=== PATIENT | male | born 1960 | race Caucasian/White ===

== ENCOUNTER 2017-10-16 23:48 | Inpatient (IN) | payer BC, MEDICARE, OTHER ==
[~2017-10-16] VITALS: Ht 177.8 cm; Wt 108.0 kg
[~2017-10-16 23:48] MED LIST: ALD25T PO; ASPI-612 PO; CARV-50 PO; FURO80TA87 PO; LISI-645 PO
[2017-10-17 01:32] LABS: INR 1.4 INR; PARTIAL THROMBOPLASTIN TIME 31 SECONDS (22-32); PROTHROMBIN TIME 14.2 SECONDS (9.0-12.0)
[2017-10-17 01:59] LABS: ALANINE AMINOTRANSFERASE 30 U/L (12-78); ALBUMIN 3.2 G/DL (3.4-5.0); ALBUMIN/GLOBULIN RATIO 0.8 (1.1-1.5); ALKALINE PHOSPHATASE 135 IU/L (46-116); ANION GAP 6 (8-16); ASPARTATE AMINO TRANSFERASE 23 U/L (10-37); BILIRUBIN,TOTAL 0.6 MG/DL (0.1-1.0); BLOOD UREA NITROGEN 39 MG/DL (7-18); BUN/CREATININE RATIO 19.5 (5.4-32.0); CALCIUM 8.7 MG/DL (8.5-10.1); CHLORIDE 102 MMOL/L (99-107); GLUCOSE 157 MG/DL (70-104); POTASSIUM 3.8 MMOL/L (3.5-5.1); SODIUM 141 MMOL/L (135-145); TOTAL CARBON DIOXIDE 33.1 MMOL/L (24-32); eGFR 35 ML/MIN
[2017-10-17] MEDS ORDERED: aspirin 81mg tab.chew PO ONE (02:40)
[2017-10-17] MEDS ORDERED: furosemide 10 MG/1 ML 10ml inj IV ONE ×2 (02:40→09:25)
[2017-10-17] MEDS: metoprolol tartrate 1mg/ml inj IV SCH ×3 (03:07→04:02)
[2017-10-17] MEDS ORDERED: mag hydrox/Alum hydrox/simeth 30ml oral suspension PO PRN (03:40)
[2017-10-17] MEDS ORDERED: potassium Cl 20 mEq SR tablet PO PRN (03:40)
[2017-10-17] MEDS ORDERED: magnesium hydroxide 30ml (MOM) UD suspension PO PRN (03:40)
[2017-10-17] MEDS ORDERED: ondansetron/PF 4mg/2ml inj IV PRN (03:40)
[2017-10-17] MEDS ORDERED: Neutra Phos packet PO PRN (03:40)
[2017-10-17] MEDS ORDERED: sodium phosphate inj. 30 MMOL in dextrose 5%-water 250 ML IV PRN (03:40)
[2017-10-17] MEDS ORDERED: magnesium 4gm in 100ml NS 100 ML IV PRN (03:40)
[2017-10-17] MEDS ORDERED: magnesium 2GM in 50ml NS 50 ML IV PRN (03:40)
[2017-10-17] MEDS ORDERED: sodium phosphate inj. 15 MMOL in dextrose 5%-water 150 ML IV PRN (03:40)
[2017-10-17] MEDS ORDERED: magnesium Cl slow-release 64mg tablet PO PRN (03:40)
[2017-10-17] MEDS ORDERED: acetaminophen 325mg tablet PO PRN (03:40)
[2017-10-17] MEDS ORDERED: heparin 10,000 units/1 ML INJ IV ONE (03:45)
[2017-10-17] MEDS ORDERED: nitroGLYCERIN-Tridil 50MG/D5W 250 ML IV SCH (03:45)
[2017-10-17] MEDS ORDERED: heparin 10,000 units/1 ML INJ IV PRN (03:45)
[2017-10-17 05:52] LABS: ALBUMIN 3.2 G/DL (3.4-5.0); ANION GAP 4 (8-16); BLOOD UREA NITROGEN 38 MG/DL (7-18); CALCIUM 8.6 MG/DL (8.5-10.1); CHLORIDE 103 MMOL/L (99-107); GLUCOSE 118 MG/DL (70-104); MAGNESIUM 2.2 MG/DL (1.5-2.4); PHOSPHORUS 4.9 MG/DL (2.3-4.5); POTASSIUM 3.8 MMOL/L (3.5-5.1); SODIUM 143 MMOL/L (135-145); TOTAL CARBON DIOXIDE 36.1 MMOL/L (24-32); eGFR 35 ML/MIN
[2017-10-17 06:57] LABS: BASOPHILS # (AUTO) 0.1 X10'3 (0-0.2); BASOPHILS % (AUTO) 0.7 % (0-1); EOSINOPHILS # (AUTO) 0.3 X10'3 (0-0.9); EOSINOPHILS % (AUTO) 2.9 % (0-6); HEMATOCRIT 46.8 % (42.0-52.0); HEMOGLOBIN 15.5 g/dl (14.0-17.9); LYMPHOCYTES % (AUTO) 17.5 % (21-51); MEAN CORPUSCULAR HEMOGLOBIN 27.7 PG (27.0-31.0); MEAN CORPUSCULAR HGB CONC 33.2 % (33.0-36.5); MEAN CORPUSCULAR VOLUME 83.5 FL (78-98); MEAN PLATELET VOLUME 8.9 FL (7.4-10.4); MONOCYTES # (AUTO) 0.8 X10'3 (0-0.9); MONOCYTES % (AUTO) 6.7 % (2-12); NEUTROPHILS # (AUTO) 8.2 X10'3 (1.8-7.7); NEUTROPHILS % (AUTO) 72.2 % (42-75); PLATELET COUNT 213 X10'3 (140-440); RED CELL DISTRIBUTION WIDTH 15.9 % (11.5-14.5); WHITE BLOOD COUNT 11.3 X10'3 (4.5-11.0)
[2017-10-17] MEDS: nicotine 21mg patch - 24 hr TD SCH (08:50)
[2017-10-17] MEDS ORDERED: FURO-150 PO (08:50)
[2017-10-17] MEDS: carVEDilol 12.5mg tablet PO SCH ×2 (08:51→20:51)
[2017-10-17] MEDS: aspirin 81mg tablet.DR PO SCH (08:51)
[2017-10-17] MEDS: pantoprazole 40mg Tablet.DR PO SCH (08:51)
[2017-10-17] MEDS: lisinopril 20mg tablet PO SCH (08:51)
[2017-10-17] MEDS ORDERED: labetalol 20mg/4ml (5mg/ml) syringe IV PRN (09:25)
[2017-10-17] MEDS ORDERED: AMLO2.5T2 PO (09:34)
[2017-10-17] MEDS ORDERED: RIVA20TA PO (09:36)
[2017-10-17] MEDS ORDERED: amLODIPine 5mg tablet PO ONE (09:40)
[2017-10-17] MEDS ORDERED: rivaroxaban 20mg tablet PO SCH (09:40)
[2017-10-17] MEDS ORDERED: hydrALAZINE 20mg/ml inj. IV PRN (09:55)
[2017-10-17] MEDS: spironolactone 25 MG tablet PO SCH ×2 (10:21→20:00)
[2017-10-17] MEDS ORDERED: rivaroxaban 20mg tablet PO ONE (10:40)
[2017-10-17 10:53] LABS: ALBUMIN 3.1 G/DL (3.4-5.0); ANION GAP 6 (8-16); BLOOD UREA NITROGEN 41 MG/DL (7-18); BUN/CREATININE RATIO 21.6 (5.4-32.0); CALCIUM 8.6 MG/DL (8.5-10.1); CHLORIDE 102 MMOL/L (99-107); GLUCOSE 160 MG/DL (70-104); MAGNESIUM 2.2 MG/DL (1.5-2.4); PHOSPHORUS 4.9 MG/DL (2.3-4.5); POTASSIUM 3.7 MMOL/L (3.5-5.1); SODIUM 144 MMOL/L (135-145); TOTAL CARBON DIOXIDE 35.6 MMOL/L (24-32); eGFR 37 ML/MIN
[2017-10-17 16:15] VITALS: BP 144/89
[2017-10-17 18:07] LABS: ANION GAP 5 (8-16); BLOOD UREA NITROGEN 39 MG/DL (7-18); BUN/CREATININE RATIO 20.5 (5.4-32.0); CALCIUM 8.8 MG/DL (8.5-10.1); CHLORIDE 101 MMOL/L (99-107); GLUCOSE 75 MG/DL (70-104); MAGNESIUM 2.2 MG/DL (1.5-2.4); PHOSPHORUS 3.6 MG/DL (2.3-4.5); POTASSIUM 3.4 MMOL/L (3.5-5.1); SODIUM 146 MMOL/L (135-145); TOTAL CARBON DIOXIDE 39.6 MMOL/L (24-32); eGFR 37 ML/MIN
[2017-10-17 18:08] LABS: ALBUMIN 3.3 G/DL (3.4-5.0)
[2017-10-17 19:00] VITALS: BP 159/96
[2017-10-17] MEDS: furosemide 40mg/4ml inj IV SCH (20:50)
[2017-10-17 22:21] LABS: ALBUMIN 3.7 G/DL (3.4-5.0); ANION GAP 7 (8-16); BLOOD UREA NITROGEN 33 MG/DL (7-18); BUN/CREATININE RATIO 18.3 (5.4-32.0); CALCIUM 9.2 MG/DL (8.5-10.1); CHLORIDE 98 MMOL/L (99-107); GLUCOSE 167 MG/DL (70-104); MAGNESIUM 2.1 MG/DL (1.5-2.4); PHOSPHORUS 3.2 MG/DL (2.3-4.5); POTASSIUM 3.2 MMOL/L (3.5-5.1); SODIUM 144 MMOL/L (135-145); TOTAL CARBON DIOXIDE 39.3 MMOL/L (24-32); eGFR 39 ML/MIN
[2017-10-18] VITALS (7 sets, daily range): BP systolic 113–166; BP diastolic 62–100
[2017-10-18] MEDS: potassium Cl 20 mEq SR tablet PO PRN ×5 (00:58→20:09)
[2017-10-18 05:35] LABS: BASOPHILS # (AUTO) 0.1 X10'3 (0-0.2); BASOPHILS % (AUTO) 0.4 % (0-1); EOSINOPHILS # (AUTO) 0.2 X10'3 (0-0.9); EOSINOPHILS % (AUTO) 2.1 % (0-6); HEMATOCRIT 49.2 % (42.0-52.0); HEMOGLOBIN 16.2 g/dl (14.0-17.9); LYMPHOCYTES # (AUTO) 1.2 X10'3 (1.1-4.8); LYMPHOCYTES % (AUTO) 10.2 % (21-51); MEAN CORPUSCULAR HEMOGLOBIN 27.8 PG (27.0-31.0); MEAN CORPUSCULAR HGB CONC 32.9 % (33.0-36.5); MEAN CORPUSCULAR VOLUME 84.7 FL (78-98); MONOCYTES # (AUTO) 0.8 X10'3 (0-0.9); MONOCYTES % (AUTO) 6.6 % (2-12); NEUTROPHILS # (AUTO) 9.4 X10'3 (1.8-7.7); NEUTROPHILS % (AUTO) 80.7 % (42-75); PLATELET COUNT 229 X10'3 (140-440); RED BLOOD COUNT 5.81 X10'6 (4.70-6.10); WHITE BLOOD COUNT 11.6 X10'3 (4.5-11.0)
[2017-10-18 06:29] LABS: ALANINE AMINOTRANSFERASE 31 U/L (12-78); ALBUMIN 3.5 G/DL (3.4-5.0); ALBUMIN/GLOBULIN RATIO 0.8 (1.1-1.5); ALKALINE PHOSPHATASE 147 IU/L (46-116); ANION GAP 6 (8-16); ASPARTATE AMINO TRANSFERASE 26 U/L (10-37); BILIRUBIN,TOTAL 1.2 MG/DL (0.1-1.0); BLOOD UREA NITROGEN 33 MG/DL (7-18); BUN/CREATININE RATIO 19.4 (5.4-32.0); CALCIUM 9.1 MG/DL (8.5-10.1); CHLORIDE 99 MMOL/L (99-107); GLUCOSE 156 MG/DL (70-104); MAGNESIUM 2.3 MG/DL (1.5-2.4); PHOSPHORUS 3.4 MG/DL (2.3-4.5); POTASSIUM 3.4 MMOL/L (3.5-5.1); SODIUM 142 MMOL/L (135-145); TOTAL PROTEIN 7.7 G/DL (6.4-8.2); eGFR 42 ML/MIN
[2017-10-18] MEDS: pantoprazole 40mg Tablet.DR PO SCH (07:13)
[2017-10-18] MEDS: furosemide 40mg/4ml inj IV SCH ×2 (07:13→20:08)
[2017-10-18] MEDS: aspirin 81mg tablet.DR PO SCH (07:14)
[2017-10-18] MEDS: spironolactone 25 MG tablet PO SCH ×2 (07:14→20:09)
[2017-10-18] MEDS: carVEDilol 12.5mg tablet PO SCH (07:14)
[2017-10-18] MEDS: lisinopril 20mg tablet PO SCH (07:15)
[2017-10-18] MEDS: rivaroxaban 20mg tablet PO SCH (07:15)
[2017-10-18] MEDS: nicotine 21mg patch - 24 hr TD SCH (07:20)
[2017-10-18] MEDS ORDERED: amLODIPine 5mg tablet PO SCH (08:00)
[2017-10-18] MEDS ORDERED: enoxaparin 40mg/0.4ml syringe SUBCUT SCH (19:50)
[2017-10-18] MEDS: pantoprazole 40 MG vial IV SCH (19:55)
[2017-10-18] MEDS ORDERED: carvedilol 6.25mg tablet PO SCH (20:00)
[2017-10-19 02:00] VITALS: BP 130/74
[2017-10-19 05:57] LABS: BASOPHILS % (AUTO) 0.2 % (0-1); EOSINOPHILS # (AUTO) 0.3 X10'3 (0-0.9); EOSINOPHILS % (AUTO) 2.5 % (0-6); HEMATOCRIT 51.1 % (42.0-52.0); HEMOGLOBIN 16.4 g/dl (14.0-17.9); LYMPHOCYTES # (AUTO) 1.4 X10'3 (1.1-4.8); MEAN CORPUSCULAR HEMOGLOBIN 27.5 PG (27.0-31.0); MEAN CORPUSCULAR VOLUME 85.9 FL (78-98); MEAN PLATELET VOLUME 9.3 FL (7.4-10.4); MONOCYTES # (AUTO) 0.9 X10'3 (0-0.9); MONOCYTES % (AUTO) 7.4 % (2-12); NEUTROPHILS % (AUTO) 77.9 % (42-75); PLATELET COUNT 229 X10'3 (140-440); RED BLOOD COUNT 5.95 X10'6 (4.70-6.10); RED CELL DISTRIBUTION WIDTH 16.1 % (11.5-14.5); WHITE BLOOD COUNT 11.6 X10'3 (4.5-11.0)
[2017-10-19 06:07] LABS: ALANINE AMINOTRANSFERASE 22 U/L (12-78); ALBUMIN 3.3 G/DL (3.4-5.0); ALBUMIN/GLOBULIN RATIO 0.8 (1.1-1.5); ALKALINE PHOSPHATASE 140 IU/L (46-116); ANION GAP 5 (8-16); ASPARTATE AMINO TRANSFERASE 21 U/L (10-37); BILIRUBIN,TOTAL 0.9 MG/DL (0.1-1.0); BLOOD UREA NITROGEN 30 MG/DL (7-18); BUN/CREATININE RATIO 17.6 (5.4-32.0); CALCIUM 9.1 MG/DL (8.5-10.1); CHLORIDE 99 MMOL/L (99-107); GLUCOSE 174 MG/DL (70-104); MAGNESIUM 2.2 MG/DL (1.5-2.4); PHOSPHORUS 3.2 MG/DL (2.3-4.5); POTASSIUM 3.9 MMOL/L (3.5-5.1); SODIUM 141 MMOL/L (135-145); TOTAL CARBON DIOXIDE 37.1 MMOL/L (24-32); TOTAL PROTEIN 7.3 G/DL (6.4-8.2); eGFR 42 ML/MIN
[2017-10-19 07:00] VITALS: BP 134/61
[2017-10-19] MEDS: spironolactone 25 MG tablet PO SCH ×2 (09:21→19:53)
[2017-10-19] MEDS: aspirin 81mg tablet.DR PO SCH (09:21)
[2017-10-19] MEDS: rivaroxaban 20mg tablet PO SCH (09:21)
[2017-10-19] MEDS: lisinopril 20mg tablet PO SCH (09:21)
[2017-10-19] MEDS: carVEDilol 12.5mg tablet PO SCH ×2 (09:22→19:53)
[2017-10-19] MEDS: pantoprazole 40 MG vial IV SCH (09:22)
[2017-10-19] MEDS: furosemide 40mg/4ml inj IV SCH ×2 (09:22→19:55)
[2017-10-19] MEDS ORDERED: pneumococcal 23-VAL P-sac vacc 25 mcg/0.5ml vial IMVAC ONE (10:00)
[2017-10-19 11:00] VITALS: BP 121/67
[2017-10-19 15:00] VITALS: BP 138/89
[2017-10-19 18:30] VITALS: BP 144/66
[2017-10-19 22:00] VITALS: BP 104/76
[2017-10-20 03:00] VITALS: BP 145/89
[2017-10-20 05:21] LABS: BASOPHILS # (AUTO) 0.1 X10'3 (0-0.2); BASOPHILS % (AUTO) 0.4 % (0-1); EOSINOPHILS # (AUTO) 0.2 X10'3 (0-0.9); EOSINOPHILS % (AUTO) 1.7 % (0-6); HEMATOCRIT 50.9 % (42.0-52.0); HEMOGLOBIN 16.4 g/dl (14.0-17.9); LYMPHOCYTES # (AUTO) 1.2 X10'3 (1.1-4.8); LYMPHOCYTES % (AUTO) 8.3 % (21-51); MEAN CORPUSCULAR HEMOGLOBIN 27.5 PG (27.0-31.0); MEAN CORPUSCULAR HGB CONC 32.2 % (33.0-36.5); MEAN CORPUSCULAR VOLUME 85.6 FL (78-98); MONOCYTES # (AUTO) 0.9 X10'3 (0-0.9); MONOCYTES % (AUTO) 6.4 % (2-12); NEUTROPHILS # (AUTO) 11.7 X10'3 (1.8-7.7); NEUTROPHILS % (AUTO) 83.2 % (42-75); PLATELET COUNT 218 X10'3 (140-440); RED BLOOD COUNT 5.94 X10'6 (4.70-6.10)
[2017-10-20 06:00] LABS: ALANINE AMINOTRANSFERASE 26 U/L (12-78); ALBUMIN 3.4 G/DL (3.4-5.0); ALBUMIN/GLOBULIN RATIO 0.8 (1.1-1.5); ALKALINE PHOSPHATASE 142 IU/L (46-116); ANION GAP 5 (8-16); ASPARTATE AMINO TRANSFERASE 24 U/L (10-37); BLOOD UREA NITROGEN 32 MG/DL (7-18); CALCIUM 9.4 MG/DL (8.5-10.1); CHLORIDE 98 MMOL/L (99-107); GLUCOSE 130 MG/DL (70-104); MAGNESIUM 2.1 MG/DL (1.5-2.4); POTASSIUM 3.9 MMOL/L (3.5-5.1); SODIUM 142 MMOL/L (135-145); TOTAL CARBON DIOXIDE 39.5 MMOL/L (24-32); TOTAL PROTEIN 7.7 G/DL (6.4-8.2); eGFR 45 ML/MIN
[2017-10-20] MEDS: pantoprazole 40mg Tablet.DR PO SCH (07:58)
[2017-10-20] MEDS: rivaroxaban 20mg tablet PO SCH (07:58)
[2017-10-20] MEDS: spironolactone 25 MG tablet PO SCH ×2 (07:58→20:12)
[2017-10-20] MEDS: lisinopril 20mg tablet PO SCH (07:58)
[2017-10-20] MEDS: aspirin 81mg tablet.DR PO SCH (07:58)
[2017-10-20] MEDS: furosemide 40mg/4ml inj IV SCH ×2 (07:58→20:12)
[2017-10-20] MEDS: carVEDilol 12.5mg tablet PO SCH ×2 (07:58→20:12)
[2017-10-20] MEDS: nicotine 21mg patch - 24 hr TD SCH ×2 (07:59→08:00)
[2017-10-20] MEDS: normal saline 1000ml 1,000 ML IV SCH (10:25)
[2017-10-20] MEDS: CefTRIAXone/D5W-Rocephin 1gm 50 ML IV SCH (10:53)
[2017-10-20 11:00] VITALS: BP 133/80
[2017-10-20 11:12] LABS: CLARITY,URINE CLEAR (Clear); COLOR,URINE STRAW (Yellow); GLUCOSE, URINE NEGATIVE (Neg); KETONES,URINE NEGATIVE (Neg); LEUKOCYTE ESTERASE ,URINE NEGATIVE (Neg); NITRITES, URINE NEGATIVE (Neg); OCCULT BLOOD,URINE TRACE-INTACT (Neg); PROTEIN,URINE TRACE mg/dl (Neg)
[2017-10-20 11:13] LABS: UA COLLECTION TYPE NON-SPECIFIED
[2017-10-20 11:25] LABS: BACTERIA,URINE FEW /HPF (Neg); RBC,URINE 0-2 /HPF (0-2); SQUAMOUS EPITHELIAL CELL,UR FEW /LPF (FEW); WBC,URINE 0-4 /HPF (0-4)
[2017-10-20 11:30] LABS: URINE AMPHETAMINE SCREEN NEGATIVE (Neg); URINE BARBITUATE SCREEN NEGATIVE (Neg); URINE BENZODIAZEPINES SCREEN NEGATIVE (Neg); URINE CANNABINOID SCREEN NEGATIVE (Neg); URINE COCAINE SCREEN NEGATIVE (Neg); URINE METHADONE SCREEN NEGATIVE (Neg); URINE OPIATE SCREEN NEGATIVE (Neg); URINE PHENCYCLIDINE SCREEN NEGATIVE (Neg)
[2017-10-20 12:05] VITALS: BP 182/91
[2017-10-20 15:00] VITALS: BP 139/87
[2017-10-20] MEDS: ibuprofen 200mg tablet PO PRN (15:38)
[2017-10-20 19:00] VITALS: BP 126/82
[2017-10-20 23:00] VITALS: BP 135/84
[2017-10-21 03:00] VITALS: BP 125/84
[2017-10-21] MEDS: normal saline 1000ml 1,000 ML IV SCH (03:29)
[2017-10-21 05:41] LABS: BASOPHILS % (AUTO) 0.2 % (0-1); EOSINOPHILS % (AUTO) 0.2 % (0-6); HEMATOCRIT 49.9 % (42.0-52.0); LYMPHOCYTES # (AUTO) 0.5 X10'3 (1.1-4.8); LYMPHOCYTES % (AUTO) 4.8 % (21-51); MEAN CORPUSCULAR HEMOGLOBIN 27.3 PG (27.0-31.0); MEAN CORPUSCULAR HGB CONC 32.1 % (33.0-36.5); MEAN CORPUSCULAR VOLUME 85.1 FL (78-98); MEAN PLATELET VOLUME 9.4 FL (7.4-10.4); MONOCYTES # (AUTO) 0.5 X10'3 (0-0.9); NEUTROPHILS % (AUTO) 89.8 % (42-75); PLATELET COUNT 160 X10'3 (140-440); RED BLOOD COUNT 5.86 X10'6 (4.70-6.10); RED CELL DISTRIBUTION WIDTH 15.7 % (11.5-14.5)
[2017-10-21 06:06] LABS: ALANINE AMINOTRANSFERASE 31 U/L (12-78); ALBUMIN 2.8 G/DL (3.4-5.0); ALBUMIN/GLOBULIN RATIO 0.7 (1.1-1.5); ALKALINE PHOSPHATASE 124 IU/L (46-116); ANION GAP 4 (8-16); ASPARTATE AMINO TRANSFERASE 29 U/L (10-37); BLOOD UREA NITROGEN 31 MG/DL (7-18); BUN/CREATININE RATIO 20.7 (5.4-32.0); CALCIUM 8.5 MG/DL (8.5-10.1); CHLORIDE 97 MMOL/L (99-107); GLUCOSE 147 MG/DL (70-104); SODIUM 135 MMOL/L (135-145); TOTAL CARBON DIOXIDE 33.8 MMOL/L (24-32); TOTAL PROTEIN 6.7 G/DL (6.4-8.2); eGFR 48 ML/MIN
[2017-10-21] MEDS: ibuprofen 200mg tablet PO PRN (06:28)
[2017-10-21 07:00] VITALS: BP 154/88
[2017-10-21] MEDS: nicotine 21mg patch - 24 hr TD SCH (07:06)
[2017-10-21] MEDS: rivaroxaban 20mg tablet PO SCH (07:06)
[2017-10-21] MEDS: furosemide 40mg/4ml inj IV SCH (07:06)
[2017-10-21] MEDS: lisinopril 20mg tablet PO SCH (07:07)
[2017-10-21] MEDS: pantoprazole 40mg Tablet.DR PO SCH (07:07)
[2017-10-21] MEDS: aspirin 81mg tablet.DR PO SCH (07:07)
[2017-10-21] MEDS: spironolactone 25 MG tablet PO SCH (07:07)
[2017-10-21] MEDS: carVEDilol 12.5mg tablet PO SCH (07:07)
[2017-10-21] MEDS: CefTRIAXone/D5W-Rocephin 1gm 50 ML IV SCH (10:57)
[2017-10-21 11:00] VITALS: BP 109/61
[2017-10-21] MEDS ORDERED: DOXY100V2 PO (11:17)
== END 2017-10-21 15:44 | disposition home or self-care (01) | DRG 280 ==
LOC: ER 23:49 → ED HOLD 10-17 03:38 → SUR 3N 10-17 16:20 → PCU 3S 10-18 15:11
PROVIDERS: ADMIT Family Medicine; ATTEND Internal Medicine
PROC: 4B02XSZ Measurement of Cardiac Pacemaker, External Approach (ICD-10-PCS; principal; 2017-10-18)
DX: I13.0 Hypertensive heart and chronic kidney disease with heart failure and stage 1 through stage 4 chronic kidney disease, or unspecified chronic kidney disease (principal); I21.4 Non-ST elevation (NSTEMI) myocardial infarction; I50.43 Acute on chronic combined systolic (congestive) and diastolic (congestive) heart failure; I47.2 Ventricular tachycardia; I44.2 Atrioventricular block, complete; N17.9 Acute kidney failure, unspecified; I27.20 Pulmonary hypertension, unspecified; L03.116 Cellulitis of left lower limb; I82.501 Chronic embolism and thrombosis of unspecified deep veins of right lower extremity; I16.1 Hypertensive emergency; I42.9 Cardiomyopathy, unspecified; J44.9 Chronic obstructive pulmonary disease, unspecified; E87.6 Hypokalemia; N18.9 Chronic kidney disease, unspecified; E78.5 Hyperlipidemia, unspecified; R73.9 Hyperglycemia, unspecified; G47.33 Obstructive sleep apnea (adult) (pediatric); I25.10 Atherosclerotic heart disease of native coronary artery without angina pectoris; F12.90 Cannabis use, unspecified, uncomplicated; F17.210 Nicotine dependence, cigarettes, uncomplicated; Z95.810 Presence of automatic (implantable) cardiac defibrillator; Z79.899 Other long term (current) drug therapy; Z79.01 Long term (current) use of anticoagulants; Z82.49 Family history of ischemic heart disease and other diseases of the circulatory system
CPT/HCPCS: 36415; 71046; 80053; 80069; 80305; 81001; 83735; 83880; 84100; 84145; 84443; 84484; 85025; 85610; 85651; 85730; 87070; 87075; 87077; 87186; 87502; 87503; 90732; 93005; 93306; 96374; 99285; A6212; A6213; A6446; A6449; C9113; J0360; J0696; J1644; J1940; J3490; J7030

== ENCOUNTER 2018-01-12 12:23 | Emergency (ER) | payer MEDICARE, OTHER ==
[~2018-01-12] VITALS: Ht 177.8 cm; Wt 114.0 kg
[~2018-01-12 12:23] MED LIST changes: -ASPI-612 PO; +DOXY100V2 PO; +FURO-150 PO; -FURO80TA87 PO; +RIVA20TA PO
[2018-01-12] MEDS ORDERED: carVEDilol 12.5mg tablet PO ONE (12:50)
[2018-01-12] MEDS ORDERED: lisinopril 10 MG tablet PO ONE (12:50)
[2018-01-12] MEDS ORDERED: furosemide 20MG tablet PO ONE (12:50)
[2018-01-12] MEDS ORDERED: oxymetazoline 15 ML nasal spray NS ONE (12:50)
[2018-01-12 14:11] VITALS: BP 179/113
[2018-01-12] MEDS ORDERED: ondansetron 4mg rapidly disintigrating tab PO ONE (14:40)
== END 2018-01-12 15:08 | disposition home or self-care (01) ==
LOC: ER 12:23
DX: R04.0 Epistaxis (principal); I11.0 Hypertensive heart disease with heart failure; I50.9 Heart failure, unspecified; J44.9 Chronic obstructive pulmonary disease, unspecified; F12.10 Cannabis abuse, uncomplicated; Z95.0 Presence of cardiac pacemaker; Z79.899 Other long term (current) drug therapy
CPT/HCPCS: 99284

== ENCOUNTER 2018-01-19 04:59 | Emergency (ER) | payer MEDICARE, OTHER ==
[~2018-01-19] VITALS: Ht 177.8 cm; Wt 114.2 kg
[2018-01-19] MEDS ORDERED: tranexamic acid 100mg/ml inj. ONE (05:19)
[2018-01-19] MEDS ORDERED: metoprolol tartrate 50mg tablet PO ONE (05:40)
[2018-01-19 06:21] VITALS: BP 145/99
[2018-01-19] MEDS ORDERED: phenylephrine 1% (X-tra strg) 15ml nasal spray NS ONE (06:55)
[2018-01-19] MEDS ORDERED: LIDOcaine 4% (40 mg/ml) topical solution 50ml TP ONE (06:55)
[2018-01-19] MEDS ORDERED: amoxicillin 250mg capsule PO ONE (07:35)
[2018-01-19] MEDS ORDERED: HYDROcodone/acetaminophen 10/325mg tab PO ONE (07:35)
[2018-01-19] MEDS ORDERED: AMOX500C2 PO (08:11)
== END 2018-01-19 08:36 | disposition home or self-care (01) ==
LOC: ER 04:59
DX: R04.0 Epistaxis (principal); I11.0 Hypertensive heart disease with heart failure; I50.9 Heart failure, unspecified; J44.9 Chronic obstructive pulmonary disease, unspecified; F17.210 Nicotine dependence, cigarettes, uncomplicated; F12.10 Cannabis abuse, uncomplicated; Z95.0 Presence of cardiac pacemaker
CPT/HCPCS: 30901; 99284

== ENCOUNTER 2018-01-21 14:16 | Emergency (ER) | payer MEDICARE, OTHER ==
[~2018-01-21] VITALS: Ht 177.8 cm; Wt 113.6 kg
[~2018-01-21 14:16] MED LIST changes: +AMOX500C2 PO
[2018-01-21 14:19] VITALS: BP 156/95
== END 2018-01-21 14:55 | disposition home or self-care (01) ==
LOC: ER 14:16
DX: Z48.00 Encounter for change or removal of nonsurgical wound dressing (principal); J44.9 Chronic obstructive pulmonary disease, unspecified; I11.0 Hypertensive heart disease with heart failure; I50.9 Heart failure, unspecified; F12.10 Cannabis abuse, uncomplicated; F17.210 Nicotine dependence, cigarettes, uncomplicated; Z95.0 Presence of cardiac pacemaker; Z79.899 Other long term (current) drug therapy
CPT/HCPCS: 99281

== ENCOUNTER 2018-06-22 01:42 | Emergency (ER) | payer MEDICARE, OTHER ==
[~2018-06-22] VITALS: Ht 177.8 cm; Wt 120.5 kg
[~2018-06-22 01:42] MED LIST changes: -AMOX500C2 PO
[2018-06-22 02:40] LABS: BASOPHILS % (AUTO) 0.2 % (0-1); EOSINOPHILS # (AUTO) 0.3 X10'3 (0-0.9); EOSINOPHILS % (AUTO) 2.8 % (0-6); HEMOGLOBIN 14.8 g/dl (14.0-17.9); LYMPHOCYTES # (AUTO) 1.5 X10'3 (1.1-4.8); LYMPHOCYTES % (AUTO) 13.7 % (21-51); MEAN CORPUSCULAR HEMOGLOBIN 23.7 PG (27.0-31.0); MEAN CORPUSCULAR HGB CONC 30.1 % (33.0-36.5); MEAN CORPUSCULAR VOLUME 78.7 FL (78-98); MEAN PLATELET VOLUME 9.5 FL (7.4-10.4); MONOCYTES % (AUTO) 9.2 % (2-12); NEUTROPHILS # (AUTO) 8.3 X10'3 (1.8-7.7); NEUTROPHILS % (AUTO) 74.1 % (42-75); PLATELET COUNT 235 X10'3 (140-440); RED BLOOD COUNT 6.23 X10'6 (4.70-6.10); RED CELL DISTRIBUTION WIDTH 18.5 % (11.5-14.5); WHITE BLOOD COUNT 11.2 X10'3 (4.5-11.0)
[2018-06-22] MEDS ORDERED: SACU1TAB (02:43)
[2018-06-22] MEDS ORDERED: ALBU18HF2 (02:44)
[2018-06-22 02:49] LABS: INR 1.2 INR; PARTIAL THROMBOPLASTIN TIME 28 SECONDS (22-32); PROTHROMBIN TIME 12.8 SECONDS (9.0-12.0)
[2018-06-22 02:54] LABS: ALANINE AMINOTRANSFERASE 27 U/L (12-78); ALBUMIN 3.2 G/DL (3.4-5.0); ALBUMIN/GLOBULIN RATIO 0.8 (1.1-1.5); ALKALINE PHOSPHATASE 159 IU/L (46-116); ANION GAP 4 (8-16); ASPARTATE AMINO TRANSFERASE 31 U/L (10-37); BILIRUBIN,TOTAL 0.9 MG/DL (0.1-1.0); BLOOD UREA NITROGEN 34 MG/DL (7-18); BUN/CREATININE RATIO 19.2 (5.4-32.0); CALCIUM 8.8 MG/DL (8.5-10.1); CHLORIDE 102 MMOL/L (99-107); CREATININE 1.77 MG/DL (0.60-1.10); GLUCOSE 147 MG/DL (70-104); POTASSIUM 4.1 MMOL/L (3.5-5.1); SODIUM 142 MMOL/L (135-145); TOTAL CARBON DIOXIDE 35.7 MMOL/L (24-32); TOTAL PROTEIN 7.2 G/DL (6.4-8.2); eGFR 40 ML/MIN
[2018-06-22 03:01] LABS: MAGNESIUM 2.1 MG/DL (1.5-2.4); PHOSPHORUS 3.8 MG/DL (2.3-4.5)
[2018-06-22] MEDS ORDERED: furosemide 10 MG/1 ML 10ml inj IV ONE (03:10)
[2018-06-22 03:29] VITALS: BP 165/89
== END 2018-06-22 03:59 | disposition home or self-care (01) ==
LOC: ER 01:42
DX: I11.0 Hypertensive heart disease with heart failure (principal); I50.9 Heart failure, unspecified; R60.0 Localized edema; J44.9 Chronic obstructive pulmonary disease, unspecified; Z95.0 Presence of cardiac pacemaker; Z79.899 Other long term (current) drug therapy
CPT/HCPCS: 36415; 71046; 80053; 83735; 83880; 84100; 84484; 85025; 85610; 85730; 93005; 96374; 99285; J1940

== ENCOUNTER 2018-07-12 01:26 | Emergency (ER) | payer MEDICARE, OTHER ==
[~2018-07-12] VITALS: Ht 177.8 cm; Wt 121.4 kg
[~2018-07-12 01:26] MED LIST changes: +ALBU18HF2; -ALD25T PO; -DOXY100V2 PO; -LISI-645 PO; +SACU1TAB
[2018-07-12 01:32] VITALS: BP 160/121
[2018-07-12 02:10] LABS: EOSINOPHILS # (AUTO) 0.3 X10'3 (0-0.9); HEMATOCRIT 47.9 % (42.0-52.0); HEMOGLOBIN 14.7 g/dl (14.0-17.9); MEAN CORPUSCULAR HEMOGLOBIN 24.2 PG (27.0-31.0); NEUTROPHILS # (AUTO) 7.5 X10'3 (1.8-7.7); RED CELL DISTRIBUTION WIDTH 18.3 % (11.5-14.5)
[2018-07-12 02:14] LABS: BASOPHILS % (AUTO) 0.2 % (0-1); LYMPHOCYTES # (AUTO) 1.5 X10'3 (1.1-4.8); LYMPHOCYTES % (AUTO) 15.3 % (21-51); MEAN CORPUSCULAR HGB CONC 30.6 % (33.0-36.5); MEAN CORPUSCULAR VOLUME 78.8 FL (78-98); MEAN PLATELET VOLUME 9.3 FL (7.4-10.4); NEUTROPHILS % (AUTO) 74.5 % (42-75); PLATELET COUNT 194 X10'3 (140-440); RED BLOOD COUNT 6.07 X10'6 (4.70-6.10)
[2018-07-12 02:15] LABS: MONOCYTES # (AUTO) 0.7 X10'3 (0-0.9)
[2018-07-12 02:26] LABS: ALANINE AMINOTRANSFERASE 31 U/L (12-78); ALBUMIN 3.1 G/DL (3.4-5.0); ALBUMIN/GLOBULIN RATIO 0.7 (1.1-1.5); ALKALINE PHOSPHATASE 194 IU/L (46-116); ANION GAP 7 (8-16); ASPARTATE AMINO TRANSFERASE 31 U/L (10-37); BILIRUBIN,TOTAL 0.9 MG/DL (0.1-1.0); BLOOD UREA NITROGEN 45 MG/DL (7-18); BUN/CREATININE RATIO 24.1 (5.4-32.0); CALCIUM 8.9 MG/DL (8.5-10.1); CHLORIDE 101 MMOL/L (99-107); CREATININE 1.87 MG/DL (0.60-1.10); GLUCOSE 97 MG/DL (70-104); POTASSIUM 4.2 MMOL/L (3.5-5.1); SODIUM 140 MMOL/L (135-145); TOTAL CARBON DIOXIDE 32.5 MMOL/L (24-32); TOTAL PROTEIN 7.4 G/DL (6.4-8.2); eGFR 37 ML/MIN
[2018-07-12 02:32] LABS: MAGNESIUM 2.2 MG/DL (1.5-2.4)
[2018-07-12] MEDS ORDERED: FURO40TA4 PO (03:01)
[2018-07-12 03:51] LABS: ANISOCYTOSIS 2+; PLATELET ESTIMATE NORMAL
== END 2018-07-12 03:12 | disposition home or self-care (01) ==
LOC: ER 01:27
DX: I11.0 Hypertensive heart disease with heart failure (principal); I50.9 Heart failure, unspecified; J44.9 Chronic obstructive pulmonary disease, unspecified; F12.90 Cannabis use, unspecified, uncomplicated; I87.8 Other specified disorders of veins; Z95.0 Presence of cardiac pacemaker; Z79.899 Other long term (current) drug therapy; Z79.01 Long term (current) use of anticoagulants
CPT/HCPCS: 36415; 71046; 80053; 83735; 83880; 85025; 99285

== ENCOUNTER 2021-06-16 14:21 | Inpatient (IN) | payer MEDICARE ==
[~2021-06-16] VITALS: Ht 177.8 cm; Wt 99.8 kg
[2021-06-16] MEDS ORDERED: iohexol 350MG/ML 100ml bottle IV ONE (15:17)
[2021-06-16] MEDS ORDERED: iohexol 350 MG/ML 50ML vial IV ONE (15:19)
[2021-06-16 15:21] LABS: BASOPHILS # (AUTO) 0.1 X10'3 (0-0.2); BASOPHILS % (AUTO) 0.5 % (0-1); EOSINOPHILS # (AUTO) 0.1 X10'3 (0-0.9); EOSINOPHILS % (AUTO) 0.7 % (0-6); HEMATOCRIT 57.9 % (42.0-52.0); LYMPHOCYTES # (AUTO) 2.1 X10'3 (1.1-4.8); LYMPHOCYTES % (AUTO) 12.3 % (21-51); MEAN CORPUSCULAR HEMOGLOBIN 29.8 PG (27.0-31.0); MEAN CORPUSCULAR HGB CONC 33.3 g/dL (33.0-36.5); MEAN CORPUSCULAR VOLUME 89.4 FL (78-98); MEAN PLATELET VOLUME 9.1 FL (7.4-10.4); MONOCYTES # (AUTO) 1.3 X10'3 (0-0.9); MONOCYTES % (AUTO) 7.5 % (2-12); NEUTROPHILS # (AUTO) 13.3 X10'3 (1.8-7.7); PLATELET COUNT 241 X10'3 (140-440); RED BLOOD COUNT 6.48 X10'6 (4.70-6.10); WHITE BLOOD COUNT 16.8 X10'3 (4.5-11.0)
[2021-06-16 15:26] LABS: HEMOGLOBIN 19.3 g/dl (14.0-17.9)
[2021-06-16 15:34] LABS: ALANINE AMINOTRANSFERASE 141 U/L (12-78); ALBUMIN 3.1 G/DL (3.4-5.0); ALBUMIN/GLOBULIN RATIO 0.7 (1.1-1.5); ALKALINE PHOSPHATASE 175 IU/L (46-116); ANION GAP 9 (8-16); ASPARTATE AMINO TRANSFERASE 387 U/L (10-37); BILIRUBIN,TOTAL 1.3 MG/DL (0.1-1.0); BLOOD UREA NITROGEN 61 MG/DL (7-18); BUN/CREATININE RATIO 29.3 (5.4-32.0); CALCIUM 9.3 MG/DL (8.5-10.1); CHLORIDE 96 MMOL/L (99-107); CREATININE 2.08 MG/DL (0.60-1.10); GLUCOSE 209 MG/DL (70-104); POTASSIUM 3.9 MMOL/L (3.5-5.1); SODIUM 132 MMOL/L (135-145); TOTAL CARBON DIOXIDE 26.9 MMOL/L (24-32); TOTAL PROTEIN 7.7 G/DL (6.4-8.2); eGFR 33 ML/MIN
[2021-06-16 16:16] LABS: PARTIAL THROMBOPLASTIN TIME 32 SECONDS (22-32)
[2021-06-16] MEDS ORDERED: ondansetron/PF 4mg/2ml inj IV ONE (16:45)
[2021-06-16] MEDS ORDERED: morphine 4 MG/ML inj SYRINge IV ONE (16:45)
[2021-06-16] MEDS ORDERED: heparin 10,000 units/1 ML INJ IV ONE (17:25)
[2021-06-16] MEDS: heparin 25,000 UNIT/250ml bag 250 ML IV SCH (17:42)
[2021-06-16 18:05] LABS: BASOPHILS # (AUTO) 0.1 X10'3 (0-0.2); BASOPHILS % (AUTO) 0.5 % (0-1); EOSINOPHILS # (AUTO) 0.2 X10'3 (0-0.9); EOSINOPHILS % (AUTO) 0.9 % (0-6); HEMATOCRIT 57.3 % (42.0-52.0); LYMPHOCYTES # (AUTO) 1.9 X10'3 (1.1-4.8); LYMPHOCYTES % (AUTO) 11.2 % (21-51); MEAN CORPUSCULAR HGB CONC 33.5 g/dL (33.0-36.5); MEAN CORPUSCULAR VOLUME 89.5 FL (78-98); MONOCYTES # (AUTO) 1.4 X10'3 (0-0.9); MONOCYTES % (AUTO) 8.2 % (2-12); NEUTROPHILS # (AUTO) 13.7 X10'3 (1.8-7.7); NEUTROPHILS % (AUTO) 79.2 % (42-75); PLATELET COUNT 246 X10'3 (140-440); WHITE BLOOD COUNT 17.3 X10'3 (4.5-11.0)
[2021-06-16 18:11] LABS: HEMOGLOBIN 19.2 g/dl (14.0-17.9)
[2021-06-16] MEDS ORDERED: LIDOcaine 1% (10mg/ml) 2ml vial ONE (18:55)
[2021-06-16] MEDS ORDERED: heparin 10,000 units/1 ML INJ ONE (18:55)
[2021-06-16] MEDS ORDERED: fentaNYL/PF 50MCG/1 ML 2ML syringe ONE ×2 (19:01→20:20)
[2021-06-16] MEDS ORDERED: midazolam 1 mg/ML 2ml injection ONE (19:01)
[2021-06-16] MEDS ORDERED: LIDOcaine 1%/PF 5ML 10 MG/ML VIAL ONE (19:01)
[2021-06-16] MEDS ORDERED: heparin 1,000 UNITS/NS 500ml 500 ML ONE ×2 (19:01→20:40)
[2021-06-16] MEDS ORDERED: iohexol 300mg/ml 100ml inj. ONE (19:01)
[2021-06-16] MEDS ORDERED: magnesium hydroxide 30ml (MOM) UD suspension PO PRN (19:50)
[2021-06-16] MEDS ORDERED: mag hydrox/Alum hydrox/simeth 30ml oral suspension PO PRN (19:50)
[2021-06-16] MEDS ORDERED: ondansetron/PF 4mg/2ml inj IV PRN ×2 (19:50→21:00)
[2021-06-16] MEDS ORDERED: acetaminophen 325mg tablet PO PRN ×2 (19:50)
[2021-06-16] MEDS ORDERED: docusate sod 100mg capsule PO SCH (20:00)
[2021-06-16] MEDS ORDERED: tPA-cathflo 2 MG/2 ml IV flush ONE (20:16)
[2021-06-16] MEDS ORDERED: LOSA50TA64 PO (20:25)
[2021-06-16] MEDS ORDERED: METO5TAB7 PO (20:25)
[2021-06-16] MEDS ORDERED: POTA20TA19 PO (20:25)
[2021-06-16] MEDS ORDERED: heparin 1,000unit/ml 10ml vial 10 ML ONE (20:32)
[2021-06-16 20:36] LABS: ALANINE AMINOTRANSFERASE 143 U/L (12-78); ALBUMIN/GLOBULIN RATIO 0.7 (1.1-1.5); ALKALINE PHOSPHATASE 169 IU/L (46-116); ASPARTATE AMINO TRANSFERASE 415 U/L (10-37); BILIRUBIN,DIRECT 0.4 MG/DL (0-0.3); BILIRUBIN,TOTAL 1.4 MG/DL (0.1-1.0); TOTAL PROTEIN 7.6 G/DL (6.4-8.2)
[2021-06-16] MEDS ORDERED: HYDROmorphone/PF 0.2 MG/ML SYRINGE IV PRN (21:00)
[2021-06-16] MEDS ORDERED: ringers solution, lacted 1,000 ML IV SCH (21:00)
[2021-06-16] MEDS ORDERED: morphine 2 MG/ML inj. syringe IV PRN (21:00)
[2021-06-16] MEDS ORDERED: NORepinephrine 8 MG in NS 250 ML BAG (32 mcg/ml) IV ONE (21:25)
[2021-06-16] MEDS ORDERED: sevoflurane 250ml liquid IH ONE (21:25)
[2021-06-16] MEDS ORDERED: fentaNYL /PF 50mcg/ml 5ml ampule ONE (21:26)
[2021-06-16 21:42] LABS: CREATINE KINASE 11922 U/L (39-308)
[2021-06-17] VITALS (22 sets, daily range): BP systolic 96–149; BP diastolic 8–96
[2021-06-17] MEDS ORDERED: iohexol 300 MG/1 ML 50ml polymer ONE (00:10)
[2021-06-17] MEDS ORDERED: midazolam 1 mg/ML 2ml injection IV ONE ×2 (01:15→03:55)
[2021-06-17] MEDS ORDERED: fentaNYL/PF 50MCG/1 ML 2ML syringe IV PRN (01:15)
[2021-06-17] MEDS ORDERED: LIDOcaine 2% (20mg/ml) 5ml vial ONE (01:28)
[2021-06-17] MEDS ORDERED: rocuronium 10mg/ml inj IV ONE (01:28)
[2021-06-17] MEDS ORDERED: phenylephrine 10mg/ml inj. ONE (01:28)
[2021-06-17] MEDS ORDERED: etomidate 2mg/ml inj. ONE (01:28)
[2021-06-17] MEDS ORDERED: albumin (Human) 5% 250ml 250 ML IV ONE (02:03)
[2021-06-17] MEDS ORDERED: midazolam 1 mg/ML 2ml injection ONE (02:06)
[2021-06-17 02:08] LABS: ABG BASE EXCESS -1.8 mmol/L (-2.0-2.0); ABG HCO3 23.8 mmol/L (22.0-26.0); ABG OXYGEN SATURATION 99.6 % (94-97); ABG PO2 (T) 320.7 mmHg (75.0-100.0); FCOHb 0.8 % (0.0-3.9); FMetHb 0.5 % (0.0-1.5); FO2Hb 98.3 % (94-97); PATIENT TEMPERATURE 36.2; PEEP 5 cm H2O; RESPIRATORY RATE 12 b/min; TIDAL VOLUME 600 mL; TOTAL HEMOGLOBIN 16.7 G/dl (14.0-18.0)
[2021-06-17 02:16] LABS: BASOPHILS # (AUTO) 0.1 X10'3 (0-0.2); BASOPHILS % (AUTO) 0.5 % (0-1); EOSINOPHILS # (AUTO) 0.2 X10'3 (0-0.9); EOSINOPHILS % (AUTO) 1.3 % (0-6); HEMATOCRIT 46.9 % (42.0-52.0); HEMOGLOBIN 15.7 g/dl (14.0-17.9); LYMPHOCYTES % (AUTO) 12.8 % (21-51); MEAN CORPUSCULAR HEMOGLOBIN 29.9 PG (27.0-31.0); MEAN CORPUSCULAR HGB CONC 33.4 g/dL (33.0-36.5); MEAN CORPUSCULAR VOLUME 89.5 FL (78-98); MEAN PLATELET VOLUME 8.7 FL (7.4-10.4); MONOCYTES # (AUTO) 1.1 X10'3 (0-0.9); MONOCYTES % (AUTO) 7.2 % (2-12); NEUTROPHILS # (AUTO) 11.9 X10'3 (1.8-7.7); NEUTROPHILS % (AUTO) 78.2 % (42-75); PLATELET COUNT 235 X10'3 (140-440); RED BLOOD COUNT 5.24 X10'6 (4.70-6.10); RED CELL DISTRIBUTION WIDTH 15.1 % (11.5-14.5); WHITE BLOOD COUNT 15.3 X10'3 (4.5-11.0)
[2021-06-17 02:34] LABS: ALANINE AMINOTRANSFERASE 108 U/L (12-78); ALBUMIN 2.5 G/DL (3.4-5.0); ALBUMIN/GLOBULIN RATIO 0.8 (1.1-1.5); ALKALINE PHOSPHATASE 115 IU/L (46-116); ANION GAP 1 (8-16); ASPARTATE AMINO TRANSFERASE 343 U/L (10-37); BILIRUBIN,TOTAL 1.4 MG/DL (0.1-1.0); BLOOD UREA NITROGEN 52 MG/DL (7-18); BUN/CREATININE RATIO 29.9 (5.4-32.0); CALCIUM 7.7 MG/DL (8.5-10.1); CHLORIDE 99 MMOL/L (99-107); CREATININE 1.74 MG/DL (0.60-1.10); GLUCOSE 173 MG/DL (70-104); POTASSIUM 3.4 MMOL/L (3.5-5.1); SODIUM 127 MMOL/L (135-145); TOTAL CARBON DIOXIDE 26.7 MMOL/L (24-32); TOTAL PROTEIN 5.6 G/DL (6.4-8.2); eGFR 40 ML/MIN
[2021-06-17 03:04] LABS: BILIRUBIN,DIRECT 0.6 MG/DL (0-0.3); CHOL/HDL RATIO 3.3 (0.00-4.99); CHOLESTEROL 104 MG/DL (0-200); HDL CHOLESTEROL 32 MG/DL (35-60); LDL CHOLESTEROL 65 MG/DL (50-100); TRIGLYCERIDES 81 MG/DL (20-135)
[2021-06-17 03:21] LABS: CKMB RELATIVE INDEX 1.8 RATIO (0-2.5); CREATINE KINASE 11205 U/L (39-308)
[2021-06-17] MEDS: FENTANYL-0.9 % NACL/PF 100 ML IV PRN ×2 (03:49→22:01)
[2021-06-17] MEDS: midazolam 100mg in NS 100ml 100 ML IV PRN ×2 (03:50→21:59)
[2021-06-17] MEDS: dextrose 5%-lactated ringers 1,000 ML IV SCH ×2 (03:51→11:30)
[2021-06-17] MEDS: ceFAZolin/D5W- 1GM premix 50 ML IV SCH ×2 (03:52→08:33)
[2021-06-17] MEDS: NORepinephrine 8mg/ 250ml NS 250 ML IV SCH (03:54)
[2021-06-17 04:30] LABS: PARTIAL THROMBOPLASTIN TIME 45 SECONDS (22-32)
[2021-06-17] MEDS ORDERED: magnesium 2GM in 50ml NS 50 ML IV ONE (04:30)
[2021-06-17] MEDS ORDERED: potassium Cl 10 mEq/100mL bag IV ONE (04:30)
[2021-06-17] MEDS: heparin 25,000 UNIT/250ml bag 250 ML IV SCH ×3 (04:52→22:40)
--- NOTE | 2021-06-17 06:30 | NUR ---
Patient in room ICU 2045. I have received report from SUSIE Joy and had the opportunity to ask questions and assume patient care.
[2021-06-17] MEDS: pantoprazole 40 MG vial IV SCH (08:33)
[2021-06-17 09:55] LABS: PARTIAL THROMBOPLASTIN TIME 44 SECONDS (22-32)
[2021-06-17 10:11] LABS: TROPONIN I 0.14 NG/ML (0.0-0.05)
[2021-06-17] MEDS: heparin 10,000 units/1 ML INJ IV PRN ×2 (10:22→17:45)
[2021-06-17 10:42] LABS: CREATINE KINASE 14324 U/L (39-308)
--- NOTE | 2021-06-17 11:49 | NUR ---
Initial: Pt admitted w/ R leg pain and loss of sensation, underwent thrombectomy w/ fasciotomy 06/16. Pt currently intubated and sedated and may go back to OR per RN. Pt currently NPO receiving D5LR at 100ml/hr providing 408kcals/day. Limited nutrition intervention at this time given pt's status, will continue to monitor and make recommendations as appropriate. Recs: 1. Upon extubation, advance diet to Heart Healthy as tolerated 2. Bowel care per rx 3. Scaled wt this admit, weekly wts thereafter Addendum: 06/17/21 at [address] Amended: Links added.
[2021-06-17] MEDS ORDERED: dextrose ORAL solution 15 GM/59 ML bottle PO PRN ×2 (15:05)
[2021-06-17] MEDS ORDERED: MESSAGE TO PHARMACY PO ONE (15:05)
[2021-06-17] MEDS ORDERED: glucagon, human recombinant 1mg kit SUBCUT PRN (15:05)
[2021-06-17] MEDS ORDERED: dextrose 50%-water 50ml dispensing syringe IV PRN ×2 (15:05)
[2021-06-17] MEDS: dextrose 5%-normal saline 1,000 ML IV SCH ×2 (16:00→18:12)
[2021-06-17 16:07] LABS: HEMOGLOBIN A1C 11.1 % (4.5-6.2)
--- NOTE | 2021-06-17 18:25 | NUR ---
Problems reprioritized. Patient report given, questions answered & plan of care reviewed with SUSIE Joy.
[2021-06-17] MEDS: docusate sodium 100mg/10ml UD cup PO SCH (20:24)
[2021-06-17] MEDS: insulin Lispro (HumaLOG) vial - multi-dose SQ SCH (20:28)
[2021-06-17] MEDS: insulin glargine (Lantus) pen - multi-dose SQ SCH (20:29)
[2021-06-17] MEDS: heparin 1,000 UNITS/NS 500ml 500 ML IV SCH (20:38)
[2021-06-17 20:48] LABS: PARTIAL THROMBOPLASTIN TIME > 139 SECONDS (22-32)
[2021-06-17 22:55] LABS: PARTIAL THROMBOPLASTIN TIME 69 SECONDS (22-32)
[2021-06-18] VITALS (24 sets, daily range): BP systolic 103–140; BP diastolic 56–79
[2021-06-18 00:46] LABS: CREATINE KINASE 13301 U/L (39-308)
[2021-06-18] MEDS: mineral oil/petrolatum ophthal oint EACHEYE SCH ×4 (02:00→20:26)
[2021-06-18] MEDS: insulin Lispro (HumaLOG) vial - multi-dose SQ SCH ×4 (02:43→21:37)
[2021-06-18 03:40] LABS: ABG BASE EXCESS 1.6 mmol/L (-2.0-2.0); ABG OXYGEN SATURATION 93.4 % (94-97); ABG PCO2 (T) 40.5 mmHg (35.0-48.0); ABG PO2 (T) 66.4 mmHg (75.0-100.0); FCOHb 1.3 % (0.0-3.9); FMetHb 0.2 % (0.0-1.5); PEEP 5 cm H2O; RESPIRATORY RATE 12 b/min; TIDAL VOLUME 600 mL; TOTAL HEMOGLOBIN 15.3 G/dl (14.0-18.0)
[2021-06-18 04:03] LABS: BASOPHILS % (AUTO) 0.2 % (0-1); EOSINOPHILS # (AUTO) 0.1 X10'3 (0-0.9); EOSINOPHILS % (AUTO) 0.3 % (0-6); HEMATOCRIT 42.5 % (42.0-52.0); HEMOGLOBIN 14.2 g/dl (14.0-17.9); LYMPHOCYTES # (AUTO) 1.6 X10'3 (1.1-4.8); LYMPHOCYTES % (AUTO) 9.7 % (21-51); MEAN CORPUSCULAR HEMOGLOBIN 29.9 PG (27.0-31.0); MEAN CORPUSCULAR HGB CONC 33.4 g/dL (33.0-36.5); MEAN CORPUSCULAR VOLUME 89.4 FL (78-98); MEAN PLATELET VOLUME 8.5 FL (7.4-10.4); MONOCYTES # (AUTO) 1.5 X10'3 (0-0.9); MONOCYTES % (AUTO) 9.3 % (2-12); NEUTROPHILS # (AUTO) 13.1 X10'3 (1.8-7.7); NEUTROPHILS % (AUTO) 80.5 % (42-75); PLATELET COUNT 269 X10'3 (140-440); RED BLOOD COUNT 4.75 X10'6 (4.70-6.10); WHITE BLOOD COUNT 16.3 X10'3 (4.5-11.0)
[2021-06-18 04:11] LABS: PARTIAL THROMBOPLASTIN TIME 40 SECONDS (22-32)
[2021-06-18 04:25] LABS: ALBUMIN 1.8 G/DL (3.4-5.0); ANION GAP 8 (8-16); BLOOD UREA NITROGEN 39 MG/DL (7-18); BUN/CREATININE RATIO 21.3 (5.4-32.0); CALCIUM 7.6 MG/DL (8.5-10.1); CHLORIDE 110 MMOL/L (99-107); CREATININE 1.83 MG/DL (0.60-1.10); GLUCOSE 185 MG/DL (70-104); MAGNESIUM 2.8 MG/DL (1.5-2.4); POTASSIUM 3.7 MMOL/L (3.5-5.1); SODIUM 144 MMOL/L (135-145); TOTAL CARBON DIOXIDE 26.1 MMOL/L (24-32); eGFR 38 ML/MIN
[2021-06-18] MEDS: heparin 25,000 UNIT/250ml bag 250 ML IV SCH ×3 (04:26→19:49)
[2021-06-18 04:41] LABS: CREATINE KINASE 12124 U/L (39-308)
[2021-06-18] MEDS: NORepinephrine 8mg/ 250ml NS 250 ML IV SCH ×2 (04:42→14:16)
[2021-06-18] MEDS: dextrose 5%-lactated ringers 1,000 ML IV SCH ×2 (07:30→17:30)
[2021-06-18] MEDS: dextrose 5%-normal saline 1,000 ML IV SCH ×4 (08:00→21:50)
[2021-06-18] MEDS: docusate sodium 100mg/10ml UD cup PO SCH ×2 (08:45→21:50)
[2021-06-18] MEDS: pantoprazole 40 MG vial IV SCH (08:45)
[2021-06-18] MEDS ORDERED: pneumococcal 23-VAL P-sac vacc 25 mcg/0.5ml vial IMVAC ONE (09:00)
[2021-06-18] MEDS ORDERED: FLU VACC QS2021-22(6MOS UP)/PF 60 MCG/0.5 ML SYRINGE IM ONE (09:00)
[2021-06-18] MEDS: heparin 1,000 UNITS/NS 500ml 500 ML IV SCH ×2 (10:18→22:34)
[2021-06-18 11:11] LABS: PARTIAL THROMBOPLASTIN TIME 68 SECONDS (22-32)
--- NOTE | 2021-06-18 11:56 | NUR ---
DM consult: A1C 11.1. Pt remains intubated, would benefit from education once more stable prior to discharge. Addendum: 06/18/21 at [address] Amended: Links added.
[2021-06-18 17:19] LABS: PARTIAL THROMBOPLASTIN TIME 101 SECONDS (22-32)
[2021-06-18 20:19] LABS: PARTIAL THROMBOPLASTIN TIME 39 SECONDS (22-32)
[2021-06-18] MEDS: insulin glargine (Lantus) pen - multi-dose SQ SCH (21:39)
[2021-06-19] VITALS (23 sets, daily range): BP systolic 102–174; BP diastolic 64–102
[2021-06-19 02:06] LABS: BASOPHILS # (AUTO) 0.1 X10'3 (0-0.2); BASOPHILS % (AUTO) 0.4 % (0-1); EOSINOPHILS # (AUTO) 0.1 X10'3 (0-0.9); EOSINOPHILS % (AUTO) 0.4 % (0-6); HEMATOCRIT 37.2 % (42.0-52.0); HEMOGLOBIN 12.5 g/dl (14.0-17.9); LYMPHOCYTES # (AUTO) 1.4 X10'3 (1.1-4.8); LYMPHOCYTES % (AUTO) 10.1 % (21-51); MEAN CORPUSCULAR HEMOGLOBIN 30.1 PG (27.0-31.0); MEAN CORPUSCULAR HGB CONC 33.6 g/dL (33.0-36.5); MEAN CORPUSCULAR VOLUME 89.5 FL (78-98); MEAN PLATELET VOLUME 8.4 FL (7.4-10.4); MONOCYTES # (AUTO) 1.3 X10'3 (0-0.9); MONOCYTES % (AUTO) 9.3 % (2-12); NEUTROPHILS # (AUTO) 11.4 X10'3 (1.8-7.7); NEUTROPHILS % (AUTO) 79.8 % (42-75); PLATELET COUNT 241 X10'3 (140-440); RED BLOOD COUNT 4.16 X10'6 (4.70-6.10); RED CELL DISTRIBUTION WIDTH 15.3 % (11.5-14.5); WHITE BLOOD COUNT 14.3 X10'3 (4.5-11.0)
[2021-06-19] MEDS: heparin 25,000 UNIT/250ml bag 250 ML IV SCH ×2 (02:12→02:25)
[2021-06-19 02:14] LABS: ALBUMIN 1.5 G/DL (3.4-5.0); ANION GAP 9 (8-16); BLOOD UREA NITROGEN 27 MG/DL (7-18); BUN/CREATININE RATIO 16.5 (5.4-32.0); CALCIUM 7.8 MG/DL (8.5-10.1); CHLORIDE 114 MMOL/L (99-107); CREATININE 1.64 MG/DL (0.60-1.10); GLUCOSE 158 MG/DL (70-104); MAGNESIUM 2.4 MG/DL (1.5-2.4); POTASSIUM 3.2 MMOL/L (3.5-5.1); SODIUM 148 MMOL/L (135-145); TOTAL CARBON DIOXIDE 25.3 MMOL/L (24-32); eGFR 43 ML/MIN
[2021-06-19 02:16] LABS: PARTIAL THROMBOPLASTIN TIME 62 SECONDS (22-32)
[2021-06-19] MEDS: mineral oil/petrolatum ophthal oint EACHEYE SCH ×4 (02:26→20:19)
[2021-06-19] MEDS: insulin Lispro (HumaLOG) vial - multi-dose SQ SCH (02:53)
[2021-06-19 03:28] LABS: ABG BASE EXCESS -1.5 mmol/L (-2.0-2.0); ABG HCO3 22.6 mmol/L (22.0-26.0); ABG PCO2 (T) 37.3 mmHg (35.0-48.0); ABG PO2 (T) 67.3 mmHg (75.0-100.0); FCOHb 0.7 % (0.0-3.9); FMetHb 0.3 % (0.0-1.5); FO2Hb 91.1 % (94-97); PATIENT TEMPERATURE 37.8; PEEP 5 cm H2O; TOTAL HEMOGLOBIN 13.5 G/dl (14.0-18.0)
[2021-06-19 07:30] LABS: CREATINE KINASE 6795 U/L (39-308)
[2021-06-19] MEDS: pantoprazole 40 MG vial IV SCH (08:00)
[2021-06-19] MEDS: docusate sodium 100mg/10ml UD cup PO SCH ×2 (08:00→20:00)
[2021-06-19 08:44] LABS: PARTIAL THROMBOPLASTIN TIME 50 SECONDS (22-32)
[2021-06-19] MEDS: heparin 1,000 UNITS/NS 500ml 500 ML IV SCH (09:25)
[2021-06-19] MEDS: dextrose 5%-normal saline 1,000 ML IV SCH ×2 (12:00→20:00)
[2021-06-19] MEDS: morphine 2 MG/ML inj. syringe IV PRN (19:39)
[2021-06-19 21:00] LABS: PARTIAL THROMBOPLASTIN TIME 38 SECONDS (22-32)
[2021-06-19] MEDS: insulin glargine (Lantus) pen - multi-dose SQ SCH (21:00)
[2021-06-19] MEDS: hydrALAZINE 20mg/ml inj. IV PRN (22:29)
[2021-06-20] VITALS (17 sets, daily range): BP systolic 128–163; BP diastolic 69–117
[2021-06-20] MEDS: heparin 25,000 UNIT/250ml bag 250 ML IV SCH (00:30)
[2021-06-20] MEDS: mineral oil/petrolatum ophthal oint EACHEYE SCH ×3 (02:00→14:00)
[2021-06-20] MEDS: hydrALAZINE 20mg/ml inj. IV PRN (03:15)
[2021-06-20] MEDS: morphine 2 MG/ML inj. syringe IV PRN (03:16)
[2021-06-20 04:27] LABS: ALBUMIN 1.7 G/DL (3.4-5.0); ANION GAP 8 (8-16); BLOOD UREA NITROGEN 23 MG/DL (7-18); CALCIUM 8.3 MG/DL (8.5-10.1); CHLORIDE 113 MMOL/L (99-107); CREATININE 1.44 MG/DL (0.60-1.10); GLUCOSE 107 MG/DL (70-104); MAGNESIUM 2.1 MG/DL (1.5-2.4); POTASSIUM 3.1 MMOL/L (3.5-5.1); SODIUM 148 MMOL/L (135-145); TOTAL CARBON DIOXIDE 26.7 MMOL/L (24-32); eGFR 50 ML/MIN
[2021-06-20 04:35] LABS: BASOPHILS # (AUTO) 0.1 X10'3 (0-0.2); BASOPHILS % (AUTO) 0.4 % (0-1); EOSINOPHILS # (AUTO) 0.2 X10'3 (0-0.9); EOSINOPHILS % (AUTO) 1.1 % (0-6); HEMATOCRIT 39.1 % (42.0-52.0); HEMOGLOBIN 12.6 g/dl (14.0-17.9); LYMPHOCYTES # (AUTO) 1.3 X10'3 (1.1-4.8); LYMPHOCYTES % (AUTO) 8.9 % (21-51); MEAN CORPUSCULAR HEMOGLOBIN 29.6 PG (27.0-31.0); MEAN CORPUSCULAR HGB CONC 32.2 g/dL (33.0-36.5); MEAN CORPUSCULAR VOLUME 91.9 FL (78-98); MEAN PLATELET VOLUME 8.7 FL (7.4-10.4); MONOCYTES # (AUTO) 1.1 X10'3 (0-0.9); MONOCYTES % (AUTO) 7.8 % (2-12); NEUTROPHILS # (AUTO) 11.7 X10'3 (1.8-7.7); NEUTROPHILS % (AUTO) 81.8 % (42-75); PLATELET COUNT 276 X10'3 (140-440); RED BLOOD COUNT 4.25 X10'6 (4.70-6.10); RED CELL DISTRIBUTION WIDTH 15.1 % (11.5-14.5); WHITE BLOOD COUNT 14.3 X10'3 (4.5-11.0)
[2021-06-20] MEDS: dextrose 5%-normal saline 1,000 ML IV SCH ×3 (05:51→21:33)
[2021-06-20 06:57] LABS: PARTIAL THROMBOPLASTIN TIME 36 SECONDS (22-32)
[2021-06-20] MEDS: docusate sodium 100mg/10ml UD cup PO SCH ×2 (08:00→20:53)
[2021-06-20] MEDS: heparin 10,000 units/1 ML INJ IV PRN (08:38)
[2021-06-20] MEDS: pantoprazole 40 MG vial IV SCH (09:01)
[2021-06-20] MEDS ORDERED: furosemide 40mg/4ml inj IV ONE (09:25)
[2021-06-20] MEDS ORDERED: magnesium 4gm in 100ml NS 100 ML IV PRN (11:45)
[2021-06-20] MEDS ORDERED: sodium phosphate inj. 30 MMOL in dextrose 5%-water 250 ML IV PRN (11:45)
[2021-06-20] MEDS ORDERED: Neutra Phos packet PO PRN (11:45)
[2021-06-20] MEDS ORDERED: magnesium Cl slow-release 64mg tablet PO PRN (11:45)
[2021-06-20] MEDS ORDERED: potassium Cl 40MEQ/1/2NS 520ml 520 ML IV PRN (11:45)
[2021-06-20] MEDS ORDERED: sodium phosphate inj. 15 MMOL in dextrose 5%-water 250 ML IV PRN (11:45)
[2021-06-20] MEDS ORDERED: potassium Cl 40MEQ/250ML bag 270 ML IV PRN (11:45)
[2021-06-20] MEDS ORDERED: magnesium 2GM in 50ml NS 50 ML IV PRN (11:45)
[2021-06-20] MEDS: morphine 4 MG/ML inj SYRINge IV PRN (14:53)
--- NOTE | 2021-06-20 15:26 | NUR ---
Reassessment: Pt extubated yesterday advanced to full liquids this AM per PO hx pending. 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 Pt made aware of pt new DX during rounds however pending MD review w/ pt at this time. Would benefit from thorough DM ed post-op prior to discharge. Glu 133 receiving D5/NS at 250ml/hr providing 1020 kcals/day; would benefit from weaning as medically indicated post-op given DM and active PO diet. No BM since admit day 4; routine colace available however pt refusing per EMR. Will continue to monitor. Recs: 1. advance diet as medically indicated to carb controlled/heart healthy 2. Consider Balbir smoothie ONS post-op given wound healing needs; pending PO hx 3. routine bowel care 4. Scaled wt this admit, weekly wts thereafter 5. High protein and DM educations prior to discharge. New DM DX A1C 11.1 % pending official DM DX and review w/ pt by . Addendum: 06/20/21 at [address] Amended: Links added.
[2021-06-20] MEDS ORDERED: rivaroxaban 20mg tablet PO ONE (15:35)
--- NOTE | 2021-06-20 16:43 | NUR ---
PT transferred from ICU to 13B here. Pt asleep at this time with the at bedside. VSS on 2L NC. Wound vac @75mmHg continuous per MD order. D5 NS @70 infusing. RLE pulses by doppler.
--- NOTE | 2021-06-20 18:11 | NUR ---
Report given to shift nurse manager RN. Pt asleep. VSS. at bedside.
[2021-06-20] MEDS: furosemide 20MG tablet PO SCH (20:52)
[2021-06-20] MEDS: carVEDilol 12.5mg tablet PO SCH (20:52)
[2021-06-21] MEDS: insulin glargine (Lantus) pen - multi-dose SQ SCH ×2 (01:34→21:02)
[2021-06-21 03:00] VITALS: BP 116/68
[2021-06-21 06:00] VITALS: BP 114/69
[2021-06-21 07:04] LABS: BASOPHILS % (AUTO) 0.3 % (0-1); EOSINOPHILS # (AUTO) 0.2 X10'3 (0-0.9); EOSINOPHILS % (AUTO) 1.5 % (0-6); HEMOGLOBIN 12.8 g/dl (14.0-17.9); LYMPHOCYTES % (AUTO) 7.7 % (21-51); MEAN CORPUSCULAR HEMOGLOBIN 29.8 PG (27.0-31.0); MEAN CORPUSCULAR HGB CONC 32.7 g/dL (33.0-36.5); MEAN PLATELET VOLUME 8.4 FL (7.4-10.4); MONOCYTES # (AUTO) 1.1 X10'3 (0-0.9); MONOCYTES % (AUTO) 8.4 % (2-12); NEUTROPHILS # (AUTO) 10.9 X10'3 (1.8-7.7); NEUTROPHILS % (AUTO) 82.1 % (42-75); PLATELET COUNT 282 X10'3 (140-440); RED BLOOD COUNT 4.29 X10'6 (4.70-6.10); RED CELL DISTRIBUTION WIDTH 15.1 % (11.5-14.5); WHITE BLOOD COUNT 13.3 X10'3 (4.5-11.0)
[2021-06-21 07:35] LABS: ALBUMIN 1.9 G/DL (3.4-5.0); ANION GAP 9 (8-16); BLOOD UREA NITROGEN 24 MG/DL (7-18); BUN/CREATININE RATIO 15.3 (5.4-32.0); CALCIUM 8.7 MG/DL (8.5-10.1); CHLORIDE 107 MMOL/L (99-107); CREATININE 1.57 MG/DL (0.60-1.10); GLUCOSE 157 MG/DL (70-104); POTASSIUM 3.3 MMOL/L (3.5-5.1); SODIUM 146 MMOL/L (135-145); TOTAL CARBON DIOXIDE 30.3 MMOL/L (24-32); eGFR 45 ML/MIN
[2021-06-21] MEDS: metolazone 2.5mg tablet PO SCH (08:00)
[2021-06-21] MEDS: K and/or MAG REPLACEMENT MC SCH (08:00)
--- NOTE | 2021-06-21 08:37 | NUR ---
To Pharmacy: Unable to locate Pt insulin vial and metolazone tablets in specific meds bin. Please send shannan.
[2021-06-21] MEDS: carVEDilol 12.5mg tablet PO SCH ×2 (08:48→19:14)
[2021-06-21] MEDS: potassium Cl 20 mEq SR tablet PO SCH (08:48)
[2021-06-21] MEDS: furosemide 20MG tablet PO SCH ×2 (08:48→19:15)
[2021-06-21] MEDS: docusate sodium 100mg/10ml UD cup PO SCH ×2 (08:48→19:14)
[2021-06-21] MEDS: pantoprazole 40 MG vial IV SCH (08:48)
[2021-06-21 11:00] VITALS: BP 106/80
[2021-06-21] MEDS: dextrose 5%-normal saline 1,000 ML IV SCH (11:28)
--- NOTE | 2021-06-21 11:53 | NUR ---
Unable to given Insulin dose this am due to no vial being available. Called ICU to see if the vial was there from transfer yesterday evening. No insulin vial in cassette according to Wilma RICHARDS from ICU.
[2021-06-21] MEDS: potassium Cl 20 mEq SR tablet PO PRN (14:17)
[2021-06-21] MEDS: insulin Lispro (HumaLOG) vial - multi-dose SQ SCH (14:21)
[2021-06-21 15:00] VITALS: BP 124/71
[2021-06-21] MEDS: rivaroxaban 20mg tablet PO SCH (17:48)
[2021-06-21] MEDS: morphine 4 MG/ML inj SYRINge IV PRN (17:49)
[2021-06-22] MEDS: dextrose 5%-normal saline 1,000 ML IV SCH ×2 (02:17→21:31)
[2021-06-22 07:00] VITALS: BP 112/60
[2021-06-22 07:39] LABS: PHOSPHORUS 3.6 MG/DL (2.3-4.5)
[2021-06-22] MEDS: docusate sodium 100mg/10ml UD cup PO SCH ×2 (08:00→21:06)
[2021-06-22] MEDS: K and/or MAG REPLACEMENT MC SCH (08:00)
[2021-06-22] MEDS: metolazone 2.5mg tablet PO SCH (09:30)
[2021-06-22] MEDS: potassium Cl 20 mEq SR tablet PO SCH ×2 (09:31→21:24)
[2021-06-22] MEDS: carVEDilol 12.5mg tablet PO SCH ×2 (09:31→21:06)
[2021-06-22] MEDS: furosemide 20MG tablet PO SCH ×2 (09:32→21:06)
[2021-06-22] MEDS: pantoprazole 40mg Tablet.DR PO SCH (09:32)
[2021-06-22] MEDS: morphine 4 MG/ML inj SYRINge IV PRN ×2 (09:40→15:45)
[2021-06-22 11:00] VITALS: BP 111/71
[2021-06-22] MEDS: potassium Cl 20 mEq SR tablet PO PRN (13:33)
[2021-06-22] MEDS: insulin Lispro (HumaLOG) vial - multi-dose SQ SCH (13:35)
[2021-06-22 15:00] VITALS: BP 105/77
--- NOTE | 2021-06-22 18:38 | NUR ---
Problems reprioritized. Patient report given, questions answered & plan of care reviewed with Ej RICHARDS.
[2021-06-22 20:00] VITALS: BP 116/96
[2021-06-22] MEDS: rivaroxaban 20mg tablet PO SCH (21:19)
[2021-06-22] MEDS: insulin glargine (Lantus) pen - multi-dose SQ SCH (21:33)
[2021-06-23] VITALS (7 sets, daily range): BP systolic 79–129; BP diastolic 59–96
[2021-06-23] MEDS: morphine 4 MG/ML inj SYRINge IV PRN ×3 (00:01→10:59)
[2021-06-23] MEDS: dextrose 5%-normal saline 1,000 ML IV SCH ×2 (06:45→11:50)
--- NOTE | 2021-06-23 07:00 | NUR ---
Patient in room PCU 3013. I have received report from Chula RICHARDS and had the opportunity to ask questions and assume patient care.
--- NOTE | 2021-06-23 07:36 | NUR ---
PAGER ID: [phone] MESSAGE: re: [id number], David Kennedy Did you want any labs ordered for this a.m.? Thank you, uriel [phone]
[2021-06-23] MEDS: K and/or MAG REPLACEMENT MC SCH (08:00)
--- NOTE | 2021-06-23 08:02 | NUR ---
phoned Pharmacy, Pt's Zaroxolyn for 0800 is not on unit, they will prepare and send up. Will continue to monitor.
[2021-06-23] MEDS: furosemide 20MG tablet PO SCH ×2 (08:10→20:18)
[2021-06-23] MEDS: pantoprazole 40mg Tablet.DR PO SCH (08:11)
[2021-06-23] MEDS: carVEDilol 12.5mg tablet PO SCH ×2 (08:11→20:18)
[2021-06-23] MEDS: docusate sodium 100mg/10ml UD cup PO SCH ×2 (08:12→20:18)
[2021-06-23] MEDS: metolazone 2.5mg tablet PO SCH (09:11)
[2021-06-23 09:16] LABS: BASOPHILS % (AUTO) 0.2 % (0-1); EOSINOPHILS # (AUTO) 0.2 X10'3 (0-0.9); EOSINOPHILS % (AUTO) 1.8 % (0-6); HEMATOCRIT 39.2 % (42.0-52.0); HEMOGLOBIN 12.9 g/dl (14.0-17.9); LYMPHOCYTES % (AUTO) 7.2 % (21-51); MEAN CORPUSCULAR HEMOGLOBIN 29.6 PG (27.0-31.0); MEAN CORPUSCULAR HGB CONC 32.9 g/dL (33.0-36.5); MEAN PLATELET VOLUME 8.3 FL (7.4-10.4); MONOCYTES # (AUTO) 1.2 X10'3 (0-0.9); MONOCYTES % (AUTO) 8.2 % (2-12); NEUTROPHILS # (AUTO) 11.7 X10'3 (1.8-7.7); NEUTROPHILS % (AUTO) 82.6 % (42-75); PLATELET COUNT 326 X10'3 (140-440); RED BLOOD COUNT 4.35 X10'6 (4.70-6.10); WHITE BLOOD COUNT 14.1 X10'3 (4.5-11.0)
[2021-06-23 09:29] LABS: ALANINE AMINOTRANSFERASE 72 U/L (12-78); ALBUMIN 1.8 G/DL (3.4-5.0); ALBUMIN/GLOBULIN RATIO 0.4 (1.1-1.5); ALKALINE PHOSPHATASE 144 IU/L (46-116); ANION GAP 7 (8-16); ASPARTATE AMINO TRANSFERASE 107 U/L (10-37); BILIRUBIN,TOTAL 1.5 MG/DL (0.1-1.0); BLOOD UREA NITROGEN 23 MG/DL (7-18); BUN/CREATININE RATIO 17.7 (5.4-32.0); CALCIUM 8.4 MG/DL (8.5-10.1); CHLORIDE 97 MMOL/L (99-107); GLUCOSE 169 MG/DL (70-104); PHOSPHORUS 2.9 MG/DL (2.3-4.5); SODIUM 138 MMOL/L (135-145); TOTAL CARBON DIOXIDE 34.3 MMOL/L (24-32); TOTAL PROTEIN 6.2 G/DL (6.4-8.2); eGFR 56 ML/MIN
--- NOTE | 2021-06-23 10:08 | NUR ---
PAGER ID: [phone] MESSAGE: re: room 3013B, David Kennedy Critical K+ is 3.0. Will replace per protocol. Thank you, Maira [phone] Will continue to monitor.
[2021-06-23] MEDS: potassium Cl 20 mEq SR tablet PO PRN ×2 (10:36→14:40)
[2021-06-23] MEDS: insulin Lispro (HumaLOG) vial - multi-dose SQ SCH ×2 (10:44→14:34)
[2021-06-23 11:22] LABS: MAGNESIUM 1.7 MG/DL (1.5-2.4)
--- NOTE | 2021-06-23 12:13 | NUR ---
PAGER ID: [phone] MESSAGE: re: room 3013B, Brent David 1) May I d/c central line, pt has PIV access. 2) Need order for PO pain meds? (only have Tylenol and MS) . 3) May I advance diet from fulls to CC/HH diet? thank you, Maira U [phone] Will continue to monitor. received phone call from Dr Vasquez, orders received.
--- NOTE | 2021-06-23 13:18 | NUR ---
Lunchtray held due to Wound Care at bedside with sterile field. Pt now eating lunch. Will continue to monitor.
--- NOTE | 2021-06-23 14:30 | NUR ---
RIGHT IJ D/C'D PER MD ORDERS AFTER INSTUCTION GIVEN TO PATIENT AND PATIENT VERBALIZING UNDERSTANDING. PT TOLERATED PROCEDURE WELL. PRESSURE, THEN PRESSURE DRESSING APPLIED. WILL CONTINUE TO MONITOR.
[2021-06-23] MEDS: HYDROcodone/acetaminophen 10/325mg tab PO PRN ×2 (14:40→21:59)
--- NOTE | 2021-06-23 16:44 | NUR ---
PHONED PHARMACY, STILL WAITING FOR ANCEF IV DUE AT 1600. PHARMACY WILL SEND UP TO UNIT. WILL CONTINUE TO MONITOR.
[2021-06-23] MEDS: ceFAZolin/D5W- 1GM premix 50 ML IV SCH (17:43)
[2021-06-23] MEDS: rivaroxaban 20mg tablet PO SCH (17:44)
--- NOTE | 2021-06-23 18:15 | NUR ---
Problems reprioritized. Patient report given, questions answered & plan of care reviewed with Glenis RICHARDS.
--- NOTE | 2021-06-23 18:30 | NUR ---
Patient in room PCU 3013. I have received report from Maira RICHARDS and had the opportunity to ask questions and assume patient care.
[2021-06-23] MEDS: insulin glargine (Lantus) pen - multi-dose SQ SCH (22:43)
[2021-06-24] MEDS: ceFAZolin/D5W- 1GM premix 50 ML IV SCH ×3 (00:01→15:45)
[2021-06-24 02:00] VITALS: BP 129/69
[2021-06-24] MEDS: HYDROcodone/acetaminophen 10/325mg tab PO PRN ×4 (02:28→21:46)
[2021-06-24 06:00] VITALS: BP 135/92
--- NOTE | 2021-06-24 06:30 | NUR ---
Patient in room PCU 3013. I have received report from Lizabeth RICHARDS and had the opportunity to ask questions and assume patient care.
--- NOTE | 2021-06-24 06:34 | NUR ---
Problems reprioritized. Patient report given, questions answered & plan of care reviewed with Rosina RICHARDS & Desi RICHARDS.
[2021-06-24] MEDS: carVEDilol 12.5mg tablet PO SCH ×2 (08:36→20:46)
[2021-06-24] MEDS: docusate sodium 100mg/10ml UD cup PO SCH ×2 (08:36→20:46)
[2021-06-24] MEDS: potassium Cl 20 mEq SR tablet PO SCH (08:36)
[2021-06-24] MEDS: metolazone 2.5mg tablet PO SCH (08:36)
[2021-06-24] MEDS: furosemide 20MG tablet PO SCH ×2 (08:37→20:45)
[2021-06-24] MEDS: pantoprazole 40mg Tablet.DR PO SCH (08:45)
[2021-06-24 09:10] LABS: BASOPHILS % (AUTO) 0.4 % (0-1); EOSINOPHILS # (AUTO) 0.2 X10'3 (0-0.9); EOSINOPHILS % (AUTO) 1.7 % (0-6); HEMATOCRIT 38.7 % (42.0-52.0); HEMOGLOBIN 13.1 g/dl (14.0-17.9); LYMPHOCYTES # (AUTO) 1.3 X10'3 (1.1-4.8); LYMPHOCYTES % (AUTO) 9.6 % (21-51); MEAN CORPUSCULAR HGB CONC 33.7 g/dL (33.0-36.5); MEAN PLATELET VOLUME 8.3 FL (7.4-10.4); MONOCYTES # (AUTO) 1.1 X10'3 (0-0.9); MONOCYTES % (AUTO) 8.1 % (2-12); NEUTROPHILS % (AUTO) 80.2 % (42-75); PLATELET COUNT 352 X10'3 (140-440); RED BLOOD COUNT 4.35 X10'6 (4.70-6.10); RED CELL DISTRIBUTION WIDTH 14.8 % (11.5-14.5); WHITE BLOOD COUNT 13.7 X10'3 (4.5-11.0)
[2021-06-24 09:50] LABS: ALANINE AMINOTRANSFERASE 67 U/L (12-78); ALBUMIN/GLOBULIN RATIO 0.5 (1.1-1.5); ALKALINE PHOSPHATASE 138 IU/L (46-116); ANION GAP 4 (8-16); ASPARTATE AMINO TRANSFERASE 93 U/L (10-37); BILIRUBIN,TOTAL 1.5 MG/DL (0.1-1.0); BLOOD UREA NITROGEN 25 MG/DL (7-18); BUN/CREATININE RATIO 17.7 (5.4-32.0); CALCIUM 8.8 MG/DL (8.5-10.1); CHLORIDE 96 MMOL/L (99-107); CREATININE 1.41 MG/DL (0.60-1.10); GLUCOSE 142 MG/DL (70-104); SODIUM 137 MMOL/L (135-145); TOTAL CARBON DIOXIDE 36.6 MMOL/L (24-32); TOTAL PROTEIN 6.3 G/DL (6.4-8.2); eGFR 51 ML/MIN
[2021-06-24 10:02] LABS: POTASSIUM 2.8 MMOL/L (3.5-5.1)
--- NOTE | 2021-06-24 10:11 | NUR ---
Paged Dr. Vasquez PAGER ID: [phone] MESSAGE: [phone] David Kennedy. Critical lab value potassium 2.8. Replacing per protocol. Tamela Almaguer
[2021-06-24] MEDS: potassium Cl 20 mEq SR tablet PO PRN ×3 (10:19→17:41)
[2021-06-24 11:00] VITALS: BP 104/62
[2021-06-24] MEDS: dextrose 5%-normal saline 1,000 ML IV SCH (11:21)
--- NOTE | 2021-06-24 13:39 | NUR ---
Paged Dr. Vasquez regarding diabetes education PAGER ID: [phone] MESSAGE: [phone], Brent Hernandez. Have you educated the pt on his new onset of diabetes? Dietary wants to know. ANDREEA Weeks
--- NOTE | 2021-06-24 14:06 | NUR ---
Reassessment: Pt w/ moderately low PO intake, avg 45% x 7 meals on MM5/CCHO/Heart Healthy diet w/ NTL. Pt may benefit from Balbir smoothie at this time to aid w/ wound healing and extra energy. LBM 10/2 receiving routine colace. Pt also receiving D5NS at 70ml/hr providing 285kcals/d. Provided pt w/ written and verbal high protein diet education w/ RD contact info attached. Pending MD review w/ pt about new onset DM at this time. Will continue to monitor. Recs: 1. Continue MM5/CCHO/Heart Healthy NTL as tolerated 2. Balbir smoothie BID BD 3. routine bowel care 4. Scaled wt this admit, weekly wts thereafter 5. DM educations prior to discharge. New DM DX A1C 11.1 % pending official DM DX and review w/ pt by . Addendum: 06/24/21 at [address] Amended: Links added. Addendum: 06/24/21 at [address] Correction: Pt on pudding thickened liquids. D/w RN if Pt needs ST eval to continue w/ MM5 or pudding thick liquids
[2021-06-24 15:00] VITALS: BP 122/90
--- NOTE | 2021-06-24 16:27 | NUR ---
Pager Pedro regarding 14 beat vtach PAGER ID: [phone] MESSAGE: [phone] Brent Hernandez, Pt had 14 beat of vtach and is asymptomatic. ANDREEA Weeks.
[2021-06-24] MEDS ORDERED: magnesium 2GM in 50ml NS 50 ML IV ONE (16:35)
[2021-06-24] MEDS: JUVEN Smoothie Arginine/Glut./Ca2+Bmb (Juven 19.3pkt) 240ml cup PO SCH (17:30)
[2021-06-24] MEDS: rivaroxaban 20mg tablet PO SCH (17:42)
[2021-06-24 18:00] VITALS: BP 95/74
--- NOTE | 2021-06-24 18:36 | NUR ---
Problems reprioritized. Patient report given, questions answered & plan of care reviewed with Rocco RICHARDS. Patient stable at transfer of care.
[2021-06-24] MEDS: lactobacillus rhamnosus 10,000 MMU CELLS/CAPSULE PO SCH (20:46)
--- NOTE | 2021-06-24 20:54 | NUR ---
Patient in room PCU 3013. I have received report from KRISTIE RICHARDS and had the opportunity to ask questions and assume patient care.
[2021-06-24] MEDS: insulin glargine (Lantus) pen - multi-dose SQ SCH (21:32)
[2021-06-24 22:00] VITALS: BP 101/70
[2021-06-24 22:11] LABS: MAGNESIUM 2.4 MG/DL (1.5-2.4)
[2021-06-24 22:13] LABS: POTASSIUM 3.6 MMOL/L (3.5-5.1)
[2021-06-25] MEDS: ceFAZolin/D5W- 1GM premix 50 ML IV SCH ×3 (00:49→15:50)
[2021-06-25] MEDS: dextrose 5%-normal saline 1,000 ML IV SCH (01:39)
[2021-06-25 02:00] VITALS: BP 98/67
[2021-06-25] MEDS: HYDROcodone/acetaminophen 10/325mg tab PO PRN ×3 (04:50→16:59)
[2021-06-25 06:00] VITALS: BP 127/105
--- NOTE | 2021-06-25 06:30 | NUR ---
Problems reprioritized. Patient report given, questions answered & plan of care reviewed with MAXX RICHARDS.
[2021-06-25 07:24] LABS: BASOPHILS # (AUTO) 0.1 X10'3 (0-0.2); BASOPHILS % (AUTO) 0.6 % (0-1); EOSINOPHILS # (AUTO) 0.3 X10'3 (0-0.9); EOSINOPHILS % (AUTO) 1.7 % (0-6); HEMATOCRIT 39.1 % (42.0-52.0); LYMPHOCYTES # (AUTO) 1.6 X10'3 (1.1-4.8); LYMPHOCYTES % (AUTO) 10.5 % (21-51); MEAN CORPUSCULAR HEMOGLOBIN 29.7 PG (27.0-31.0); MEAN CORPUSCULAR HGB CONC 33.4 g/dL (33.0-36.5); MEAN CORPUSCULAR VOLUME 88.9 FL (78-98); MEAN PLATELET VOLUME 8.3 FL (7.4-10.4); MONOCYTES # (AUTO) 1.2 X10'3 (0-0.9); MONOCYTES % (AUTO) 7.9 % (2-12); NEUTROPHILS # (AUTO) 12.3 X10'3 (1.8-7.7); NEUTROPHILS % (AUTO) 79.3 % (42-75); PLATELET COUNT 376 X10'3 (140-440); RED CELL DISTRIBUTION WIDTH 15.3 % (11.5-14.5); WHITE BLOOD COUNT 15.5 X10'3 (4.5-11.0)
[2021-06-25] MEDS: JUVEN Smoothie Arginine/Glut./Ca2+Bmb (Juven 19.3pkt) 240ml cup PO SCH ×2 (07:30→17:35)
[2021-06-25 08:03] LABS: ALANINE AMINOTRANSFERASE 55 U/L (12-78); ALBUMIN 2.1 G/DL (3.4-5.0); ALBUMIN/GLOBULIN RATIO 0.5 (1.1-1.5); ALKALINE PHOSPHATASE 150 IU/L (46-116); ANION GAP 7 (8-16); ASPARTATE AMINO TRANSFERASE 86 U/L (10-37); BILIRUBIN,TOTAL 1.3 MG/DL (0.1-1.0); BLOOD UREA NITROGEN 27 MG/DL (7-18); CALCIUM 8.8 MG/DL (8.5-10.1); CHLORIDE 97 MMOL/L (99-107); GLUCOSE 117 MG/DL (70-104); PHOSPHORUS 3.1 MG/DL (2.3-4.5); POTASSIUM 3.3 MMOL/L (3.5-5.1); SODIUM 137 MMOL/L (135-145); TOTAL CARBON DIOXIDE 32.7 MMOL/L (24-32); TOTAL PROTEIN 6.5 G/DL (6.4-8.2); eGFR 48 ML/MIN
[2021-06-25] MEDS: docusate sodium 100mg/10ml UD cup PO SCH ×2 (08:41→19:36)
[2021-06-25] MEDS: carVEDilol 12.5mg tablet PO SCH ×2 (08:42→19:36)
[2021-06-25] MEDS: lactobacillus rhamnosus 10,000 MMU CELLS/CAPSULE PO SCH ×2 (08:42→19:36)
[2021-06-25] MEDS: potassium Cl 20 mEq SR tablet PO SCH (08:42)
[2021-06-25] MEDS: furosemide 20MG tablet PO SCH ×2 (08:43→19:38)
[2021-06-25] MEDS: potassium Cl 20 mEq SR tablet PO PRN ×3 (08:44→17:01)
[2021-06-25] MEDS: metolazone 2.5mg tablet PO SCH (08:46)
[2021-06-25] MEDS: pantoprazole 40mg Tablet.DR PO SCH (08:46)
[2021-06-25 11:00] VITALS: BP 102/80
[2021-06-25] MEDS: insulin Lispro (HumaLOG) vial - multi-dose SQ SCH (13:19)
[2021-06-25 15:00] VITALS: BP 125/80
[2021-06-25] MEDS: rivaroxaban 20mg tablet PO SCH (17:29)
[2021-06-25 18:00] VITALS: BP 114/74
--- NOTE | 2021-06-25 18:35 | NUR ---
Problems reprioritized. Patient report given, questions answered & plan of care reviewed with NI. Patient stable at transfer of care.
[2021-06-25] MEDS: insulin glargine (Lantus) pen - multi-dose SQ SCH (21:05)
[2021-06-25 22:00] VITALS: BP 116/91
[2021-06-26] VITALS (8 sets, daily range): BP systolic 98–112; BP diastolic 54–86
[2021-06-26] MEDS: ceFAZolin/D5W- 1GM premix 50 ML IV SCH ×3 (00:06→16:01)
[2021-06-26] MEDS: HYDROcodone/acetaminophen 10/325mg tab PO PRN ×3 (00:20→19:04)
[2021-06-26 06:10] LABS: BASOPHILS # (AUTO) 0.1 X10'3 (0-0.2); BASOPHILS % (AUTO) 0.7 % (0-1); EOSINOPHILS # (AUTO) 0.2 X10'3 (0-0.9); EOSINOPHILS % (AUTO) 1.7 % (0-6); HEMATOCRIT 38.1 % (42.0-52.0); HEMOGLOBIN 12.7 g/dl (14.0-17.9); LYMPHOCYTES # (AUTO) 1.8 X10'3 (1.1-4.8); LYMPHOCYTES % (AUTO) 13.3 % (21-51); MEAN CORPUSCULAR HEMOGLOBIN 29.6 PG (27.0-31.0); MEAN CORPUSCULAR HGB CONC 33.4 g/dL (33.0-36.5); MEAN CORPUSCULAR VOLUME 88.9 FL (78-98); MEAN PLATELET VOLUME 8.6 FL (7.4-10.4); MONOCYTES # (AUTO) 1.2 X10'3 (0-0.9); MONOCYTES % (AUTO) 8.8 % (2-12); NEUTROPHILS # (AUTO) 10.3 X10'3 (1.8-7.7); NEUTROPHILS % (AUTO) 75.5 % (42-75); PLATELET COUNT 437 X10'3 (140-440); RED BLOOD COUNT 4.29 X10'6 (4.70-6.10); RED CELL DISTRIBUTION WIDTH 14.8 % (11.5-14.5); WHITE BLOOD COUNT 13.6 X10'3 (4.5-11.0)
[2021-06-26 06:22] LABS: ALANINE AMINOTRANSFERASE 40 U/L (12-78); ALBUMIN 2.1 G/DL (3.4-5.0); ALBUMIN/GLOBULIN RATIO 0.5 (1.1-1.5); ALKALINE PHOSPHATASE 144 IU/L (46-116); ANION GAP 5 (8-16); ASPARTATE AMINO TRANSFERASE 72 U/L (10-37); BILIRUBIN,TOTAL 1.2 MG/DL (0.1-1.0); BLOOD UREA NITROGEN 29 MG/DL (7-18); BUN/CREATININE RATIO 17.6 (5.4-32.0); CHLORIDE 98 MMOL/L (99-107); CREATININE 1.65 MG/DL (0.60-1.10); GLUCOSE 73 MG/DL (70-104); POTASSIUM 3.4 MMOL/L (3.5-5.1); SODIUM 140 MMOL/L (135-145); TOTAL CARBON DIOXIDE 37.2 MMOL/L (24-32); TOTAL PROTEIN 6.4 G/DL (6.4-8.2); eGFR 43 ML/MIN
[2021-06-26] MEDS: JUVEN Smoothie Arginine/Glut./Ca2+Bmb (Juven 19.3pkt) 240ml cup PO SCH ×2 (07:30→10:47)
[2021-06-26] MEDS: metolazone 2.5mg tablet PO SCH (08:00)
[2021-06-26] MEDS: docusate sodium 100mg/10ml UD cup PO SCH ×2 (08:15→20:32)
[2021-06-26] MEDS: pantoprazole 40mg Tablet.DR PO SCH (08:15)
[2021-06-26] MEDS: furosemide 20MG tablet PO SCH ×2 (08:15→20:00)
[2021-06-26] MEDS: carVEDilol 12.5mg tablet PO SCH ×2 (08:15→20:00)
[2021-06-26] MEDS: lactobacillus rhamnosus 10,000 MMU CELLS/CAPSULE PO SCH ×2 (08:15→20:32)
[2021-06-26] MEDS: potassium Cl 20 mEq SR tablet PO SCH (08:15)
--- NOTE | 2021-06-26 11:04 | NUR ---
lion already assessed.
[2021-06-26] MEDS: insulin Lispro (HumaLOG) vial - multi-dose SQ SCH (15:12)
[2021-06-26] MEDS: rivaroxaban 20mg tablet PO SCH (18:05)
--- NOTE | 2021-06-26 18:32 | NUR ---
Problems reprioritized. Patient report given, questions answered & plan of care reviewed with SUSIE MORTENSEN.
[2021-06-26] MEDS: insulin glargine (Lantus) pen - multi-dose SQ SCH (21:34)
[2021-06-27] MEDS: ceFAZolin/D5W- 1GM premix 50 ML IV SCH ×2 (00:23→08:37)
[2021-06-27 02:00] VITALS: BP 114/62
[2021-06-27] MEDS: HYDROcodone/acetaminophen 10/325mg tab PO PRN ×4 (02:03→20:29)
[2021-06-27 06:00] VITALS: BP 144/90
--- NOTE | 2021-06-27 06:20 | NUR ---
Patient in room PCU 3013. I have received report from Cierra RN and had the opportunity to ask questions and assume patient care.
[2021-06-27 06:31] LABS: BASOPHILS # (AUTO) 0.1 X10'3 (0-0.2); BASOPHILS % (AUTO) 0.6 % (0-1); EOSINOPHILS # (AUTO) 0.3 X10'3 (0-0.9); EOSINOPHILS % (AUTO) 2.3 % (0-6); HEMATOCRIT 38.1 % (42.0-52.0); HEMOGLOBIN 12.9 g/dl (14.0-17.9); LYMPHOCYTES # (AUTO) 1.9 X10'3 (1.1-4.8); LYMPHOCYTES % (AUTO) 13.9 % (21-51); MEAN CORPUSCULAR HEMOGLOBIN 30.2 PG (27.0-31.0); MEAN CORPUSCULAR HGB CONC 33.9 g/dL (33.0-36.5); MEAN CORPUSCULAR VOLUME 89.2 FL (78-98); MEAN PLATELET VOLUME 8.4 FL (7.4-10.4); MONOCYTES % (AUTO) 7.8 % (2-12); NEUTROPHILS # (AUTO) 10.1 X10'3 (1.8-7.7); NEUTROPHILS % (AUTO) 75.4 % (42-75); PLATELET COUNT 436 X10'3 (140-440); RED BLOOD COUNT 4.28 X10'6 (4.70-6.10); RED CELL DISTRIBUTION WIDTH 15.2 % (11.5-14.5); WHITE BLOOD COUNT 13.4 X10'3 (4.5-11.0)
[2021-06-27 06:54] LABS: ALANINE AMINOTRANSFERASE 33 U/L (12-78); ALBUMIN 2.1 G/DL (3.4-5.0); ALBUMIN/GLOBULIN RATIO 0.5 (1.1-1.5); ALKALINE PHOSPHATASE 149 IU/L (46-116); ANION GAP 1 (8-16); ASPARTATE AMINO TRANSFERASE 66 U/L (10-37); BILIRUBIN,TOTAL 1.1 MG/DL (0.1-1.0); BLOOD UREA NITROGEN 38 MG/DL (7-18); BUN/CREATININE RATIO 22.1 (5.4-32.0); CALCIUM 9.2 MG/DL (8.5-10.1); CHLORIDE 98 MMOL/L (99-107); CREATININE 1.72 MG/DL (0.60-1.10); GLUCOSE 95 MG/DL (70-104); POTASSIUM 3.3 MMOL/L (3.5-5.1); SODIUM 137 MMOL/L (135-145); TOTAL CARBON DIOXIDE 38.5 MMOL/L (24-32); TOTAL PROTEIN 6.6 G/DL (6.4-8.2); eGFR 41 ML/MIN
[2021-06-27] MEDS: JUVEN Smoothie Arginine/Glut./Ca2+Bmb (Juven 19.3pkt) 240ml cup PO SCH ×2 (07:30→20:28)
[2021-06-27] MEDS: furosemide 20MG tablet PO SCH ×2 (08:27→17:35)
[2021-06-27] MEDS: lactobacillus rhamnosus 10,000 MMU CELLS/CAPSULE PO SCH ×2 (08:27→20:28)
[2021-06-27] MEDS: docusate sodium 100mg/10ml UD cup PO SCH ×2 (08:27→20:28)
[2021-06-27] MEDS: metolazone 2.5mg tablet PO SCH (08:27)
[2021-06-27] MEDS: pantoprazole 40mg Tablet.DR PO SCH (08:27)
[2021-06-27] MEDS: carVEDilol 12.5mg tablet PO SCH ×2 (08:28→20:29)
[2021-06-27] MEDS: potassium Cl 20 mEq SR tablet PO SCH (08:28)
[2021-06-27] MEDS: potassium Cl 20 mEq SR tablet PO PRN (08:30)
[2021-06-27] MEDS: insulin Lispro (HumaLOG) vial - multi-dose SQ SCH (08:32)
[2021-06-27] MEDS: doxycycline inj 100 MG in normal saline 100ml IV soln 100 ML IV SCH ×2 (10:52→20:30)
--- NOTE | 2021-06-27 11:15 | NUR ---
PAGER ID: [phone] MESSAGE: Re: David Kennedy. Room: Room: [facility]. Pt complaining of being itchy. Can I put order in for Benedryl PO PRN? -[facility] PCU #[id number] -Dr. Mehta paged concerning Pt's itchyness
[2021-06-27] MEDS ORDERED: diphenhydrAMINE 25mg capsule PO PRN ×2 (11:50→11:55)
[2021-06-27 15:00] VITALS: BP 110/61
[2021-06-27] MEDS: rivaroxaban 20mg tablet PO SCH (17:35)
--- NOTE | 2021-06-27 17:37 | NUR ---
WOUND VAC EDUCATION PROVIDED BY WOUND CARE 1. Patient instructed to call the Wound Center or their Home Health Agency immediately if: * They notice a change in the color or amount of the fluid in the canister. * Their wound looks more red than usual or has a foul smell. * The skin around their wound looks reddened or irritated. * The dressing feels loose or appears to be loose. * They experience any increase or changes in their pain. * The alarm will not turn off. 2. Patient instructed that they should not be disconnected from suction for more than 2 hours at a time. * If they are not able to get the suction back on, they need to remove the dressing and take all of the foam out of the wound. * Then moisten sterile gauze with normal saline and place on/in the wound. * Change the dressing once a day until arrangements have been made to replace the wound vac dressing. 3. Patient instructed to turn the wound vac machine OFF and call 911 or go to the ED immediately if their canister fills rapidly with blood. 4. If any of these occur while in the hospital tell a nurse immediately. Addendum: 06/27/21 at 1737 by Delaney Barnes RN Amended: Links added.
[2021-06-27 18:00] VITALS: BP 112/68
--- NOTE | 2021-06-27 18:20 | NUR ---
Problems reprioritized. Patient report given, questions answered & plan of care reviewed with Jodi RICHARDS.
[2021-06-27] MEDS: insulin glargine (Lantus) pen - multi-dose SQ SCH (21:03)
[2021-06-27 22:00] VITALS: BP 104/58
[2021-06-28 02:00] VITALS: BP 127/76
[2021-06-28] MEDS: HYDROcodone/acetaminophen 10/325mg tab PO PRN ×4 (03:17→21:21)
--- NOTE | 2021-06-28 06:15 | NUR ---
Patient in room PCU 3013. I have received report from Jodi RICHARDS and had the opportunity to ask questions and assume patient care.
[2021-06-28 07:00] VITALS: BP_SYST 154; BP_SYST 91; BP_DIAS 58; BP_DIAS 66
[2021-06-28] MEDS: docusate sodium 100mg/10ml UD cup PO SCH ×2 (07:40→19:36)
[2021-06-28] MEDS: doxycycline inj 100 MG in normal saline 100ml IV soln 100 ML IV SCH ×2 (07:40→19:37)
[2021-06-28] MEDS: potassium Cl 20 mEq SR tablet PO SCH (07:41)
[2021-06-28] MEDS: pantoprazole 40mg Tablet.DR PO SCH (07:41)
[2021-06-28] MEDS: lactobacillus rhamnosus 10,000 MMU CELLS/CAPSULE PO SCH ×2 (07:41→19:36)
[2021-06-28] MEDS: furosemide 20MG tablet PO SCH (07:42)
[2021-06-28] MEDS: carVEDilol 12.5mg tablet PO SCH ×2 (07:42→19:36)
[2021-06-28] MEDS: JUVEN Smoothie Arginine/Glut./Ca2+Bmb (Juven 19.3pkt) 240ml cup PO SCH ×3 (07:54→19:36)
[2021-06-28] MEDS: insulin Lispro (HumaLOG) vial - multi-dose SQ SCH ×3 (09:35→19:34)
[2021-06-28 10:18] LABS: BASOPHILS # (AUTO) 0.1 X10'3 (0-0.2); BASOPHILS % (AUTO) 0.6 % (0-1); EOSINOPHILS # (AUTO) 0.2 X10'3 (0-0.9); EOSINOPHILS % (AUTO) 1.9 % (0-6); HEMATOCRIT 41.1 % (42.0-52.0); HEMOGLOBIN 13.8 g/dl (14.0-17.9); LYMPHOCYTES # (AUTO) 1.6 X10'3 (1.1-4.8); LYMPHOCYTES % (AUTO) 12.5 % (21-51); MEAN CORPUSCULAR HEMOGLOBIN 29.9 PG (27.0-31.0); MEAN CORPUSCULAR HGB CONC 33.6 g/dL (33.0-36.5); MEAN PLATELET VOLUME 8.6 FL (7.4-10.4); MONOCYTES # (AUTO) 0.9 X10'3 (0-0.9); MONOCYTES % (AUTO) 6.6 % (2-12); NEUTROPHILS # (AUTO) 10.1 X10'3 (1.8-7.7); NEUTROPHILS % (AUTO) 78.4 % (42-75); PLATELET COUNT 422 X10'3 (140-440); RED BLOOD COUNT 4.62 X10'6 (4.70-6.10); RED CELL DISTRIBUTION WIDTH 15.8 % (11.5-14.5)
[2021-06-28 10:28] LABS: ALANINE AMINOTRANSFERASE 29 U/L (12-78); ALBUMIN 2.2 G/DL (3.4-5.0); ALBUMIN/GLOBULIN RATIO 0.5 (1.1-1.5); ALKALINE PHOSPHATASE 158 IU/L (46-116); ANION GAP 10 (8-16); ASPARTATE AMINO TRANSFERASE 60 U/L (10-37); BILIRUBIN,TOTAL 1.2 MG/DL (0.1-1.0); BLOOD UREA NITROGEN 39 MG/DL (7-18); BUN/CREATININE RATIO 23.5 (5.4-32.0); CALCIUM 8.8 MG/DL (8.5-10.1); CHLORIDE 94 MMOL/L (99-107); CREATININE 1.66 MG/DL (0.60-1.10); GLUCOSE 184 MG/DL (70-104); MAGNESIUM 2.2 MG/DL (1.5-2.4); POTASSIUM 3.2 MMOL/L (3.5-5.1); SODIUM 137 MMOL/L (135-145); TOTAL CARBON DIOXIDE 32.6 MMOL/L (24-32); TOTAL PROTEIN 6.9 G/DL (6.4-8.2); eGFR 42 ML/MIN
[2021-06-28 11:00] VITALS: BP 95/60
[2021-06-28] MEDS: potassium Cl 20 mEq SR tablet PO PRN ×2 (11:31→21:20)
--- NOTE | 2021-06-28 14:41 | NUR ---
Reassessment: Pt s/p BSS 06/[address] rec[address] mechanical soft chopped food (SB6) with thin liquids, diet order has been adjusted accordingly. Pt with average 50% PO intake of meals. Now receiving Balbir smoothie BIDBD for wound healing needs, currently averaging 75% PO intake of ONS. Noted no information regarding pt receiving DM diagnosis in EMR. D/w RN who reports RN unaware if this being a new diagnosis until today and current MD may not be aware as well. RD unable to provide DM education until pt has received diagnosis by physician, therefore education remains deferred at this time. LBM 06/27. Will continue to follow closely. Recs: 1. Continue SB6 heart healthy CHO controlled diet with thin liquids per ST 2. Balbir smoothie BIDBD for wound healing; monitor need for additional ONS 3. Routine bowel care 4. Scaled wt this admit, weekly wts thereafter 5. DM education pending official dx by physician, A1c 11.1% Addendum: 06/28/21 at [address] Amended: Links added.
[2021-06-28 16:00] VITALS: BP 112/83
[2021-06-28 18:00] VITALS: BP 120/59
--- NOTE | 2021-06-28 18:10 | NUR ---
Problems reprioritized. Patient report given, questions answered & plan of care reviewed with Jodi RICHARDS
[2021-06-28] MEDS: rivaroxaban 20mg tablet PO SCH (20:07)
[2021-06-28] MEDS: insulin glargine (Lantus) pen - multi-dose SQ SCH (21:45)
[2021-06-28 22:00] VITALS: BP 98/80
[2021-06-29 02:00] VITALS: BP 109/70
[2021-06-29] MEDS: HYDROcodone/acetaminophen 10/325mg tab PO PRN ×4 (02:30→20:02)
[2021-06-29 07:00] VITALS: BP 100/71
[2021-06-29] MEDS: pantoprazole 40mg Tablet.DR PO SCH (07:20)
[2021-06-29] MEDS: lactobacillus rhamnosus 10,000 MMU CELLS/CAPSULE PO SCH ×2 (08:00→20:00)
[2021-06-29] MEDS: carVEDilol 12.5mg tablet PO SCH ×2 (08:00→20:01)
[2021-06-29 09:25] LABS: BASOPHILS # (AUTO) 0.1 X10'3 (0-0.2); BASOPHILS % (AUTO) 0.8 % (0-1); EOSINOPHILS # (AUTO) 0.3 X10'3 (0-0.9); EOSINOPHILS % (AUTO) 2.5 % (0-6); HEMOGLOBIN 13.5 g/dl (14.0-17.9); LYMPHOCYTES # (AUTO) 1.7 X10'3 (1.1-4.8); LYMPHOCYTES % (AUTO) 12.4 % (21-51); MEAN CORPUSCULAR HEMOGLOBIN 30.1 PG (27.0-31.0); MEAN CORPUSCULAR HGB CONC 33.7 g/dL (33.0-36.5); MEAN CORPUSCULAR VOLUME 89.2 FL (78-98); MEAN PLATELET VOLUME 8.1 FL (7.4-10.4); MONOCYTES % (AUTO) 7.6 % (2-12); NEUTROPHILS # (AUTO) 10.3 X10'3 (1.8-7.7); NEUTROPHILS % (AUTO) 76.7 % (42-75); PLATELET COUNT 446 X10'3 (140-440); RED BLOOD COUNT 4.48 X10'6 (4.70-6.10); WHITE BLOOD COUNT 13.5 X10'3 (4.5-11.0)
[2021-06-29] MEDS: doxycycline inj 100 MG in normal saline 100ml IV soln 100 ML IV SCH ×2 (09:26→20:00)
[2021-06-29 09:34] LABS: ALANINE AMINOTRANSFERASE 25 U/L (12-78); ALBUMIN 2.2 G/DL (3.4-5.0); ALBUMIN/GLOBULIN RATIO 0.5 (1.1-1.5); ALKALINE PHOSPHATASE 156 IU/L (46-116); ANION GAP 8 (8-16); ASPARTATE AMINO TRANSFERASE 51 U/L (10-37); BILIRUBIN,TOTAL 1.1 MG/DL (0.1-1.0); BLOOD UREA NITROGEN 37 MG/DL (7-18); BUN/CREATININE RATIO 25.2 (5.4-32.0); CHLORIDE 98 MMOL/L (99-107); CREATININE 1.47 MG/DL (0.60-1.10); GLUCOSE 124 MG/DL (70-104); POTASSIUM 3.1 MMOL/L (3.5-5.1); SODIUM 139 MMOL/L (135-145); TOTAL CARBON DIOXIDE 32.6 MMOL/L (24-32); eGFR 49 ML/MIN
[2021-06-29] MEDS: docusate sodium 100mg/10ml UD cup PO SCH ×2 (09:39→20:01)
[2021-06-29] MEDS: furosemide 20MG tablet PO SCH (09:39)
[2021-06-29] MEDS: potassium Cl 20 mEq SR tablet PO SCH (09:52)
[2021-06-29] MEDS: potassium Cl 20 mEq SR tablet PO PRN ×2 (09:53→14:45)
[2021-06-29 11:00] VITALS: BP 111/88
[2021-06-29] MEDS: insulin Lispro (HumaLOG) vial - multi-dose SQ SCH (13:14)
[2021-06-29 18:00] VITALS: BP 100/78
[2021-06-29] MEDS: rivaroxaban 20mg tablet PO SCH (18:07)
[2021-06-29] MEDS: JUVEN Smoothie Arginine/Glut./Ca2+Bmb (Juven 19.3pkt) 240ml cup PO SCH (18:08)
[2021-06-29] MEDS: insulin glargine (Lantus) pen - multi-dose SQ SCH (21:36)
--- NOTE | 2021-06-29 23:07 | NUR ---
PATIENT ASSESSED AT BEDSIDE. MEDICATIONS ADMINISTERED PER ORDER. ASSESSMENT DOCUMENTED. REPORT GIVEN TO SUSIE FLOWERS.
[2021-06-30] MEDS: HYDROcodone/acetaminophen 10/325mg tab PO PRN ×4 (01:41→20:30)
[2021-06-30 06:00] VITALS: BP 119/73
[2021-06-30] MEDS: JUVEN Smoothie Arginine/Glut./Ca2+Bmb (Juven 19.3pkt) 240ml cup PO SCH ×2 (07:30→17:30)
[2021-06-30] MEDS: doxycycline inj 100 MG in normal saline 100ml IV soln 100 ML IV SCH (08:34)
[2021-06-30] MEDS: lactobacillus rhamnosus 10,000 MMU CELLS/CAPSULE PO SCH ×2 (08:35→20:28)
[2021-06-30] MEDS: potassium Cl 20 mEq SR tablet PO SCH (08:36)
[2021-06-30] MEDS: docusate sodium 100mg/10ml UD cup PO SCH ×2 (08:36→20:28)
[2021-06-30] MEDS: pantoprazole 40mg Tablet.DR PO SCH (08:36)
[2021-06-30] MEDS: furosemide 20MG tablet PO SCH (08:36)
[2021-06-30] MEDS: carVEDilol 12.5mg tablet PO SCH ×2 (08:37→20:31)
[2021-06-30] MEDS: insulin Lispro (HumaLOG) vial - multi-dose SQ SCH ×2 (08:43→13:59)
[2021-06-30 09:32] LABS: BASOPHILS # (AUTO) 0.1 X10'3 (0-0.2); BASOPHILS % (AUTO) 0.9 % (0-1); EOSINOPHILS # (AUTO) 0.3 X10'3 (0-0.9); EOSINOPHILS % (AUTO) 2.2 % (0-6); HEMATOCRIT 38.3 % (42.0-52.0); LYMPHOCYTES # (AUTO) 1.8 X10'3 (1.1-4.8); LYMPHOCYTES % (AUTO) 14.2 % (21-51); MEAN CORPUSCULAR HEMOGLOBIN 30.5 PG (27.0-31.0); MEAN CORPUSCULAR HGB CONC 33.9 g/dL (33.0-36.5); MEAN PLATELET VOLUME 8.2 FL (7.4-10.4); MONOCYTES # (AUTO) 0.8 X10'3 (0-0.9); NEUTROPHILS # (AUTO) 9.8 X10'3 (1.8-7.7); NEUTROPHILS % (AUTO) 76.7 % (42-75); PLATELET COUNT 444 X10'3 (140-440); RED BLOOD COUNT 4.26 X10'6 (4.70-6.10); WHITE BLOOD COUNT 12.9 X10'3 (4.5-11.0)
[2021-06-30 09:39] LABS: ANION GAP 7 (8-16); BLOOD UREA NITROGEN 38 MG/DL (7-18); BUN/CREATININE RATIO 24.8 (5.4-32.0); CALCIUM 8.7 MG/DL (8.5-10.1); CHLORIDE 99 MMOL/L (99-107); CREATININE 1.53 MG/DL (0.60-1.10); GLUCOSE 179 MG/DL (70-104); POTASSIUM 3.5 MMOL/L (3.5-5.1); SODIUM 137 MMOL/L (135-145); TOTAL CARBON DIOXIDE 30.9 MMOL/L (24-32); eGFR 47 ML/MIN
[2021-06-30 11:00] VITALS: BP 109/59
[2021-06-30 15:00] VITALS: BP 113/70
[2021-06-30] MEDS: DOXYCYCLINE 100MG CAPSULE PO SCH (17:30)
[2021-06-30 18:00] VITALS: BP 134/78
[2021-06-30] MEDS: rivaroxaban 20mg tablet PO SCH (18:41)
--- NOTE | 2021-06-30 18:52 | NUR ---
Patient in room U 3013. I have received report from MAGGI RICHARDS and had the opportunity to ask questions and assume patient care. Addendum: 06/30/21 at 1852 by Cristin Christian RN Amended: Links added.
--- NOTE | 2021-06-30 18:52 | NUR ---
Problems reprioritized. Patient report given, questions answered & plan of care reviewed with SARA RICHARDS.
[2021-06-30] MEDS: insulin glargine (Lantus) pen - multi-dose SQ SCH (20:44)
[2021-06-30 22:00] VITALS: BP 105/74
--- NOTE | 2021-07-01 02:25 | NUR ---
RESTING WITHOUT S&S OF DISTRESS AT THIS TIME.
[2021-07-01 02:30] VITALS: BP 124/96
[2021-07-01 06:00] VITALS: BP 138/65
--- NOTE | 2021-07-01 06:12 | NUR ---
Problems reprioritized. Patient report given, questions answered & plan of care reviewed with MAGGI RICHARDS. Student documentation: I have reviewed and agree with all interventions, assessments performed and documented by JENELLE DAVID RN STUDENT.Student Medication Administration: For this medication-pass time frame, all medication were reviewed, dispensed, administered and documented per hospital policy by JENELLE DAVID RN STUDENT. Addendum: 07/01/21 at 0645 by Cristin Christian RN Amended: Links added.
[2021-07-01] MEDS: docusate sodium 100mg/10ml UD cup PO SCH ×2 (07:58→20:00)
[2021-07-01] MEDS: lactobacillus rhamnosus 10,000 MMU CELLS/CAPSULE PO SCH ×2 (07:58→19:10)
[2021-07-01] MEDS: pantoprazole 40mg Tablet.DR PO SCH (07:58)
[2021-07-01] MEDS: furosemide 20MG tablet PO SCH (07:58)
[2021-07-01] MEDS: carVEDilol 12.5mg tablet PO SCH ×2 (07:59→19:12)
[2021-07-01] MEDS: DOXYCYCLINE 100MG CAPSULE PO SCH ×2 (07:59→17:53)
[2021-07-01] MEDS: potassium Cl 20 mEq SR tablet PO SCH ×2 (07:59→19:12)
[2021-07-01] MEDS: insulin Lispro (HumaLOG) vial - multi-dose SQ SCH ×2 (08:09→19:09)
[2021-07-01] MEDS: JUVEN Smoothie Arginine/Glut./Ca2+Bmb (Juven 19.3pkt) 240ml cup PO SCH ×2 (08:13→17:30)
[2021-07-01 09:31] LABS: BASOPHILS # (AUTO) 0.1 X10'3 (0-0.2); BASOPHILS % (AUTO) 0.9 % (0-1); EOSINOPHILS # (AUTO) 0.2 X10'3 (0-0.9); HEMATOCRIT 40.5 % (42.0-52.0); HEMOGLOBIN 13.2 g/dl (14.0-17.9); LYMPHOCYTES # (AUTO) 1.4 X10'3 (1.1-4.8); MEAN CORPUSCULAR HEMOGLOBIN 29.7 PG (27.0-31.0); MEAN CORPUSCULAR HGB CONC 32.6 g/dL (33.0-36.5); MEAN CORPUSCULAR VOLUME 91.3 FL (78-98); MEAN PLATELET VOLUME 8.3 FL (7.4-10.4); MONOCYTES # (AUTO) 0.8 X10'3 (0-0.9); MONOCYTES % (AUTO) 7.2 % (2-12); NEUTROPHILS # (AUTO) 9.2 X10'3 (1.8-7.7); NEUTROPHILS % (AUTO) 77.9 % (42-75); PLATELET COUNT 432 X10'3 (140-440); RED BLOOD COUNT 4.44 X10'6 (4.70-6.10); RED CELL DISTRIBUTION WIDTH 15.5 % (11.5-14.5); WHITE BLOOD COUNT 11.8 X10'3 (4.5-11.0)
[2021-07-01 09:52] LABS: ALBUMIN 2.1 G/DL (3.4-5.0); ANION GAP 5 (8-16); BLOOD UREA NITROGEN 38 MG/DL (7-18); BUN/CREATININE RATIO 24.8 (5.4-32.0); CHLORIDE 100 MMOL/L (99-107); CREATININE 1.53 MG/DL (0.60-1.10); GLUCOSE 182 MG/DL (70-104); POTASSIUM 3.4 MMOL/L (3.5-5.1); SODIUM 137 MMOL/L (135-145); TOTAL CARBON DIOXIDE 31.7 MMOL/L (24-32); eGFR 47 ML/MIN
[2021-07-01] MEDS: HYDROcodone/acetaminophen 10/325mg tab PO PRN ×3 (10:11→19:46)
[2021-07-01 11:00] VITALS: BP 121/75
--- NOTE | 2021-07-01 15:31 | NUR ---
F/u 07/01: Pt PO 50-75% avg carb controlled/heart healthy/SB6 meals and Balbir ONS BIDBD partially meeting needs. Pt would benefit from ensure high protein WL for additional protein/kcal needs; notified. LBM 06/30 receiving routine colace. ANIYA d/w RN still no mention of new DM DX in any MD notes this admit; pt needs to receive DM DX by MD prior to RD diet ed. ANIYA has contacted multiple RN's and reviewed w/ MD this admit regarding need for new DX. Will continue to monitor. Recommendations: 1. Continue SB6 heart healthy CHO controlled diet with thin liquids per ST 2. Balbir smoothie BIDBD for wound healing encourage PO; Ensure High Protein WL pending MD verification 3. Routine bowel care 4. Scaled wt this admit, weekly wts thereafter 5. DM education pending official dx by physician, A1c 11.1% Addendum: 07/01/21 at [address] Amended: Links added.
[2021-07-01 17:45] VITALS: BP 110/75
[2021-07-01] MEDS: rivaroxaban 20mg tablet PO SCH (17:52)
[2021-07-01 18:00] VITALS: BP 112/78
--- NOTE | 2021-07-01 18:00 | NUR ---
Patient in room PCU 3013. I have received report from Siddhartha and had the opportunity to ask questions and assume patient care.
--- NOTE | 2021-07-01 18:19 | NUR ---
Problems reprioritized. Patient report given, questions answered & plan of care reviewed with ARABELLA RICHARDS.
[2021-07-01] MEDS: insulin glargine (Lantus) pen - multi-dose SQ SCH (21:33)
[2021-07-01 22:00] VITALS: BP 103/68
--- NOTE | 2021-07-01 22:28 | NUR ---
undid RAZ [employer] medicine physician, due to 3.4 k level, gave unschdueled KDUR, not schdueled.
[2021-07-01] MEDS: potassium Cl 20 mEq SR tablet PO PRN (22:29)
[2021-07-02 02:00] VITALS: BP 114/70
[2021-07-02 06:00] VITALS: BP 146/90
--- NOTE | 2021-07-02 06:10 | NUR ---
Problems reprioritized. Patient report given, questions answered & plan of care reviewed with Sabas-SUSIE.
[2021-07-02] MEDS: lactobacillus rhamnosus 10,000 MMU CELLS/CAPSULE PO SCH ×2 (07:47→19:30)
[2021-07-02] MEDS: pantoprazole 40mg Tablet.DR PO SCH (07:47)
[2021-07-02] MEDS: docusate sodium 100mg/10ml UD cup PO SCH ×2 (07:47→19:30)
[2021-07-02] MEDS: DOXYCYCLINE 100MG CAPSULE PO SCH ×2 (07:47→17:56)
[2021-07-02] MEDS: furosemide 20MG tablet PO SCH (07:47)
[2021-07-02] MEDS: carVEDilol 12.5mg tablet PO SCH ×2 (07:47→19:30)
[2021-07-02] MEDS: HYDROcodone/acetaminophen 10/325mg tab PO PRN ×3 (07:47→20:58)
[2021-07-02] MEDS: potassium Cl 20 mEq SR tablet PO SCH (07:47)
[2021-07-02] MEDS: JUVEN Smoothie Arginine/Glut./Ca2+Bmb (Juven 19.3pkt) 240ml cup PO SCH ×2 (07:57→17:58)
[2021-07-02 08:23] LABS: BASOPHILS # (AUTO) 0.1 X10'3 (0-0.2); BASOPHILS % (AUTO) 0.9 % (0-1); EOSINOPHILS # (AUTO) 0.3 X10'3 (0-0.9); EOSINOPHILS % (AUTO) 2.4 % (0-6); LYMPHOCYTES # (AUTO) 1.8 X10'3 (1.1-4.8); LYMPHOCYTES % (AUTO) 14.8 % (21-51); MEAN CORPUSCULAR HEMOGLOBIN 29.7 PG (27.0-31.0); MEAN CORPUSCULAR HGB CONC 33.4 g/dL (33.0-36.5); MEAN CORPUSCULAR VOLUME 89.1 FL (78-98); MEAN PLATELET VOLUME 8.2 FL (7.4-10.4); MONOCYTES # (AUTO) 0.9 X10'3 (0-0.9); MONOCYTES % (AUTO) 7.4 % (2-12); NEUTROPHILS # (AUTO) 9.3 X10'3 (1.8-7.7); NEUTROPHILS % (AUTO) 74.5 % (42-75); PLATELET COUNT 440 X10'3 (140-440); RED BLOOD COUNT 4.38 X10'6 (4.70-6.10); RED CELL DISTRIBUTION WIDTH 15.6 % (11.5-14.5); WHITE BLOOD COUNT 12.4 X10'3 (4.5-11.0)
[2021-07-02 08:45] LABS: ALBUMIN 2.2 G/DL (3.4-5.0); ANION GAP 7 (8-16); BLOOD UREA NITROGEN 36 MG/DL (7-18); BUN/CREATININE RATIO 25.7 (5.4-32.0); CALCIUM 8.8 MG/DL (8.5-10.1); CHLORIDE 100 MMOL/L (99-107); GLUCOSE 98 MG/DL (70-104); POTASSIUM 3.9 MMOL/L (3.5-5.1); SODIUM 140 MMOL/L (135-145); eGFR 52 ML/MIN
[2021-07-02 11:00] VITALS: BP 99/69
[2021-07-02] MEDS ORDERED: lactose-reduced food (Ensure High Protein) 237ml bottle PO SCH (12:30)
[2021-07-02] MEDS: insulin Lispro (HumaLOG) vial - multi-dose SQ SCH (13:23)
[2021-07-02 15:00] VITALS: BP 94/68
[2021-07-02] MEDS: rivaroxaban 20mg tablet PO SCH (17:56)
[2021-07-02 18:00] VITALS: BP 138/84
--- NOTE | 2021-07-02 18:43 | NUR ---
Problems reprioritized. Patient report given, questions answered & plan of care reviewed with CHARIS RICHARDS.
[2021-07-02] MEDS: insulin glargine (Lantus) pen - multi-dose SQ SCH (21:15)
[2021-07-02 22:00] VITALS: BP 138/80
[2021-07-03 02:00] VITALS: BP 128/72
[2021-07-03] MEDS: HYDROcodone/acetaminophen 10/325mg tab PO PRN ×3 (05:37→15:19)
[2021-07-03 06:00] VITALS: BP 130/69
--- NOTE | 2021-07-03 06:31 | NUR ---
Problems reprioritized. Patient report given, questions answered & plan of care reviewed with Jose Antonio RICHARDS.
[2021-07-03] MEDS: JUVEN Smoothie Arginine/Glut./Ca2+Bmb (Juven 19.3pkt) 240ml cup PO SCH (07:30)
[2021-07-03] MEDS: docusate sodium 100mg/10ml UD cup PO SCH (07:42)
[2021-07-03] MEDS: furosemide 20MG tablet PO SCH (07:42)
[2021-07-03] MEDS: carVEDilol 12.5mg tablet PO SCH (07:42)
[2021-07-03] MEDS: potassium Cl 20 mEq SR tablet PO SCH (07:43)
[2021-07-03] MEDS: pantoprazole 40mg Tablet.DR PO SCH (07:43)
[2021-07-03] MEDS: lactobacillus rhamnosus 10,000 MMU CELLS/CAPSULE PO SCH (07:43)
[2021-07-03] MEDS ORDERED: LANTUS SQ (08:53)
[2021-07-03] MEDS ORDERED: HYDR-3972 PO (09:00)
[2021-07-03] MEDS: DOXYCYCLINE 100MG CAPSULE PO SCH (09:04)
--- NOTE | 2021-07-03 10:08 | NUR ---
patient has a wound vac on right lower extremities , patient will dischared home with wound vac . picture was not taken since the wound is packed with foam and wound vac is applied
[2021-07-03 11:00] VITALS: BP 95/67
[2021-07-03] MEDS: insulin Lispro (HumaLOG) vial - multi-dose SQ SCH (13:58)
--- NOTE | 2021-07-03 15:50 | NUR ---
F/u: Per RN patient given DM dx by physician and to receive rx for glucometer and insulin on discharge. Pt and SO seen at bedside for written and verbal DM nutrition therapy education. Patient having complications with wound VAC so verbal DM education was brief. RD able to review current A1c, foods that contain carbs, carb intake in moderation, and reading the nutrition facts label. RD discussed appropriate ONS to assist with increased protein needs and provided ONS coupons. RD contact information provided and pt/SO encouraged to reach out for questions. Will remain available. Addendum: 07/03/21 at [address] Amended: Links added.
--- NOTE | 2021-07-03 17:42 | NUR ---
patient discharged home with a spouse on a private van car . patient was escorted off unit with production staff worker on a wheelchair. patient was alert and oriented x 4 with stable vital signs. patient's pIV on left wrist discontinued with catheter tip intact. patient went home with mobile wound vac , dressing change and reinforcement was done by the nurse director. wound vac suction work best at time of discharge. patient has a surgical incision on his right thigh, it proximated with adalberto ,wound is open to air. diabetic education was given written and verbally. patient was able to give himself an insulin injection. patient describe when to call for a follow up appointment . glucometer device order was faxed to [facility] pharmacy.
== END 2021-07-03 15:55 | disposition home health service (06) | DRG 271 ==
LOC: ER 14:21 → PACU 20:02 → ICU 2S 06-17 02:00 → PCU 3S 06-20 16:24
PROVIDERS: ADMIT Internal Medicine Critical Care Medicine; ATTEND Internal Medicine Critical Care Medicine
PROC: 04CM3ZZ Extirpation of Matter from Right Popliteal Artery, Percutaneous Approach (ICD-10-PCS; 2021-06-16)
PROC: 041M0KQ Bypass Right Popliteal Artery to Lower Extremity Artery with Nonautologous Tissue Substitute, Open Approach (ICD-10-PCS; 2021-06-16)
PROC: 04CK3ZZ Extirpation of Matter from Right Femoral Artery, Percutaneous Approach (ICD-10-PCS; 2021-06-16)
PROC: 047K3ZZ Dilation of Right Femoral Artery, Percutaneous Approach (ICD-10-PCS; 2021-06-16)
PROC: 3E03317 Introduction of Other Thrombolytic into Peripheral Vein, Percutaneous Approach (ICD-10-PCS; 2021-06-16)
PROC: B41F1ZZ Fluoroscopy of Right Lower Extremity Arteries using Low Osmolar Contrast (ICD-10-PCS; 2021-06-16)
PROC: B4201ZZ Computerized Tomography (CT Scan) of Abdominal Aorta using Low Osmolar Contrast (ICD-10-PCS; 2021-06-16)
PROC: B42H1ZZ Computerized Tomography (CT Scan) of Bilateral Lower Extremity Arteries using Low Osmolar Contrast (ICD-10-PCS; 2021-06-16)
PROC: B42H1ZZ Computerized Tomography (CT Scan) of Bilateral Lower Extremity Arteries using Low Osmolar Contrast (ICD-10-PCS; 2021-06-16)
PROC: 04CR0ZZ Extirpation of Matter from Right Posterior Tibial Artery, Open Approach (ICD-10-PCS; principal; 2021-06-16 21:25)
PROC: 3E0234Z Introduction of Serum, Toxoid and Vaccine into Muscle, Percutaneous Approach (ICD-10-PCS; 2021-06-18)
PROC: 3E02340 Introduction of Influenza Vaccine into Muscle, Percutaneous Approach (ICD-10-PCS; 2021-06-18)
DX: I70.221 Atherosclerosis of native arteries of extremities with rest pain, right leg (principal); E87.1 Hypo-osmolality and hyponatremia; N17.9 Acute kidney failure, unspecified; I13.0 Hypertensive heart and chronic kidney disease with heart failure and stage 1 through stage 4 chronic kidney disease, or unspecified chronic kidney disease; I50.22 Chronic systolic (congestive) heart failure; L03.115 Cellulitis of right lower limb; I99.8 Other disorder of circulatory system; E87.6 Hypokalemia; G47.30 Sleep apnea, unspecified; N18.30 Chronic kidney disease, stage 3 unspecified; F17.210 Nicotine dependence, cigarettes, uncomplicated; J44.9 Chronic obstructive pulmonary disease, unspecified; I48.91 Unspecified atrial fibrillation; F12.90 Cannabis use, unspecified, uncomplicated; Z79.01 Long term (current) use of anticoagulants; Z23 Encounter for immunization; Z79.899 Other long term (current) drug therapy; Z78.1 Physical restraint status; Z95.810 Presence of automatic (implantable) cardiac defibrillator
CPT/HCPCS: 36415; 36600; 37225; 71045; 73560; 75635; 76000; 80048; 80053; 80061; 80076; 82248; 82550; 82553; 82803; 82948; 83036; 83605; 83735; 83880; 84100; 84132; 84145; 84484; 85018; 85025; 85347; 85610; 85730; 86885; 86900; 86901; 86920; 87040; 87081; 87635; 88304; 90732; 92508; 92616; 93005; 93306; 93926; 94002; 94003; 94667; 94760; 97110; 97116; 97161; 97530; 97535; 99152; 99153; 99285; A4618; A6455; A6550; A7000; C1725; C1751; C1757; C1758; C1768; C1769; C1887; C1894; C9113; C9803; G0378; J0360; J0690; J1644; J1815; J1940; J2001; J2250; J2270; J2370; J2405; J2997; J3010; J3475; J3480; J3490; J7030; J7040; J7042; J7120; J7121; P9045; Q9967

== ENCOUNTER 2021-07-06 14:12 | Inpatient (IN) | payer MEDICARE ==
[~2021-07-06] VITALS: Ht 180.3 cm; Wt 88.0 kg
[~2021-07-06 14:12] MED LIST changes: -ALBU18HF2; +HYDR-3972 PO; +LANTUS SQ; +LOSA50TA64 PO; +METO5TAB7 PO; +POTA20TA19 PO; -SACU1TAB
[2021-07-06] MEDS ORDERED: normal saline 1000ML IV soln IVB ONE (14:40)
[2021-07-06 14:50] LABS: BASOPHILS # (AUTO) 0.1 X10'3 (0-0.2); BASOPHILS % (AUTO) 0.8 % (0-1); EOSINOPHILS # (AUTO) 0.3 X10'3 (0-0.9); EOSINOPHILS % (AUTO) 2.6 % (0-6); HEMATOCRIT 39.2 % (42.0-52.0); HEMOGLOBIN 13.1 g/dl (14.0-17.9); LYMPHOCYTES # (AUTO) 2.3 X10'3 (1.1-4.8); LYMPHOCYTES % (AUTO) 17.7 % (21-51); MEAN CORPUSCULAR HEMOGLOBIN 30.1 PG (27.0-31.0); MEAN CORPUSCULAR HGB CONC 33.4 g/dL (33.0-36.5); MEAN CORPUSCULAR VOLUME 90.1 FL (78-98); MEAN PLATELET VOLUME 8.6 FL (7.4-10.4); MONOCYTES # (AUTO) 0.8 X10'3 (0-0.9); MONOCYTES % (AUTO) 6.3 % (2-12); NEUTROPHILS # (AUTO) 9.5 X10'3 (1.8-7.7); NEUTROPHILS % (AUTO) 72.6 % (42-75); PLATELET COUNT 440 X10'3 (140-440); RED BLOOD COUNT 4.35 X10'6 (4.70-6.10); RED CELL DISTRIBUTION WIDTH 15.5 % (11.5-14.5); WHITE BLOOD COUNT 13.1 X10'3 (4.5-11.0)
[2021-07-06] MEDS ORDERED: amiodarone 50MG/ML inj IV ONE (14:55)
[2021-07-06] MEDS ORDERED: amiodarone 150mg/dext, iso-os 100 ML IV ONE (15:00)
[2021-07-06 15:18] LABS: BILIRUBIN,TOTAL 1.1 MG/DL (0.1-1.0); POTASSIUM 5.4 MMOL/L (3.5-5.1)
[2021-07-06] MEDS ORDERED: magnesium 2GM in 50ml NS 50 ML IV ONE (15:25)
[2021-07-06 15:30] LABS: ALANINE AMINOTRANSFERASE 468 U/L (12-78); ALBUMIN 2.6 G/DL (3.4-5.0); ALBUMIN/GLOBULIN RATIO 0.5 (1.1-1.5); ALKALINE PHOSPHATASE 189 IU/L (46-116); ANION GAP 11 (8-16); ASPARTATE AMINO TRANSFERASE 311 U/L (10-37); BLOOD UREA NITROGEN 101 MG/DL (7-18); BUN/CREATININE RATIO 30.1 (5.4-32.0); CALCIUM 8.9 MG/DL (8.5-10.1); CHLORIDE 94 MMOL/L (99-107); CREATININE 3.36 MG/DL (0.60-1.10); GLUCOSE 162 MG/DL (70-104); SODIUM 133 MMOL/L (135-145); TOTAL CARBON DIOXIDE 27.6 MMOL/L (24-32); TOTAL PROTEIN 7.5 G/DL (6.4-8.2); eGFR 19 ML/MIN
[2021-07-06 15:48] LABS: MAGNESIUM 2.3 MG/DL (1.5-2.4)
[2021-07-06] MEDS ORDERED: LIDOcaine 2% (20 mg/ml) 5ml cardiac syringe IV STA (16:03)
[2021-07-06] MEDS ORDERED: INSU100V9 PO (16:43)
[2021-07-06] MEDS ORDERED: dextrose 50%-water 50ml dispensing syringe IV PRN ×2 (17:05)
[2021-07-06] MEDS ORDERED: potassium Cl 20 mEq SR tablet PO PRN ×2 (17:05)
[2021-07-06] MEDS ORDERED: magnesium 2GM in 50ml NS 50 ML IV PRN (17:05)
[2021-07-06] MEDS ORDERED: glucagon, human recombinant 1mg kit SUBCUT PRN (17:05)
[2021-07-06] MEDS ORDERED: SODIUM ZIRCONIUM CYCLOSILICATE 10 GM POWD.PACK PO SCH (17:05)
[2021-07-06] MEDS ORDERED: magnesium 4gm in 100ml NS 100 ML IV PRN (17:05)
[2021-07-06] MEDS ORDERED: morphine 2 MG/ML inj. syringe IV PRN (17:05)
[2021-07-06] MEDS ORDERED: potassium Cl 40MEQ/1/2NS 520ml 520 ML IV PRN ×2 (17:05)
[2021-07-06] MEDS ORDERED: insulin Lispro (HumaLOG) vial - multi-dose SQ SCH (17:05)
[2021-07-06] MEDS ORDERED: dextrose ORAL solution 15 GM/59 ML bottle PO PRN ×2 (17:05)
[2021-07-06] MEDS ORDERED: ondansetron/PF 4mg/2ml inj IV PRN (17:05)
[2021-07-06] MEDS ORDERED: mag hydrox/Alum hydrox/simeth 30ml oral suspension PO PRN (17:05)
[2021-07-06] MEDS ORDERED: acetaminophen 325mg tablet PO PRN (17:05)
[2021-07-06] MEDS ORDERED: MESSAGE TO PHARMACY PO ONE (17:05)
[2021-07-06] MEDS ORDERED: magnesium hydroxide 30ml (MOM) UD suspension PO PRN (17:05)
[2021-07-06] MEDS ORDERED: ipratropium/albuterol 3ml nebule NEB PRN (17:05)
[2021-07-06] MEDS ORDERED: albuterol 2.5 MG/3 ML nebule NEB PRN (17:05)
[2021-07-06] MEDS ORDERED: sodium polystyrene sulfonate 15gm/60ml oral suspension PO ONE ×2 (17:10→17:35)
[2021-07-06 17:42] LABS: HEMOGLOBIN A1C 9.6 % (4.5-6.2)
[2021-07-06] MEDS ORDERED: amiodarone/D5 360MG/200ML BAG 200 ML IV ONE (18:15)
--- NOTE | 2021-07-06 18:26 | NUR ---
Pt states he has [employer] pacemaker. Will Call [employer] to interrogate pacemaker
[2021-07-06] MEDS: docusate sod 100mg capsule PO SCH (19:08)
[2021-07-06] MEDS: carVEDilol 12.5mg tablet PO SCH (19:08)
[2021-07-06] MEDS: morphine 2 MG/ML inj. syringe IV PRN (19:22)
[2021-07-06] MEDS: K and/or MAG REPLACEMENT MC SCH (19:29)
--- NOTE | 2021-07-06 19:30 | NUR ---
clerical secretary reported that the [employer] interrogator has been notified of pt's need for interrogation. Interrogator is based in [place].
--- NOTE | 2021-07-06 19:51 | NUR ---
MD Juarez gave orders via telephone as discussed with business analytics manager. 20MG Lasix to be given in 1H and 3 mcg/kg/min of Dobutamine to start in 2HRs. Will continue to monitor.
--- NOTE | 2021-07-06 20:37 | NUR ---
MD Bethea called nurse to get updated status on pt. Nurse reported that pt is resting comfortable with stable vitals. ordered an additional dose of 20MG after intial one time order at 2200.
--- NOTE | 2021-07-06 20:57 | NUR ---
[employer] outside sales inspector, Aida Mg, notified nurse that the patient's remote transmission does not have any SVT or nonsustained VT reported on today's transmission. She also reported that if the SVT beat isn't long enough, it will not record. Last recorded nonsustained VT was on Jul 04. portable power tool repairer to send transmissions over via fax. If interrogation is still requested by , she will be have to be notified tomorrow AM. Will notify .
[2021-07-06] MEDS: insulin glargine (Lantus) pen - multi-dose SQ SCH (21:00)
[2021-07-06] MEDS ORDERED: furosemide 20 MG/2 ML vial IV ONE (21:00)
[2021-07-06] MEDS ORDERED: DOBUTamine-DoBUTrex 500mg/D5W 250 ML IV SCH (22:00)
[2021-07-06] MEDS ORDERED: furosemide 10 MG/1 ML 10ml inj IV ONE (22:00)
[2021-07-07] MEDS: amiodarone/D5 360MG/200ML BAG 200 ML IV SCH ×2 (01:56→09:00)
[2021-07-07] MEDS: morphine 2 MG/ML inj. syringe IV PRN ×4 (01:58→21:26)
[2021-07-07 03:52] LABS: BASOPHILS # (AUTO) 0.1 X10'3 (0-0.2); BASOPHILS % (AUTO) 0.5 % (0-1); EOSINOPHILS # (AUTO) 0.3 X10'3 (0-0.9); EOSINOPHILS % (AUTO) 2.3 % (0-6); HEMATOCRIT 38.4 % (42.0-52.0); HEMOGLOBIN 12.8 g/dl (14.0-17.9); LYMPHOCYTES # (AUTO) 1.8 X10'3 (1.1-4.8); LYMPHOCYTES % (AUTO) 15.3 % (21-51); MEAN CORPUSCULAR HEMOGLOBIN 30.2 PG (27.0-31.0); MEAN CORPUSCULAR HGB CONC 33.4 g/dL (33.0-36.5); MEAN CORPUSCULAR VOLUME 90.3 FL (78-98); MEAN PLATELET VOLUME 8.2 FL (7.4-10.4); MONOCYTES # (AUTO) 0.8 X10'3 (0-0.9); MONOCYTES % (AUTO) 6.6 % (2-12); NEUTROPHILS % (AUTO) 75.3 % (42-75); PLATELET COUNT 433 X10'3 (140-440); RED BLOOD COUNT 4.25 X10'6 (4.70-6.10); RED CELL DISTRIBUTION WIDTH 15.7 % (11.5-14.5)
[2021-07-07 04:03] LABS: ALANINE AMINOTRANSFERASE 391 U/L (12-78); ALBUMIN 2.5 G/DL (3.4-5.0); ALBUMIN/GLOBULIN RATIO 0.5 (1.1-1.5); ALKALINE PHOSPHATASE 204 IU/L (46-116); ANION GAP 7 (8-16); ASPARTATE AMINO TRANSFERASE 216 U/L (10-37); BLOOD UREA NITROGEN 94 MG/DL (7-18); BUN/CREATININE RATIO 32.1 (5.4-32.0); CHLORIDE 95 MMOL/L (99-107); CREATININE 2.93 MG/DL (0.60-1.10); GLUCOSE 149 MG/DL (70-104); SODIUM 134 MMOL/L (135-145); TOTAL CARBON DIOXIDE 31.7 MMOL/L (24-32); TOTAL PROTEIN 7.3 G/DL (6.4-8.2); eGFR 22 ML/MIN
[2021-07-07 04:07] LABS: MAGNESIUM 2.5 MG/DL (1.5-2.4)
[2021-07-07] MEDS: docusate sod 100mg capsule PO SCH ×2 (07:29→21:27)
[2021-07-07] MEDS: carVEDilol 12.5mg tablet PO SCH ×2 (07:29→21:27)
[2021-07-07] MEDS: K and/or MAG REPLACEMENT MC SCH ×2 (07:30→20:00)
[2021-07-07] MEDS ORDERED: furosemide 10 MG/1 ML 10ml inj IV SCH (08:00)
[2021-07-07] MEDS ORDERED: rivaroxaban 20mg tablet PO SCH (08:00)
--- NOTE | 2021-07-07 08:25 | NUR ---
updated on status.
--- NOTE | 2021-07-07 09:40 | NUR ---
at bedside. Nurse to order pt a late breakfast tray.
--- NOTE | 2021-07-07 10:59 | NUR ---
DANIELITO Carrillo at patient's bedside updating patient on plan of care to interrogate PM.
[2021-07-07] MEDS ORDERED: aminophylline 250mg/10ml inj. IV PRN (11:25)
[2021-07-07] MEDS ORDERED: metoprolol tartrate 1mg/ml inj IV PRN (11:25)
[2021-07-07] MEDS ORDERED: nitroGLYCERIN 0.4mg SUBLingual tab SL PRN (11:25)
[2021-07-07] MEDS ORDERED: regadenoson 0.4mg/5ml syringe IV ONE (11:25)
--- NOTE | 2021-07-07 11:26 | NUR ---
DANIELITO requested PM to be interrogate. [employer] Services Manager, Aida A., was notified of requested order. account retention representative stated to nurse that she is "super short staffed" but will be actively working on getting someone sent to [facility] to interrogate PM. account retention representative also stated she will resend the transmission reports via fax. PA notified.
--- NOTE | 2021-07-07 12:29 | NUR ---
[employer] clinical specialist, Mian Jauregui, reported to nurse that someone will be there to interrogate the PM after 1500 today.
[2021-07-07] MEDS ORDERED: ondansetron 4mg rapidly disintigrating tab PO PRN (16:10)
[2021-07-07] MEDS ORDERED: sodium chloride 0.45% 1,000 ML IV SCH (16:50)
--- NOTE | 2021-07-07 18:38 | NUR ---
Rec'd report from SUSIE Parra
--- NOTE | 2021-07-07 19:04 | NUR ---
Patient is sitting on side of bed in no obvious distress with family at the bedside. I will continue to monitor.
[2021-07-07] MEDS ORDERED: amiodarone 200mg tablet PO SCH ×2 (20:00)
[2021-07-07] MEDS: insulin glargine (Lantus) pen - multi-dose SQ SCH (21:00)
--- NOTE | 2021-07-07 22:07 | NUR ---
Patient is wanting to leave AMA, I have given him the cons of leaving AMA and he still wants to go. I sent Dr. Landry a page and will prepare the patient for discharge.
--- NOTE | 2021-07-07 22:33 | NUR ---
Dr. Landry spoke with the patient and he is aware of possible consequences of leaving AMA not to exclude . He was advised to call his telegraph dispatcher in the morning. Patient left via wheelchair with .
[2021-07-07 22:51] VITALS: BP 113/65
== END 2021-07-07 23:01 | disposition left against medical advice (07) | DRG 308 ==
LOC: ER 14:12 → UNDOADMIN 17:10 → ED HOLD 17:10
PROVIDERS: ADMIT Family Medicine; ATTEND Family Medicine
PROC: 4B02XTZ Measurement of Cardiac Defibrillator, External Approach (ICD-10-PCS; principal; 2021-07-07)
DX: I47.2 Ventricular tachycardia (principal); I50.23 Acute on chronic systolic (congestive) heart failure; I13.0 Hypertensive heart and chronic kidney disease with heart failure and stage 1 through stage 4 chronic kidney disease, or unspecified chronic kidney disease; N17.9 Acute kidney failure, unspecified; I42.0 Dilated cardiomyopathy; I47.1 Supraventricular tachycardia; E87.5 Hyperkalemia; Z53.29 Procedure and treatment not carried out because of patient's decision for other reasons; E11.51 Type 2 diabetes mellitus with diabetic peripheral angiopathy without gangrene; F12.90 Cannabis use, unspecified, uncomplicated; I95.1 Orthostatic hypotension; I48.91 Unspecified atrial fibrillation; J44.9 Chronic obstructive pulmonary disease, unspecified; K76.1 Chronic passive congestion of liver; N18.32 Chronic kidney disease, stage 3b; G47.33 Obstructive sleep apnea (adult) (pediatric); K72.90 Hepatic failure, unspecified without coma; E11.22 Type 2 diabetes mellitus with diabetic chronic kidney disease; E78.5 Hyperlipidemia, unspecified; R74.01 Elevation of levels of liver transaminase levels; Z95.810 Presence of automatic (implantable) cardiac defibrillator; Z82.49 Family history of ischemic heart disease and other diseases of the circulatory system; Z87.891 Personal history of nicotine dependence; Z79.899 Other long term (current) drug therapy; Z79.4 Long term (current) use of insulin; Z86.718 Personal history of other venous thrombosis and embolism; Z79.01 Long term (current) use of anticoagulants
CPT/HCPCS: 36415; 71045; 76770; 80053; 82948; 83036; 83735; 83880; 84443; 84484; 85025; 93005; 93308; 94760; 96365; 96375; 99291; 99292; G0378; J1250; J1815; J1940; J2270; J3475; J7030

== ENCOUNTER 2021-07-14 10:06 | Inpatient (IN) | payer MEDICARE ==
[~2021-07-14] VITALS: Ht 177.8 cm; Wt 91.9 kg
[~2021-07-14 10:06] MED LIST changes: -HYDR-3972 PO; +INSU100V9 PO; -LANTUS SQ; +POTA-207 PO; -POTA20TA19 PO; +epiNEPHrine 0.1mg/ml 10ml syringe ONE; +sodium bicarbonate (8.4%) 1 mEq/ml syringe ONE
[2021-07-14] MEDS ORDERED: normal saline 1000ml 1,000 ML IV ONE (10:30)
[2021-07-14 10:58] LABS: BASOPHILS # (AUTO) 0.1 X10'3 (0-0.2); BASOPHILS % (AUTO) 0.6 % (0-1); EOSINOPHILS # (AUTO) 0.4 X10'3 (0-0.9); EOSINOPHILS % (AUTO) 2.3 % (0-6); HEMATOCRIT 45.6 % (42.0-52.0); HEMOGLOBIN 15.1 g/dl (14.0-17.9); LYMPHOCYTES # (AUTO) 1.5 X10'3 (1.1-4.8); LYMPHOCYTES % (AUTO) 8.7 % (21-51); MEAN CORPUSCULAR HEMOGLOBIN 29.8 PG (27.0-31.0); MEAN CORPUSCULAR HGB CONC 33.2 g/dL (33.0-36.5); MEAN CORPUSCULAR VOLUME 89.8 FL (78-98); MONOCYTES # (AUTO) 1.4 X10'3 (0-0.9); MONOCYTES % (AUTO) 8.4 % (2-12); NEUTROPHILS # (AUTO) 13.7 X10'3 (1.8-7.7); PLATELET COUNT 276 X10'3 (140-440); RED BLOOD COUNT 5.07 X10'6 (4.70-6.10); RED CELL DISTRIBUTION WIDTH 15.4 % (11.5-14.5); WHITE BLOOD COUNT 17.1 X10'3 (4.5-11.0)
[2021-07-14 11:08] LABS: D-DIMER 1.86 MG/L FEU (0-0.50); PARTIAL THROMBOPLASTIN TIME 32 SECONDS (22-32)
[2021-07-14 11:21] LABS: CLARITY,URINE SLIGHTLY CLOUDY (Clear); COLOR,URINE YELLOW (Yellow); GLUCOSE, URINE NEGATIVE (Neg); KETONES,URINE NEGATIVE (Neg); LEUKOCYTE ESTERASE ,URINE NEGATIVE (Neg); NITRITES, URINE NEGATIVE (Neg); OCCULT BLOOD,URINE MODERATE (Neg); PROTEIN,URINE TRACE mg/dl (Neg); UA COLLECTION TYPE CLN CATCH MIDSTREAM
[2021-07-14] MEDS ORDERED: vancomycin/NS 1 GM ADD-VANTAGE 250 ML IV ONE (11:25)
[2021-07-14] MEDS ORDERED: normal saline 1000ML IV soln IV ONE (11:25)
[2021-07-14 11:27] LABS: ALANINE AMINOTRANSFERASE 58 U/L (12-78); ALBUMIN 2.5 G/DL (3.4-5.0); ALBUMIN/GLOBULIN RATIO 0.5 (1.1-1.5); ALKALINE PHOSPHATASE 133 IU/L (46-116); ANION GAP 5 (8-16); ASPARTATE AMINO TRANSFERASE 29 U/L (10-37); BILIRUBIN,TOTAL 1.4 MG/DL (0.1-1.0); BLOOD UREA NITROGEN 50 MG/DL (7-18); BUN/CREATININE RATIO 27.2 (5.4-32.0); C-REACTIVE PROTEIN 11.92 MG/DL (0.0-0.5); CALCIUM 9.3 MG/DL (8.5-10.1); CHLORIDE 93 MMOL/L (99-107); CREATININE 1.84 MG/DL (0.60-1.10); GLUCOSE 195 MG/DL (70-104); MAGNESIUM 2.3 MG/DL (1.5-2.4); SODIUM 135 MMOL/L (135-145); TOTAL PROTEIN 7.7 G/DL (6.4-8.2); eGFR 38 ML/MIN
[2021-07-14 11:31] LABS: POTASSIUM 2.9 MMOL/L (3.5-5.1)
--- NOTE | 2021-07-14 11:32 | NUR ---
Verbal order given to increase NS infusion to 100 ml/hr and hold 2000 ml bolus for now per Dr. Leo
--- NOTE | 2021-07-14 11:32 | NUR ---
made aware of K level of 2.9
[2021-07-14 11:41] LABS: HYALINE CASTS 0-3 /LPF (NEGATIVE); RBC,URINE 20-50 /HPF (0-2); SQUAMOUS EPITHELIAL CELL,UR FEW /LPF (FEW); WBC,URINE 0-4 /HPF (0-4)
[2021-07-14 11:42] LABS: BACTERIA,URINE FEW /HPF (Neg)
--- NOTE | 2021-07-14 11:42 | NUR ---
Lab at bedside, bld cx drawn
[2021-07-14] MEDS ORDERED: ondansetron/PF 4mg/2ml inj IV PRN (12:00)
[2021-07-14] MEDS ORDERED: magnesium Cl slow-release 64mg tablet PO PRN (12:00)
[2021-07-14] MEDS ORDERED: magnesium 2GM in 50ml NS 50 ML IV PRN (12:00)
[2021-07-14] MEDS ORDERED: mag hydrox/Alum hydrox/simeth 30ml oral suspension PO PRN (12:00)
[2021-07-14] MEDS ORDERED: potassium Cl 20 mEq SR tablet PO PRN (12:00)
[2021-07-14] MEDS ORDERED: potassium Cl 40MEQ/1/2NS 520ml 520 ML IV PRN ×2 (12:00)
[2021-07-14] MEDS ORDERED: acetaminophen 325mg tablet PO PRN (12:00)
[2021-07-14] MEDS ORDERED: magnesium 4gm in 100ml NS 100 ML IV PRN (12:00)
[2021-07-14] MEDS ORDERED: PERFLUTREN PROTEIN-A MICROSPHR (Optison) 0.22 MG/ML 3ML VIAL IV ONE (12:00)
[2021-07-14] MEDS ORDERED: glucagon, human recombinant 1mg kit SUBCUT PRN (12:15)
[2021-07-14] MEDS ORDERED: dextrose 50%-water 50ml dispensing syringe IV PRN ×2 (12:15)
[2021-07-14] MEDS ORDERED: dextrose ORAL solution 15 GM/59 ML bottle PO PRN ×2 (12:15)
[2021-07-14] MEDS ORDERED: MESSAGE TO PHARMACY PO ONE (12:15)
[2021-07-14] MEDS: potassium CL 10mEq/100ml bag 100 ML IV SCH ×3 (12:24→14:23)
--- NOTE | 2021-07-14 14:34 | NUR ---
LUNCH MEAL TRAY GIVEN TO PT
[2021-07-14] MEDS: furosemide 10 MG/1 ML 10ml inj IV SCH (15:01)
[2021-07-14] MEDS: potassium cl 20mEq in 1/2 NS 1,000 ML IV SCH ×2 (15:01→22:00)
--- NOTE | 2021-07-14 15:22 | NUR ---
Report given to Myrtle RN ext [phone]
[2021-07-14] MEDS: HYDROcodone/acetaminophen 5mg/325mg tablet PO PRN (16:53)
[2021-07-14] MEDS: potassium Cl 20 mEq SR tablet PO PRN ×2 (18:02→22:34)
[2021-07-14 18:57] VITALS: BP 131/80
--- NOTE | 2021-07-14 19:02 | NUR ---
patient admitted from ED to pcu at 17.30 . patient was alert and oriented x 4 with stable vital signs. patient has one PIV on the left AC . patient has a wound vac on the right lower extremities. patient is oriented to room and equipment . pt demonstrate how to use a call esquivel
[2021-07-14] MEDS: K and/or MAG REPLACEMENT MC SCH (20:00)
[2021-07-14] MEDS: docusate sod 100mg capsule PO SCH (20:00)
[2021-07-14] MEDS ORDERED: furosemide 20MG tablet PO SCH (20:00)
[2021-07-14] MEDS: carVEDilol 12.5mg tablet PO SCH (20:12)
[2021-07-14] MEDS: rivaroxaban 20mg tablet PO SCH (20:13)
[2021-07-14] MEDS: insulin Lispro (HumaLOG) vial - multi-dose SQ SCH (20:23)
[2021-07-14] MEDS: insulin glargine (Lantus) pen - multi-dose SQ SCH ×2 (21:00)
[2021-07-14 22:00] VITALS: BP 114/46
[2021-07-14] MEDS: vancomycin/NS 1 GM ADD-VANTAGE 250 ML X 1 DOSE IV SCH (22:34)
[2021-07-15] MEDS: piperacillin/tazo 3.375gm/50ml 50 ML IV SCH ×3 (03:43→17:29)
[2021-07-15] MEDS: morphine 2 MG/ML inj. syringe IV PRN ×2 (04:09→17:29)
--- NOTE | 2021-07-15 05:49 | NUR ---
Wound vac removed per MD order, wet to dry bandage applied, pt is happy about wound vac removal.
[2021-07-15 06:00] VITALS: BP 131/64
--- NOTE | 2021-07-15 06:21 | NUR ---
Problems reprioritized. Patient report given, questions answered & plan of care reviewed with Jose Antonio-SUSIE.
[2021-07-15 06:52] LABS: BASOPHILS # (AUTO) 0.1 X10'3 (0-0.2); BASOPHILS % (AUTO) 0.4 % (0-1); EOSINOPHILS # (AUTO) 0.3 X10'3 (0-0.9); EOSINOPHILS % (AUTO) 1.5 % (0-6); HEMATOCRIT 41.5 % (42.0-52.0); HEMOGLOBIN 13.5 g/dl (14.0-17.9); LYMPHOCYTES # (AUTO) 1.3 X10'3 (1.1-4.8); LYMPHOCYTES % (AUTO) 7.5 % (21-51); MEAN CORPUSCULAR HEMOGLOBIN 29.3 PG (27.0-31.0); MEAN CORPUSCULAR HGB CONC 32.6 g/dL (33.0-36.5); MEAN CORPUSCULAR VOLUME 89.9 FL (78-98); MEAN PLATELET VOLUME 8.3 FL (7.4-10.4); MONOCYTES # (AUTO) 1.5 X10'3 (0-0.9); MONOCYTES % (AUTO) 9.1 % (2-12); NEUTROPHILS # (AUTO) 13.8 X10'3 (1.8-7.7); NEUTROPHILS % (AUTO) 81.5 % (42-75); PLATELET COUNT 263 X10'3 (140-440); RED BLOOD COUNT 4.61 X10'6 (4.70-6.10); RED CELL DISTRIBUTION WIDTH 15.4 % (11.5-14.5); WHITE BLOOD COUNT 16.9 X10'3 (4.5-11.0)
[2021-07-15 07:27] LABS: ALANINE AMINOTRANSFERASE 46 U/L (12-78); ALBUMIN 2.2 G/DL (3.4-5.0); ALBUMIN/GLOBULIN RATIO 0.5 (1.1-1.5); ALKALINE PHOSPHATASE 142 IU/L (46-116); ANION GAP 11 (8-16); ASPARTATE AMINO TRANSFERASE 34 U/L (10-37); BILIRUBIN,TOTAL 1.5 MG/DL (0.1-1.0); BLOOD UREA NITROGEN 44 MG/DL (7-18); BUN/CREATININE RATIO 30.8 (5.4-32.0); CALCIUM 8.9 MG/DL (8.5-10.1); CHLORIDE 96 MMOL/L (99-107); CHOL/HDL RATIO 3.1 (0.00-4.99); CHOLESTEROL 135 MG/DL (0-200); CREATININE 1.43 MG/DL (0.60-1.10); GLUCOSE 98 MG/DL (70-104); HDL CHOLESTEROL 43 MG/DL (35-60); LDL CHOLESTEROL 77 MG/DL (50-100); POTASSIUM 3.1 MMOL/L (3.5-5.1); SODIUM 135 MMOL/L (135-145); TOTAL CARBON DIOXIDE 28.5 MMOL/L (24-32); TRIGLYCERIDES 61 MG/DL (20-135); eGFR 50 ML/MIN
[2021-07-15] MEDS: furosemide 10 MG/1 ML 10ml inj IV SCH (07:43)
[2021-07-15] MEDS: carVEDilol 12.5mg tablet PO SCH ×2 (07:44→20:22)
[2021-07-15] MEDS: losartan 50mg tablet PO SCH (07:44)
[2021-07-15] MEDS: docusate sod 100mg capsule PO SCH ×2 (07:44→20:28)
[2021-07-15] MEDS ORDERED: enoxaparin 40mg/0.4ml syringe SUBCUT SCH (08:00)
[2021-07-15] MEDS: HYDROcodone/acetaminophen 5mg/325mg tablet PO PRN (09:06)
[2021-07-15] MEDS: metolazone 2.5mg tablet PO SCH (09:07)
[2021-07-15] MEDS: potassium Cl 20 mEq SR tablet PO SCH ×2 (09:07→20:23)
[2021-07-15] MEDS: potassium cl 20mEq in 1/2 NS 1,000 ML IV SCH (09:11)
[2021-07-15] MEDS ORDERED: iohexol 300mg/ml 100ml inj. ONE (10:06)
[2021-07-15 11:00] VITALS: BP 120/64
[2021-07-15] MEDS ORDERED: vancomycin/NS 1 GM ADD-VANTAGE 250 ML X 1 DOSE IV SCH (11:00)
[2021-07-15] MEDS: potassium Cl 20 mEq SR tablet PO PRN ×2 (12:32→15:02)
[2021-07-15] MEDS: vancomycin/NS 1 GM ADD-VANTAGE 250 ML X 1 DOSE IV SCH ×2 (12:32→23:00)
[2021-07-15] MEDS: insulin Lispro (HumaLOG) vial - multi-dose SQ SCH ×3 (13:36→22:29)
[2021-07-15 15:00] VITALS: BP 135/75
[2021-07-15 18:00] VITALS: BP 130/70
[2021-07-15] MEDS: K and/or MAG REPLACEMENT MC SCH (20:00)
[2021-07-15] MEDS: rivaroxaban 20mg tablet PO SCH (20:23)
[2021-07-15] MEDS: lactobacillus rhamnosus 10,000 MMU CELLS/CAPSULE PO SCH (20:29)
[2021-07-15] MEDS: insulin glargine (Lantus) pen - multi-dose SQ SCH ×2 (21:00→22:27)
[2021-07-15] MEDS ORDERED: VANCOMYCIN LEVEL IV ONE (22:30)
--- NOTE | 2021-07-15 23:46 | NUR ---
.Dr Johnston notified of Vancomycin level of 20.9; verbal hold evening dose and recheck level in the morning
[2021-07-16] MEDS: potassium cl 20mEq in 1/2 NS 1,000 ML IV SCH ×3 (00:13→13:05)
[2021-07-16] MEDS: piperacillin/tazo 3.375gm/50ml 50 ML IV SCH ×3 (00:15→15:50)
[2021-07-16] MEDS: potassium Cl 20 mEq SR tablet PO SCH ×2 (00:20→08:29)
[2021-07-16] MEDS: morphine 2 MG/ML inj. syringe IV PRN ×3 (03:49→12:12)
[2021-07-16 04:05] VITALS: BP 115/76
--- NOTE | 2021-07-16 05:11 | NUR ---
Wound care done.
[2021-07-16 06:00] VITALS: BP 116/76
--- NOTE | 2021-07-16 06:44 | NUR ---
Patient in room PCU 3013. I have received report from Regi RICHARDS and had the opportunity to ask questions and assume patient care.
[2021-07-16 07:11] LABS: BASOPHILS # (AUTO) 0.1 X10'3 (0-0.2); BASOPHILS % (AUTO) 0.7 % (0-1); EOSINOPHILS # (AUTO) 0.5 X10'3 (0-0.9); EOSINOPHILS % (AUTO) 2.9 % (0-6); HEMATOCRIT 38.8 % (42.0-52.0); HEMOGLOBIN 12.7 g/dl (14.0-17.9); LYMPHOCYTES # (AUTO) 1.5 X10'3 (1.1-4.8); LYMPHOCYTES % (AUTO) 9.1 % (21-51); MEAN CORPUSCULAR HEMOGLOBIN 29.5 PG (27.0-31.0); MEAN CORPUSCULAR HGB CONC 32.7 g/dL (33.0-36.5); MEAN CORPUSCULAR VOLUME 90.2 FL (78-98); MEAN PLATELET VOLUME 8.4 FL (7.4-10.4); MONOCYTES # (AUTO) 1.8 X10'3 (0-0.9); MONOCYTES % (AUTO) 10.7 % (2-12); NEUTROPHILS # (AUTO) 12.7 X10'3 (1.8-7.7); NEUTROPHILS % (AUTO) 76.6 % (42-75); PLATELET COUNT 308 X10'3 (140-440); RED CELL DISTRIBUTION WIDTH 15.5 % (11.5-14.5); WHITE BLOOD COUNT 16.5 X10'3 (4.5-11.0)
[2021-07-16 07:58] LABS: ALANINE AMINOTRANSFERASE 40 U/L (12-78); ALBUMIN 2.1 G/DL (3.4-5.0); ALBUMIN/GLOBULIN RATIO 0.5 (1.1-1.5); ALKALINE PHOSPHATASE 152 IU/L (46-116); ANION GAP 7 (8-16); ASPARTATE AMINO TRANSFERASE 32 U/L (10-37); BILIRUBIN,TOTAL 1.2 MG/DL (0.1-1.0); BLOOD UREA NITROGEN 39 MG/DL (7-18); BUN/CREATININE RATIO 26.7 (5.4-32.0); CALCIUM 8.7 MG/DL (8.5-10.1); CHLORIDE 99 MMOL/L (99-107); CREATININE 1.46 MG/DL (0.60-1.10); GLUCOSE 109 MG/DL (70-104); MAGNESIUM 1.9 MG/DL (1.5-2.4); POTASSIUM 3.6 MMOL/L (3.5-5.1); SODIUM 134 MMOL/L (135-145); TOTAL CARBON DIOXIDE 27.8 MMOL/L (24-32); TOTAL PROTEIN 6.7 G/DL (6.4-8.2); eGFR 49 ML/MIN
[2021-07-16] MEDS: K and/or MAG REPLACEMENT MC SCH ×2 (08:00→20:00)
[2021-07-16] MEDS: furosemide 10 MG/1 ML 10ml inj IV SCH (08:16)
[2021-07-16] MEDS: carVEDilol 12.5mg tablet PO SCH ×2 (08:28→19:56)
[2021-07-16] MEDS: lactobacillus rhamnosus 10,000 MMU CELLS/CAPSULE PO SCH ×2 (08:29→19:56)
[2021-07-16] MEDS: losartan 50mg tablet PO SCH (08:29)
[2021-07-16] MEDS: docusate sod 100mg capsule PO SCH ×2 (08:29→19:57)
[2021-07-16] MEDS: metolazone 2.5mg tablet PO SCH (08:30)
[2021-07-16] MEDS: insulin Lispro (HumaLOG) vial - multi-dose SQ SCH ×2 (10:35→22:41)
[2021-07-16] MEDS: HYDROcodone/acetaminophen 5mg/325mg tablet PO PRN ×3 (10:41→19:57)
[2021-07-16 11:00] VITALS: BP 111/70
[2021-07-16] MEDS: vancomycin inj. 750 MG in normal saline 250ml IV soln 250 ML IV SCH (13:05)
[2021-07-16 18:00] VITALS: BP 107/51
--- NOTE | 2021-07-16 18:33 | NUR ---
Problems reprioritized. Patient report given, questions answered & plan of care reviewed with Tammy RICHARDS .
[2021-07-16] MEDS: rivaroxaban 20mg tablet PO SCH (19:57)
[2021-07-16] MEDS: insulin glargine (Lantus) pen - multi-dose SQ SCH ×2 (21:00→22:39)
[2021-07-16 22:00] VITALS: BP 106/52
[2021-07-17] VITALS (18 sets, daily range): BP systolic 79–136; BP diastolic 50–84
[2021-07-17] MEDS: vancomycin inj. 750 MG in normal saline 250ml IV soln 250 ML IV SCH ×2 (00:50→12:58)
[2021-07-17] MEDS: piperacillin/tazo 3.375gm/50ml 50 ML IV SCH ×3 (00:50→16:17)
[2021-07-17] MEDS: potassium cl 20mEq in 1/2 NS 1,000 ML IV SCH ×3 (03:55→21:26)
--- NOTE | 2021-07-17 06:08 | NUR ---
Patient in room PCU 3013. I have received report from SUSIE Munoz and had the opportunity to ask questions and assume patient care.
[2021-07-17 06:20] LABS: BASOPHILS # (AUTO) 0.1 X10'3 (0-0.2); BASOPHILS % (AUTO) 0.7 % (0-1); EOSINOPHILS # (AUTO) 0.6 X10'3 (0-0.9); EOSINOPHILS % (AUTO) 3.5 % (0-6); HEMATOCRIT 36.9 % (42.0-52.0); HEMOGLOBIN 12.3 g/dl (14.0-17.9); LYMPHOCYTES # (AUTO) 1.5 X10'3 (1.1-4.8); LYMPHOCYTES % (AUTO) 8.4 % (21-51); MEAN CORPUSCULAR HEMOGLOBIN 29.9 PG (27.0-31.0); MEAN CORPUSCULAR HGB CONC 33.2 g/dL (33.0-36.5); MONOCYTES # (AUTO) 1.5 X10'3 (0-0.9); MONOCYTES % (AUTO) 8.4 % (2-12); NEUTROPHILS # (AUTO) 14.1 X10'3 (1.8-7.7); PLATELET COUNT 329 X10'3 (140-440); RED CELL DISTRIBUTION WIDTH 15.1 % (11.5-14.5); WHITE BLOOD COUNT 17.8 X10'3 (4.5-11.0)
--- NOTE | 2021-07-17 06:23 | NUR ---
Problems reprioritized. Patient report given, questions answered & plan of care reviewed with Jeanette.
--- NOTE | 2021-07-17 07:23 | NUR ---
Dr Charles called Dr. charles called and ordered CT no contrast of right leg STAT. "this must be done before 9am, before surgery" per .
[2021-07-17 07:37] LABS: ALANINE AMINOTRANSFERASE 37 U/L (12-78); ALBUMIN/GLOBULIN RATIO 0.4 (1.1-1.5); ALKALINE PHOSPHATASE 153 IU/L (46-116); ANION GAP 10 (8-16); ASPARTATE AMINO TRANSFERASE 30 U/L (10-37); BILIRUBIN,TOTAL 1.1 MG/DL (0.1-1.0); BLOOD UREA NITROGEN 37 MG/DL (7-18); BUN/CREATININE RATIO 25.9 (5.4-32.0); CALCIUM 8.9 MG/DL (8.5-10.1); CHLORIDE 100 MMOL/L (99-107); CREATININE 1.43 MG/DL (0.60-1.10); GLUCOSE 93 MG/DL (70-104); POTASSIUM 3.5 MMOL/L (3.5-5.1); SODIUM 137 MMOL/L (135-145); TOTAL CARBON DIOXIDE 27.5 MMOL/L (24-32); TOTAL PROTEIN 6.7 G/DL (6.4-8.2); eGFR 50 ML/MIN
[2021-07-17] MEDS ORDERED: morphine 4 MG/ML inj SYRINge IV PRN (07:40)
[2021-07-17] MEDS ORDERED: hydrALAZINE 20mg/ml inj. IV PRN (07:40)
[2021-07-17] MEDS ORDERED: fentaNYL/PF 50MCG/1 ML 2ML syringe IV PRN ×2 (07:40)
[2021-07-17] MEDS ORDERED: ringers solution, lacted 1,000 ML IV SCH (07:40)
[2021-07-17] MEDS ORDERED: enalaprilat dihydrate 2.5mg/2ml vial IV PRN (07:40)
[2021-07-17] MEDS ORDERED: morphine 2 MG/ML inj. syringe IV PRN (07:40)
[2021-07-17] MEDS ORDERED: ondansetron/PF 4mg/2ml inj IV PRN (07:40)
[2021-07-17] MEDS: docusate sod 100mg capsule PO SCH ×2 (08:00→20:22)
[2021-07-17] MEDS: lactobacillus rhamnosus 10,000 MMU CELLS/CAPSULE PO SCH ×2 (08:00→20:22)
[2021-07-17] MEDS: Dakins solution (1/4 strength) 473ml solution TP SCH (08:00)
[2021-07-17] MEDS: furosemide 10 MG/1 ML 10ml inj IV SCH (08:00)
[2021-07-17] MEDS: K and/or MAG REPLACEMENT MC SCH ×2 (08:00→20:00)
[2021-07-17] MEDS: morphine 2 MG/ML inj. syringe IV PRN ×2 (08:02→12:30)
[2021-07-17] MEDS: carVEDilol 12.5mg tablet PO SCH ×2 (08:04→20:22)
[2021-07-17] MEDS: metolazone 2.5mg tablet PO SCH (08:04)
[2021-07-17] MEDS: losartan 50mg tablet PO SCH (08:05)
[2021-07-17] MEDS ORDERED: midazolam 1 mg/ML 2ml injection ONE (09:49)
[2021-07-17] MEDS ORDERED: fentaNYL/PF 50MCG/1 ML 2ML syringe ONE (09:49)
[2021-07-17] MEDS ORDERED: albumin (Human) 5% 250ml 250 ML IV ONE (09:50)
[2021-07-17] MEDS ORDERED: etomidate 2mg/ml inj. ONE (09:50)
--- NOTE | 2021-07-17 11:05 | NUR ---
Patient arrived via hospital bed. Responds to verbal stimuli, knows where he is but starts ripping off oxygen, BP cuff and oxygen probe. 18G to Left AC and 20G to RUE. RLE dressing CDI.
--- NOTE | 2021-07-17 11:33 | NUR ---
1100 VS not obtained, patient in OR
[2021-07-17] MEDS ORDERED: DOBUTamine-DoBUTrex 500mg/D5W 250 ML IV SCH (11:40)
--- NOTE | 2021-07-17 11:45 | NUR ---
Patient report given to Jeanette, primary RN. Patient chux changed, dressing has some serosang at distal end of dressing. Patient urinated in urinal. Patient knows what city he is in but not the month. He continues to act impulsive, which is relayed to Jeanette.
[2021-07-17] MEDS ORDERED: normal saline 500ml IV soln 500 ML IV ONE (12:00)
--- NOTE | 2021-07-17 12:03 | NUR ---
Patient returned from OR s/p surgical debridement with low BP and c/o pain. Notified Dr Landry of bp and requested orders: PAGER ID: [phone] MESSAGE: Annalisa Kennedy 3013B pt hypotensive s/p sx debridement. 82/55 (63 MAP). Any orders? Jeanette [phone]
--- NOTE | 2021-07-17 13:40 | NUR ---
Initial: Pt admitted w/ RLE cellulitis, underwent I&D today per EMR. Noted current A1C 9.6, down from 11.1 from last 06/16/21. Pt seen by ANIYA for written and verbal DM education last admission. Pt currently on Heart Healthy diet eating mostly 75-100% of meals meeting needs. Discussed w/ RN to add CCHO to diet order if MD agreeable. LBM 07/14 receiving routine colace. Will continue to monitor and make recommendations as appropriate. Recs: 1. Continue Heart Healthy diet as tolerated, add CCHO if MD agreeable 2. Bowel care per rx 3. Weekly wts Addendum: 07/17/21 at [address] Amended: Links added.
[2021-07-17] MEDS ORDERED: HYDROmorphone inj. 0.5 MG/0.5 ML DISP.SYRIN IV ONE (13:45)
--- NOTE | 2021-07-17 18:23 | NUR ---
Problems reprioritized. Patient report given, questions answered & plan of care reviewed with SUSIE Munoz.
[2021-07-17] MEDS: rivaroxaban 20mg tablet PO SCH (20:22)
[2021-07-17] MEDS: HYDROcodone/acetaminophen 5mg/325mg tablet PO PRN (20:22)
[2021-07-17] MEDS: insulin glargine (Lantus) pen - multi-dose SQ SCH ×2 (21:00→21:29)
[2021-07-17] MEDS ORDERED: VANCOMYCIN LEVEL IV ONE (23:30)
[2021-07-18] MEDS: HYDROcodone/acetaminophen 5mg/325mg tablet PO PRN ×2 (00:36→10:05)
[2021-07-18] MEDS: piperacillin/tazo 3.375gm/50ml 50 ML IV SCH ×3 (00:36→16:39)
[2021-07-18] MEDS: vancomycin inj. 750 MG in normal saline 250ml IV soln 250 ML IV SCH ×2 (00:36→12:48)
[2021-07-18 02:00] VITALS: BP 100/60
[2021-07-18] MEDS: potassium cl 20mEq in 1/2 NS 1,000 ML IV SCH ×3 (05:52→23:11)
--- NOTE | 2021-07-18 06:16 | NUR ---
Patient in room PCU 3013. I have received report from SUSIE Munoz and had the opportunity to ask questions and assume patient care.
--- NOTE | 2021-07-18 06:26 | NUR ---
Problems reprioritized. Patient report given, questions answered & plan of care reviewed with Jeanette RICHARDS.
[2021-07-18 06:31] LABS: BASOPHILS # (AUTO) 0.1 X10'3 (0-0.2); BASOPHILS % (AUTO) 0.7 % (0-1); EOSINOPHILS # (AUTO) 0.6 X10'3 (0-0.9); EOSINOPHILS % (AUTO) 3.5 % (0-6); HEMOGLOBIN 10.9 g/dl (14.0-17.9); LYMPHOCYTES # (AUTO) 1.6 X10'3 (1.1-4.8); LYMPHOCYTES % (AUTO) 9.9 % (21-51); MEAN CORPUSCULAR HEMOGLOBIN 29.8 PG (27.0-31.0); MEAN CORPUSCULAR HGB CONC 33.1 g/dL (33.0-36.5); MEAN CORPUSCULAR VOLUME 90.1 FL (78-98); MEAN PLATELET VOLUME 8.1 FL (7.4-10.4); MONOCYTES # (AUTO) 1.8 X10'3 (0-0.9); MONOCYTES % (AUTO) 10.9 % (2-12); NEUTROPHILS # (AUTO) 12.1 X10'3 (1.8-7.7); PLATELET COUNT 359 X10'3 (140-440); RED BLOOD COUNT 3.66 X10'6 (4.70-6.10); RED CELL DISTRIBUTION WIDTH 14.7 % (11.5-14.5); WHITE BLOOD COUNT 16.2 X10'3 (4.5-11.0)
[2021-07-18 06:52] LABS: ALANINE AMINOTRANSFERASE 30 U/L (12-78); ALBUMIN 1.9 G/DL (3.4-5.0); ALBUMIN/GLOBULIN RATIO 0.4 (1.1-1.5); ALKALINE PHOSPHATASE 172 IU/L (46-116); ANION GAP 7 (8-16); ASPARTATE AMINO TRANSFERASE 21 U/L (10-37); BILIRUBIN,TOTAL 0.7 MG/DL (0.1-1.0); BLOOD UREA NITROGEN 33 MG/DL (7-18); BUN/CREATININE RATIO 20.9 (5.4-32.0); CALCIUM 8.2 MG/DL (8.5-10.1); CHLORIDE 99 MMOL/L (99-107); CREATININE 1.58 MG/DL (0.60-1.10); GLUCOSE 154 MG/DL (70-104); MAGNESIUM 1.9 MG/DL (1.5-2.4); POTASSIUM 3.1 MMOL/L (3.5-5.1); SODIUM 135 MMOL/L (135-145); TOTAL CARBON DIOXIDE 29.1 MMOL/L (24-32); TOTAL PROTEIN 6.2 G/DL (6.4-8.2); eGFR 45 ML/MIN
[2021-07-18] MEDS ORDERED: potassium Cl 40MEQ/1/2NS 520ml 520 ML IV PRN ×2 (07:25)
[2021-07-18] MEDS ORDERED: potassium Cl 20 mEq SR tablet PO PRN ×2 (07:25)
[2021-07-18 07:28] VITALS: BP 124/77
[2021-07-18] MEDS: potassium Cl 20 mEq SR tablet PO SCH (07:36)
[2021-07-18] MEDS: lactobacillus rhamnosus 10,000 MMU CELLS/CAPSULE PO SCH ×2 (07:36→20:18)
[2021-07-18] MEDS: carVEDilol 12.5mg tablet PO SCH (07:37)
[2021-07-18] MEDS: docusate sod 100mg capsule PO SCH ×2 (07:37→20:18)
[2021-07-18] MEDS: morphine 2 MG/ML inj. syringe IV PRN ×3 (07:38→20:31)
[2021-07-18] MEDS: K and/or MAG REPLACEMENT MC SCH ×4 (08:00→20:00)
[2021-07-18] MEDS: Dakins solution (1/4 strength) 473ml solution TP SCH (08:00)
--- NOTE | 2021-07-18 10:11 | NUR ---
Paged Dr Landry re pt meds: PAGER ID: [phone] MESSAGE: Brent Fang [id number] says Dr Morton office called her to rx sotalol 80 mg 1 tab PO BID x90 days. Would you like to start that here? Jeanette [phone]
[2021-07-18 11:00] VITALS: BP 107/65
[2021-07-18] MEDS: HYDROcodone/acetaminophen 10/325mg tab PO PRN ×2 (11:23→23:22)
[2021-07-18] MEDS: insulin Lispro (HumaLOG) vial - multi-dose SQ SCH ×2 (13:47→20:17)
[2021-07-18 15:00] VITALS: BP 108/57
--- NOTE | 2021-07-18 17:34 | NUR ---
ASKED BY PRIMARY RN TO CHECK BLOOD SUGAR 65 PRIMARY RN AWARE AND WILL ADDRESS
--- NOTE | 2021-07-18 17:44 | NUR ---
patient with 65 capillary blood glucose as obtained by another RN. Patient denies symptoms of low blood sugar and declines liquid glucose, opting instead for a box of juice and a cheese stick, immediately followed by his dinner tray. Monitoring per unit and hyper/hypoglycemic protocol.
[2021-07-18 18:00] VITALS: BP 109/58
--- NOTE | 2021-07-18 18:09 | NUR ---
Blood sugar up to 97 from previous low of 65. Pt still appearing stable and continuing to eat dinner. Will continue to monitor per unit protocol.
--- NOTE | 2021-07-18 18:25 | NUR ---
Patient in room PCU 3013. I have received report from SUSIE Reid and had the opportunity to ask questions and assume patient care.
--- NOTE | 2021-07-18 18:32 | NUR ---
Problems reprioritized. Patient report given, questions answered & plan of care reviewed with SUSIE Perkins and SUSIE Cabral.
--- NOTE | 2021-07-18 18:42 | NUR ---
Patient in room PCU 3013. I have received report from SUSIE Reid and had the opportunity to ask questions and assume patient care.
[2021-07-18] MEDS: sotalol 80mg tablet PO SCH (20:18)
[2021-07-18] MEDS: rivaroxaban 20mg tablet PO SCH (20:18)
[2021-07-18] MEDS: insulin glargine (Lantus) pen - multi-dose SQ SCH ×2 (21:00→23:17)
[2021-07-18 22:00] VITALS: BP 127/57
[2021-07-19] MEDS: piperacillin/tazo 3.375gm/50ml 50 ML IV SCH ×4 (01:07→23:43)
[2021-07-19 02:00] VITALS: BP 146/81
[2021-07-19 06:00] VITALS: BP 148/88
--- NOTE | 2021-07-19 06:19 | NUR ---
Problems reprioritized. Patient report given, questions answered & plan of care reviewed with SUSIE Reid.
--- NOTE | 2021-07-19 06:20 | NUR ---
I agree with SUSIE Cabral, documentation, assessments, and report given to SUSIE Reid
--- NOTE | 2021-07-19 06:23 | NUR ---
Patient in room PCU 3013. I have received report from Gregorio RN and SUSIE Cabral and had the opportunity to ask questions and assume patient care.
[2021-07-19] MEDS: morphine 2 MG/ML inj. syringe IV PRN ×4 (06:48→20:11)
[2021-07-19 07:16] LABS: BASOPHILS # (AUTO) 0.2 X10'3 (0-0.2); BASOPHILS % (AUTO) 1.1 % (0-1); EOSINOPHILS # (AUTO) 0.6 X10'3 (0-0.9); EOSINOPHILS % (AUTO) 3.3 % (0-6); HEMATOCRIT 33.3 % (42.0-52.0); HEMOGLOBIN 11.2 g/dl (14.0-17.9); LYMPHOCYTES # (AUTO) 1.6 X10'3 (1.1-4.8); LYMPHOCYTES % (AUTO) 9.1 % (21-51); MEAN CORPUSCULAR HEMOGLOBIN 29.8 PG (27.0-31.0); MEAN CORPUSCULAR HGB CONC 33.6 g/dL (33.0-36.5); MEAN CORPUSCULAR VOLUME 88.7 FL (78-98); MONOCYTES # (AUTO) 1.7 X10'3 (0-0.9); MONOCYTES % (AUTO) 9.9 % (2-12); NEUTROPHILS # (AUTO) 13.4 X10'3 (1.8-7.7); NEUTROPHILS % (AUTO) 76.6 % (42-75); PLATELET COUNT 416 X10'3 (140-440); RED BLOOD COUNT 3.75 X10'6 (4.70-6.10); RED CELL DISTRIBUTION WIDTH 15.2 % (11.5-14.5); WHITE BLOOD COUNT 17.5 X10'3 (4.5-11.0)
[2021-07-19 07:36] LABS: ALANINE AMINOTRANSFERASE 29 U/L (12-78); ALBUMIN 2.1 G/DL (3.4-5.0); ALBUMIN/GLOBULIN RATIO 0.4 (1.1-1.5); ALKALINE PHOSPHATASE 156 IU/L (46-116); ANION GAP 4 (8-16); BILIRUBIN,TOTAL 0.9 MG/DL (0.1-1.0); BLOOD UREA NITROGEN 22 MG/DL (7-18); BUN/CREATININE RATIO 16.2 (5.4-32.0); CALCIUM 8.7 MG/DL (8.5-10.1); CHLORIDE 97 MMOL/L (99-107); CREATININE 1.36 MG/DL (0.60-1.10); GLUCOSE 71 MG/DL (70-104); MAGNESIUM 1.9 MG/DL (1.5-2.4); SODIUM 128 MMOL/L (135-145); TOTAL CARBON DIOXIDE 27.5 MMOL/L (24-32); TOTAL PROTEIN 6.8 G/DL (6.4-8.2); eGFR 53 ML/MIN
[2021-07-19 07:37] LABS: ASPARTATE AMINO TRANSFERASE 33 U/L (10-37); POTASSIUM 4.1 MMOL/L (3.5-5.1)
[2021-07-19] MEDS: K and/or MAG REPLACEMENT MC SCH ×4 (08:00→20:00)
[2021-07-19] MEDS: Dakins solution (1/4 strength) 473ml solution TP SCH (08:00)
[2021-07-19] MEDS: lactobacillus rhamnosus 10,000 MMU CELLS/CAPSULE PO SCH ×2 (08:32→19:45)
[2021-07-19] MEDS: sotalol 80mg tablet PO SCH ×2 (08:32→19:44)
[2021-07-19] MEDS: docusate sod 100mg capsule PO SCH ×3 (08:32→19:48)
[2021-07-19] MEDS: potassium Cl 20 mEq SR tablet PO SCH (08:32)
[2021-07-19] MEDS: HYDROcodone/acetaminophen 10/325mg tab PO PRN ×2 (08:33→14:07)
--- NOTE | 2021-07-19 09:05 | NUR ---
Paged Dr Landry re: pt sodium level: PAGER ID: [phone] MESSAGE: Annalisa Kennedy [phone] Na is 128. On 20 mEQ K+ in 1/2 NS @100/hr. continue? Jeanette [phone]
[2021-07-19] MEDS: insulin Lispro (HumaLOG) vial - multi-dose SQ SCH ×2 (10:58→14:10)
[2021-07-19 11:00] VITALS: BP 113/52
[2021-07-19] MEDS: normal saline 1000ml 1,000 ML IV SCH (11:25)
[2021-07-19 15:00] VITALS: BP 128/55
[2021-07-19] MEDS ORDERED: ondansetron 4mg rapidly disintigrating tab PO PRN (16:45)
[2021-07-19 18:00] VITALS: BP 137/79
[2021-07-19] MEDS: rivaroxaban 20mg tablet PO SCH (19:45)
[2021-07-19] MEDS: insulin glargine (Lantus) pen - multi-dose SQ SCH ×2 (21:00→21:16)
--- NOTE | 2021-07-19 21:45 | NUR ---
Mimi CHINO regarding patient 2100 dose of Lovenox. Patient AM blood glucose of 73 and 2100 blood glucose of 143. Instructed to hold Lantus dose of 12 units.
[2021-07-20 02:00] VITALS: BP 144/76
--- NOTE | 2021-07-20 02:30 | NUR ---
Dressing change to RLE performed per order. Kerlix, ABD pad, and tasha wrap applied to extremity. Dakins saturated kerlix applied to wound. Patient C/O discomfort during procedure. Pain medication administered per order.
[2021-07-20] MEDS: morphine 2 MG/ML inj. syringe IV PRN ×4 (02:37→20:20)
--- NOTE | 2021-07-20 05:21 | NUR ---
patient in bed resting at this time. VSS throughout shift. patient aware of plan of care. dressing changed performed per order. pain medication administered per order for discomfort. call light and personal belongings placed within reach. instructed to call for assistance. Report given to charge nurse.
[2021-07-20 06:25] LABS: MAGNESIUM 2.4 MG/DL (1.5-2.4)
[2021-07-20 07:00] VITALS: BP 138/83
--- NOTE | 2021-07-20 07:35 | NUR ---
Patient in room PCU 3013. I have received a written report from Mariela RN, no opportunity to ask questions because RN left shift early
[2021-07-20] MEDS: docusate sod 100mg capsule PO SCH ×2 (08:00→20:11)
[2021-07-20] MEDS: K and/or MAG REPLACEMENT MC SCH ×3 (08:00→20:00)
[2021-07-20] MEDS: Dakins solution (1/4 strength) 473ml solution TP SCH (08:00)
[2021-07-20] MEDS: piperacillin/tazo 3.375gm/50ml 50 ML IV SCH ×2 (08:58→16:58)
[2021-07-20] MEDS: lactobacillus rhamnosus 10,000 MMU CELLS/CAPSULE PO SCH ×2 (08:59→20:11)
[2021-07-20] MEDS: sotalol 80mg tablet PO SCH ×2 (08:59→20:11)
[2021-07-20] MEDS: potassium Cl 20 mEq SR tablet PO SCH (09:00)
[2021-07-20 09:51] LABS: ALBUMIN 1.8 G/DL (3.4-5.0); ANION GAP 7 (8-16); BLOOD UREA NITROGEN 23 MG/DL (7-18); BUN/CREATININE RATIO 16.5 (5.4-32.0); CALCIUM 8.6 MG/DL (8.5-10.1); CHLORIDE 98 MMOL/L (99-107); CREATININE 1.39 MG/DL (0.60-1.10); GLUCOSE 124 MG/DL (70-104); POTASSIUM 3.9 MMOL/L (3.5-5.1); SODIUM 131 MMOL/L (135-145); eGFR 52 ML/MIN
[2021-07-20 10:06] LABS: BASOPHILS # (AUTO) 0.1 X10'3 (0-0.2); BASOPHILS % (AUTO) 0.9 % (0-1); EOSINOPHILS # (AUTO) 0.6 X10'3 (0-0.9); EOSINOPHILS % (AUTO) 3.6 % (0-6); HEMOGLOBIN 10.9 g/dl (14.0-17.9); LYMPHOCYTES # (AUTO) 1.9 X10'3 (1.1-4.8); MEAN CORPUSCULAR HEMOGLOBIN 29.5 PG (27.0-31.0); MEAN CORPUSCULAR HGB CONC 33.1 g/dL (33.0-36.5); MEAN CORPUSCULAR VOLUME 89.2 FL (78-98); MEAN PLATELET VOLUME 7.9 FL (7.4-10.4); MONOCYTES # (AUTO) 2.2 X10'3 (0-0.9); MONOCYTES % (AUTO) 12.7 % (2-12); NEUTROPHILS # (AUTO) 12.2 X10'3 (1.8-7.7); NEUTROPHILS % (AUTO) 71.8 % (42-75); PLATELET COUNT 415 X10'3 (140-440)
[2021-07-20 11:00] VITALS: BP 128/66
[2021-07-20 11:07] LABS: TOTAL CELLS COUNTED 100
[2021-07-20 11:08] LABS: PLATELET ESTIMATE NORMAL; POLYCHROMASIA FEW; TOXIC GRANULATION 1+
[2021-07-20] MEDS: HYDROcodone/acetaminophen 10/325mg tab PO PRN (15:15)
[2021-07-20] MEDS: rivaroxaban 20mg tablet PO SCH (16:58)
--- NOTE | 2021-07-20 18:30 | NUR ---
Problems reprioritized. Patient report given, questions answered & plan of care reviewed with Alex RICHARDS.
--- NOTE | 2021-07-20 18:57 | NUR ---
Patient in room PCU 3013. I have received report from Marianna RICHARDS and had the opportunity to ask questions and assume patient care.
[2021-07-20] MEDS: insulin Lispro (HumaLOG) vial - multi-dose SQ SCH (20:18)
[2021-07-20 20:30] VITALS: BP 137/84
[2021-07-20] MEDS: insulin glargine (Lantus) pen - multi-dose SQ SCH (21:00)
[2021-07-21] MEDS: piperacillin/tazo 3.375gm/50ml 50 ML IV SCH ×3 (00:16→19:36)
[2021-07-21] MEDS: morphine 2 MG/ML inj. syringe IV PRN ×4 (00:20→21:23)
[2021-07-21] MEDS: insulin glargine (Lantus) pen - multi-dose SQ SCH ×3 (00:39→21:21)
--- NOTE | 2021-07-21 06:47 | NUR ---
Problems reprioritized. Patient report given, questions answered & plan of care reviewed with Meghana RICHARDS.
[2021-07-21] MEDS: docusate sod 100mg capsule PO SCH ×3 (08:00→19:36)
[2021-07-21] MEDS: Dakins solution (1/4 strength) 473ml solution TP SCH (08:00)
[2021-07-21] MEDS: sotalol 80mg tablet PO SCH ×2 (08:30→19:36)
[2021-07-21] MEDS: potassium Cl 20 mEq SR tablet PO SCH (08:30)
[2021-07-21] MEDS: lactobacillus rhamnosus 10,000 MMU CELLS/CAPSULE PO SCH ×2 (08:30→19:36)
[2021-07-21] MEDS: HYDROcodone/acetaminophen 10/325mg tab PO PRN ×2 (10:40→17:50)
[2021-07-21 11:00] VITALS: BP 106/73
--- NOTE | 2021-07-21 17:20 | NUR ---
Wound care note: Received consult for leg wound. Patient is going to the OR with Dr. Charles for surgical intervention of the right leg. Wound care available if needed after surgery.
[2021-07-21 18:00] VITALS: BP 159/93
[2021-07-21] MEDS: rivaroxaban 20mg tablet PO SCH (18:00)
[2021-07-21 18:06] VITALS: BP 119/81
--- NOTE | 2021-07-21 18:31 | NUR ---
Problems reprioritized. Patient report given, questions answered & plan of care reviewed with
--- NOTE | 2021-07-21 19:06 | NUR ---
Patient in room PCU 3013. I have received report from Meghana RICHARDS and had the opportunity to ask questions and assume patient care.
[2021-07-21] MEDS: K and/or MAG REPLACEMENT MC SCH ×2 (19:16→19:20)
[2021-07-21] MEDS: normal saline 1000ml 1,000 ML IV SCH (19:38)
[2021-07-21 22:00] VITALS: BP 120/84
[2021-07-22] VITALS (22 sets, daily range): BP systolic 80–221; BP diastolic 39–117
[2021-07-22] MEDS: piperacillin/tazo 3.375gm/50ml 50 ML IV SCH ×3 (00:11→20:07)
--- NOTE | 2021-07-22 06:07 | NUR ---
Problems reprioritized. Patient report given, questions answered & plan of care reviewed with Melani RICHARDS.
[2021-07-22] MEDS: docusate sod 100mg capsule PO SCH ×2 (08:53→20:32)
[2021-07-22] MEDS: potassium Cl 20 mEq SR tablet PO SCH (08:53)
[2021-07-22] MEDS: HYDROcodone/acetaminophen 10/325mg tab PO PRN (08:54)
[2021-07-22 10:27] LABS: BASOPHILS # (AUTO) 0.2 X10'3 (0-0.2); BASOPHILS % (AUTO) 1.1 % (0-1); EOSINOPHILS # (AUTO) 0.5 X10'3 (0-0.9); EOSINOPHILS % (AUTO) 3.3 % (0-6); HEMATOCRIT 32.2 % (42.0-52.0); HEMOGLOBIN 10.5 g/dl (14.0-17.9); LYMPHOCYTES # (AUTO) 2.1 X10'3 (1.1-4.8); LYMPHOCYTES % (AUTO) 13.3 % (21-51); MEAN CORPUSCULAR HEMOGLOBIN 29.3 PG (27.0-31.0); MEAN CORPUSCULAR HGB CONC 32.6 g/dL (33.0-36.5); MEAN CORPUSCULAR VOLUME 89.9 FL (78-98); MEAN PLATELET VOLUME 7.5 FL (7.4-10.4); MONOCYTES # (AUTO) 1.6 X10'3 (0-0.9); NEUTROPHILS # (AUTO) 11.4 X10'3 (1.8-7.7); NEUTROPHILS % (AUTO) 72.3 % (42-75); PLATELET COUNT 465 X10'3 (140-440); RED BLOOD COUNT 3.58 X10'6 (4.70-6.10); RED CELL DISTRIBUTION WIDTH 15.2 % (11.5-14.5); WHITE BLOOD COUNT 15.7 X10'3 (4.5-11.0)
[2021-07-22 10:39] LABS: ALANINE AMINOTRANSFERASE 23 U/L (12-78); ALBUMIN/GLOBULIN RATIO 0.4 (1.1-1.5); ALKALINE PHOSPHATASE 147 IU/L (46-116); ANION GAP 8 (8-16); ASPARTATE AMINO TRANSFERASE 19 U/L (10-37); BILIRUBIN,TOTAL 0.4 MG/DL (0.1-1.0); BLOOD UREA NITROGEN 20 MG/DL (7-18); CALCIUM 8.9 MG/DL (8.5-10.1); CHLORIDE 104 MMOL/L (99-107); CREATININE 1.67 MG/DL (0.60-1.10); GLUCOSE 97 MG/DL (70-104); POTASSIUM 4.4 MMOL/L (3.5-5.1); SODIUM 140 MMOL/L (135-145); TOTAL CARBON DIOXIDE 27.7 MMOL/L (24-32); eGFR 42 ML/MIN
[2021-07-22 10:46] LABS: PARTIAL THROMBOPLASTIN TIME 25 SECONDS (22-32)
[2021-07-22] MEDS ORDERED: midazolam 1 mg/ML 2ml injection ONE ×2 (10:46→14:11)
[2021-07-22] MEDS ORDERED: ketamine 50mg/5ml syringe ONE (10:47)
[2021-07-22] MEDS ORDERED: cloNIDine hcl/PF 100mcg/ml inj ONE (10:49)
[2021-07-22] MEDS ORDERED: ondansetron/PF 4mg/2ml inj IV PRN ×2 (11:00→14:05)
[2021-07-22] MEDS ORDERED: proCHLORperazine 10 MG/2 ml inj IV PRN (11:00)
[2021-07-22] MEDS ORDERED: labetalol 20mg/4ml (5mg/ml) syringe IV PRN (11:00)
[2021-07-22] MEDS ORDERED: meperidine/PF 25mg/ml syringe IV PRN (11:00)
[2021-07-22] MEDS ORDERED: ringers solution, lacted 1,000 ML IV SCH (11:00)
[2021-07-22] MEDS ORDERED: morphine 2 MG/ML inj. syringe IV PRN (11:00)
[2021-07-22] MEDS ORDERED: HYDROmorphone/PF 0.2 MG/ML SYRINGE IV PRN (11:00)
[2021-07-22] MEDS ORDERED: acetaminophen 1,000mg/100ml IV 100 ML IV PRN (11:00)
[2021-07-22] MEDS ORDERED: hydrALAZINE 20mg/ml inj. IV PRN (11:00)
[2021-07-22] MEDS ORDERED: dexamethasone sod phosphate 4mg/ml inj. ONE (12:09)
[2021-07-22] MEDS ORDERED: LIDOcaine 1% (10mg/ml) 2ml vial ONE (12:09)
[2021-07-22] MEDS ORDERED: ROPIVAcaine 0.5% (5mg/ml) 30ml vial ONE (12:09)
[2021-07-22] MEDS ORDERED: rocuronium 10mg/ml inj IV ONE (12:09)
[2021-07-22] MEDS ORDERED: ondansetron/PF 4mg/2ml inj ONE (12:09)
[2021-07-22] MEDS ORDERED: LIDOcaine 1%/PF 5ML 10 MG/ML VIAL ONE ×2 (12:09)
[2021-07-22] MEDS ORDERED: phenylephrine 10mg/ml inj. ONE (12:14)
[2021-07-22] MEDS ORDERED: fentaNYL/PF 50MCG/1 ML 2ML syringe ONE (12:41)
[2021-07-22] MEDS ORDERED: neostigmine methylsulfate 1 MG/ML 10ml vial ONE (13:17)
--- NOTE | 2021-07-22 13:31 | NUR ---
PT NON RESPONSIVE ON ARRIVAL, [facility] CALLED DR SALDAÑA AND DR GILES AT BEDSIDE PT INTUBATED PER PROTOCOL, CONT TO MONITOR. Addendum: 07/22/21 at 1600 by Marianna Herring RN Amended: Links added.
[2021-07-22] MEDS ORDERED: HYDROcodone/acetaminophen 10/325mg tab PO PRN ×2 (14:05)
[2021-07-22] MEDS ORDERED: morphine 4 MG/ML inj SYRINge IV PRN ×2 (14:05)
[2021-07-22] MEDS ORDERED: naloxone 0.4 mg/ml inj IV PRN ×2 (14:05→17:55)
[2021-07-22] MEDS ORDERED: metoclopramide 5 mg/ml inj IV PRN (14:05)
[2021-07-22] MEDS ORDERED: CADD PCA waste documentation MC PRN ×2 (14:05→17:55)
[2021-07-22] MEDS ORDERED: fentaNYL/PF 50MCG/1 ML 2ML syringe IV PRN (14:10)
[2021-07-22] MEDS ORDERED: midazolam 1 mg/ML 2ml injection IV ONE (14:10)
--- NOTE | 2021-07-22 14:20 | NUR ---
DR GILES AT BEDSIDE CENTRAL LINE PLACED XRAY CALLED TO VERIFY PLACEMENT. PT RESTLESS TRYING TO PULL OUT ETT SEDATION STARTED PER PROTOCOL. Addendum: 07/22/21 at 1621 by Marianna Herring RN Amended: Links added.
[2021-07-22] MEDS: FENTANYL-0.9 % NACL/PF 100 ML IV PRN ×2 (14:30→17:52)
[2021-07-22] MEDS: midazolam 100mg in NS 100ml 100 ML IV PRN ×2 (14:30→17:50)
--- NOTE | 2021-07-22 16:00 | NUR ---
DR HAMPTON IN TO SEE PT UPDATED ON PT STATUS VERBAL TO START WEANING TRIAL RT CALLED. Addendum: 07/22/21 at 1612 by Marianna Herring RN Amended: Links added.
--- NOTE | 2021-07-22 16:14 | NUR ---
[facility] NOTIFIED FOR ICU BED, WAITING FOR A BED TO TRANSFER PT. Addendum: 07/22/21 at 1615 by Marianna Herring RN Amended: Links added.
--- NOTE | 2021-07-22 16:19 | NUR ---
RT AT BEDSIDE TO ATTEMPT WEANING PROTOCOL, PT SEDATIVE, STABLE ALL SEDATION TURNED OFF RT WILL BE BACK TO ATTEMPT, NO OTHER CHANGES. Addendum: 07/22/21 at 1620 by Marianna Herring RN Amended: Links added.
[2021-07-22 16:28] LABS: CLARITY,URINE SLIGHTLY CLOUDY (Clear); COLOR,URINE YELLOW (Yellow); GLUCOSE, URINE NEGATIVE (Neg); KETONES,URINE NEGATIVE (Neg); OCCULT BLOOD,URINE MODERATE (Neg); PH,URINE 6.5 (4.8-8.0); PROTEIN,URINE 300 mg/dl (Neg); UA COLLECTION TYPE FOLEY CATH
[2021-07-22 16:29] LABS: LEUKOCYTE ESTERASE ,URINE NEGATIVE (Neg); NITRITES, URINE NEGATIVE (Neg); UROBILINOGEN,URINE 0.2 E.U/dL (0.2-1.0)
[2021-07-22 16:31] LABS: BACTERIA,URINE NONE SEEN /HPF (Neg)
[2021-07-22 16:32] LABS: FINE GRANULAR CAST 0-3 /LPF (NEGATIVE); MUCUS STRANDS NONE SEEN /LPF (Neg); SQUAMOUS EPITHELIAL CELL,UR FEW /LPF (FEW)
[2021-07-22 16:33] LABS: COARSE GRANULAR CAST 0-3 /LPF (NEGATIVE)
[2021-07-22 16:48] LABS: BASOPHILS # (AUTO) 0.2 X10'3 (0-0.2); BASOPHILS % (AUTO) 0.9 % (0-1); EOSINOPHILS # (AUTO) 0.6 X10'3 (0-0.9); EOSINOPHILS % (AUTO) 2.5 % (0-6); HEMATOCRIT 33.6 % (42.0-52.0); HEMOGLOBIN 10.7 g/dl (14.0-17.9); LYMPHOCYTES # (AUTO) 4.3 X10'3 (1.1-4.8); LYMPHOCYTES % (AUTO) 18.5 % (21-51); MEAN CORPUSCULAR HEMOGLOBIN 29.4 PG (27.0-31.0); MEAN CORPUSCULAR HGB CONC 31.7 g/dL (33.0-36.5); MEAN CORPUSCULAR VOLUME 92.8 FL (78-98); MEAN PLATELET VOLUME 8.3 FL (7.4-10.4); MONOCYTES # (AUTO) 1.7 X10'3 (0-0.9); MONOCYTES % (AUTO) 7.5 % (2-12); NEUTROPHILS # (AUTO) 16.4 X10'3 (1.8-7.7); NEUTROPHILS % (AUTO) 70.6 % (42-75); PLATELET COUNT 561 X10'3 (140-440); RED BLOOD COUNT 3.63 X10'6 (4.70-6.10); RED CELL DISTRIBUTION WIDTH 15.5 % (11.5-14.5); WHITE BLOOD COUNT 23.2 X10'3 (4.5-11.0)
[2021-07-22 16:55] LABS: ALANINE AMINOTRANSFERASE 40 U/L (12-78); ALBUMIN 1.8 G/DL (3.4-5.0); ALBUMIN/GLOBULIN RATIO 0.3 (1.1-1.5); ALKALINE PHOSPHATASE 151 IU/L (46-116); ANION GAP 12 (8-16); ASPARTATE AMINO TRANSFERASE 46 U/L (10-37); BILIRUBIN,TOTAL 0.4 MG/DL (0.1-1.0); BLOOD UREA NITROGEN 21 MG/DL (7-18); BUN/CREATININE RATIO 11.5 (5.4-32.0); CHLORIDE 106 MMOL/L (99-107); CREATININE 1.83 MG/DL (0.60-1.10); GLUCOSE 180 MG/DL (70-104); POTASSIUM 5.3 MMOL/L (3.5-5.1); SODIUM 143 MMOL/L (135-145); TOTAL CARBON DIOXIDE 25.3 MMOL/L (24-32); eGFR 38 ML/MIN
--- NOTE | 2021-07-22 17:13 | NUR ---
Patient went for surgery at noon, and coded during his recovery. David was transferred to the ICU. His belongings were picked up by his .
--- NOTE | 2021-07-22 17:46 | NUR ---
CARYN LUIS KUNZ [phone] Addendum: 07/22/21 at 1746 by Khadijah Arnold RN RN Amended: Links added.
[2021-07-22] MEDS ORDERED: ipratropium/albuterol 3ml nebule NEB PRN (17:55)
[2021-07-22] MEDS ORDERED: racepinephrine 11.25mg/0.5ml nebule NEB PRN (17:55)
--- NOTE | 2021-07-22 17:55 | NUR ---
FENTANYL AND MIDAZOLAM DRIPS STARTED AT 1430, DISREGARD IV SPREAD SHEET, PER DR HAMPTON, HE WOULD LIKE TO TRY TO EXTABATE PT. FENTANYL AND MIDAZOLAM DRIPS STOPPED AT 1630. Addendum: 07/22/21 at 1757 by Khadijah Arnold RN, RN Amended: Links added.
[2021-07-22 18:06] LABS: PARTIAL THROMBOPLASTIN TIME 24 SECONDS (22-32)
--- NOTE | 2021-07-22 19:01 | NUR ---
PT EXTUBATED BY RT PER DR HAMPTON'S ORDERS., PT SPO2 94% 3L, PT SITTING UP IN BED TALKING AND CHEWING ON ICE CHIPS. PT AT BEDSIDE. Addendum: 07/22/21 at 1950 by Khadijah Arnold RN, RN Amended: Links added.
--- NOTE | 2021-07-22 19:01 | NUR ---
Report called to receiving nurse ANGELA RICHARDS. Transferred via HOSPITAL BED ON PORTABLE MONITOR TO ROOM 2047. Belongings IN PT PREVIOUS ROOM 3013B. ARTEMIO RICHARDS AT BESIDE TO NOELLE PT, PT'S VSS STABLE. Special Issues communicated to receiving nurse. Addendum: 07/22/21 at 1953 by Khadijah Arnold RN RN Amended: Links added.
--- NOTE | 2021-07-22 19:05 | NUR ---
Patient out of OR and now in room ICU 2046. I have received report from mold yard crane operator and had the opportunity to ask questions and assume patient care.
[2021-07-22 19:23] LABS: TOTAL CELLS COUNTED 100
[2021-07-22 19:24] LABS: PLATELET ESTIMATE INCREASED; TOXIC GRANULATION 1+
[2021-07-22 19:25] LABS: POLYCHROMASIA FEW
[2021-07-22] MEDS: K and/or MAG REPLACEMENT MC SCH ×2 (20:00→20:03)
[2021-07-22] MEDS: sotalol 80mg tablet PO SCH ×2 (20:03→20:38)
[2021-07-22] MEDS: lactobacillus rhamnosus 10,000 MMU CELLS/CAPSULE PO SCH ×2 (20:03→20:32)
[2021-07-22] MEDS: Dakins solution (1/4 strength) 473ml solution TP SCH (20:04)
[2021-07-22] MEDS: ceFAZolin inj. 1,000 MG in dextrose 5%-water 50ml 50 ML IV SCH (20:06)
[2021-07-22] MEDS: rivaroxaban 20mg tablet PO SCH (20:12)
[2021-07-22] MEDS: gabapentin 300mg capsule PO SCH (20:32)
[2021-07-22] MEDS: HYDROmorph./NS 0.2 mg/ml CADD 100 ML IV SCH ×2 (20:57→23:00)
[2021-07-22] MEDS: insulin glargine (Lantus) pen - multi-dose SQ SCH ×2 (20:59→21:00)
[2021-07-22] MEDS: ipratropium/albuterol 3ml nebule NEB SCH (21:01)
[2021-07-23] VITALS (19 sets, daily range): BP systolic 98–160; BP diastolic 63–94
[2021-07-23] MEDS: ceFAZolin inj. 1,000 MG in dextrose 5%-water 50ml 50 ML IV SCH (00:52)
[2021-07-23] MEDS: HYDROmorph./NS 0.2 mg/ml CADD 100 ML IV SCH ×12 (01:00→23:00)
[2021-07-23] MEDS: piperacillin/tazo 3.375gm/50ml 50 ML IV SCH ×3 (01:43→16:55)
[2021-07-23 03:20] LABS: BASOPHILS % (AUTO) 0.1 % (0-1); EOSINOPHILS % (AUTO) 0 % (0-6); HEMATOCRIT 30.5 % (42.0-52.0); LYMPHOCYTES # (AUTO) 1.2 X10'3 (1.1-4.8); LYMPHOCYTES % (AUTO) 6.8 % (21-51); MEAN CORPUSCULAR HEMOGLOBIN 29.4 PG (27.0-31.0); MEAN CORPUSCULAR VOLUME 89.2 FL (78-98); MEAN PLATELET VOLUME 7.5 FL (7.4-10.4); MONOCYTES # (AUTO) 0.9 X10'3 (0-0.9); MONOCYTES % (AUTO) 5.1 % (2-12); NEUTROPHILS # (AUTO) 15.2 X10'3 (1.8-7.7); PLATELET COUNT 481 X10'3 (140-440); RED BLOOD COUNT 3.42 X10'6 (4.70-6.10); RED CELL DISTRIBUTION WIDTH 15.1 % (11.5-14.5); WHITE BLOOD COUNT 17.3 X10'3 (4.5-11.0)
[2021-07-23 03:40] LABS: ALANINE AMINOTRANSFERASE 35 U/L (12-78); ALBUMIN 1.8 G/DL (3.4-5.0); ALBUMIN/GLOBULIN RATIO 0.4 (1.1-1.5); ALKALINE PHOSPHATASE 188 IU/L (46-116); ANION GAP 7 (8-16); ASPARTATE AMINO TRANSFERASE 47 U/L (10-37); BILIRUBIN,TOTAL 0.3 MG/DL (0.1-1.0); BLOOD UREA NITROGEN 25 MG/DL (7-18); CALCIUM 8.2 MG/DL (8.5-10.1); CHLORIDE 105 MMOL/L (99-107); CREATININE 1.56 MG/DL (0.60-1.10); GLUCOSE 169 MG/DL (70-104); POTASSIUM 4.5 MMOL/L (3.5-5.1); SODIUM 140 MMOL/L (135-145); TOTAL CARBON DIOXIDE 27.6 MMOL/L (24-32); TOTAL PROTEIN 6.8 G/DL (6.4-8.2); eGFR 45 ML/MIN
[2021-07-23] MEDS: ipratropium/albuterol 3ml nebule NEB SCH ×4 (03:53→19:19)
--- NOTE | 2021-07-23 06:30 | NUR ---
Patient in room ICU 2046. I have received report from Katty RICHARDS and had the opportunity to ask questions and assume patient care.
--- NOTE | 2021-07-23 07:00 | NUR ---
Pt awake and asking for water Positive bowel sounds noted c/o of pain 8/10 right aka Instructed on use of cadd pump o2 2l/min sat 99 % See assessment VSS
[2021-07-23] MEDS: K and/or MAG REPLACEMENT MC SCH ×2 (07:57→20:00)
[2021-07-23] MEDS: potassium Cl 20 mEq SR tablet PO SCH ×2 (08:00→08:17)
[2021-07-23] MEDS: docusate sod 100mg capsule PO SCH ×2 (08:00→20:11)
--- NOTE | 2021-07-23 08:10 | NUR ---
Report given to Margarita RN status unchg
[2021-07-23] MEDS: lactobacillus rhamnosus 10,000 MMU CELLS/CAPSULE PO SCH ×2 (08:16→20:11)
[2021-07-23] MEDS: gabapentin 300mg capsule PO SCH ×2 (08:17→20:12)
[2021-07-23] MEDS: sotalol 80mg tablet PO SCH ×2 (08:17→20:11)
[2021-07-23] MEDS: Dakins solution (1/4 strength) 473ml solution TP SCH (08:18)
--- NOTE | 2021-07-23 10:00 | NUR ---
Took care over from Margarita RICHARDS Pt states pain level down to a three " reposit onto right side No skin issues noted on coccyx Spoke with wound care nurse regarding left heal and inc right groin
[2021-07-23] MEDS: normal saline 1000ml 1,000 ML IV SCH (11:25)
--- NOTE | 2021-07-23 12:33 | NUR ---
Reassessment: Pt underwent R AKA 07/22, code blue called in recovery and pt intubated though is now extubated. Pt was eating mostly 100% of meals prior to surgery, pt now on CCHO diet pending PO. Pt may benefit from Balbir Smoothie BID to aid w/ wound healing. [facility] 07/22 receiving routine colace. Will continue to monitor and make recommendations as appropriate. Recs: 1. Continue CCHO diet as tolerated. 2. Balbir smoothie BIDBD 3. Bowel care per rx 4. Weekly wts Addendum: 07/23/21 at [address] Amended: Links added.
--- NOTE | 2021-07-23 12:59 | NUR ---
Family at bedside PT working with PT VSS Assessment ungh left doppler pulses noted
--- NOTE | 2021-07-23 13:30 | NUR ---
Pt up to bedside chair with PT kevan fulton Ate 100 % of diet and covered for blood sugars Family at bedside NO c/o offered
[2021-07-23] MEDS: insulin Lispro (HumaLOG) vial - multi-dose SQ SCH (14:32)
--- NOTE | 2021-07-23 15:00 | NUR ---
Assisted back to bed with sit to stand and 2 RNs kevan well able to stand with min assist VSS A line removed Dr. Charles here with orders received
--- NOTE | 2021-07-23 17:00 | NUR ---
New IV started # 20 right arm without difficulty right upper arm IV d/c R central line d/c Pt with min pain complaints VSS Report to Bindu RICHARDS on tele unit Pt transported to room 3027 B with difficulty
--- NOTE | 2021-07-23 17:35 | NUR ---
RECEIVED PATIENT AND REPORT FROM ICU, AND PLACED PATIENT IN ROOM 3027B. HOB UP, BED LOW AND LOCKED. CALL LIGHT IN REACH. PATIENT USES DILAUDID CADD FOR PAIN . DRESSING TO RT ABOVE THE KNEE AMPUTATION INTACT,WITH SMALL , FIFTY CENT SIZE, AMT OF SEROUS DRAINAGE NOTED POSTERIORLY .ALERT AND ORIENTED. Addendum: 07/23/21 at 1940 by Tori Urban RN Amended: Links added.
[2021-07-23] MEDS: rivaroxaban 20mg tablet PO SCH (19:35)
[2021-07-23] MEDS ORDERED: mineral oil/petrolatum ophthal oint EACHEYE SCH (20:00)
[2021-07-23] MEDS: insulin glargine (Lantus) pen - multi-dose SQ SCH (22:34)
[2021-07-24] MEDS: piperacillin/tazo 3.375gm/50ml 50 ML IV SCH ×2 (00:16→08:41)
[2021-07-24] MEDS: HYDROmorph./NS 0.2 mg/ml CADD 100 ML IV SCH ×12 (01:00→23:00)
[2021-07-24 02:00] VITALS: BP 143/77
[2021-07-24] MEDS: normal saline 1000ml 1,000 ML IV SCH (02:34)
[2021-07-24] MEDS: ipratropium/albuterol 3ml nebule NEB SCH ×4 (03:10→19:41)
[2021-07-24 06:00] VITALS: BP 129/59
[2021-07-24 07:03] LABS: BASOPHILS # (AUTO) 0.1 X10'3 (0-0.2); BASOPHILS % (AUTO) 0.5 % (0-1); EOSINOPHILS # (AUTO) 0.2 X10'3 (0-0.9); EOSINOPHILS % (AUTO) 1.3 % (0-6); HEMATOCRIT 30.6 % (42.0-52.0); HEMOGLOBIN 10.2 g/dl (14.0-17.9); LYMPHOCYTES % (AUTO) 13.1 % (21-51); MEAN CORPUSCULAR HEMOGLOBIN 30.1 PG (27.0-31.0); MEAN CORPUSCULAR HGB CONC 33.3 g/dL (33.0-36.5); MEAN CORPUSCULAR VOLUME 90.5 FL (78-98); MEAN PLATELET VOLUME 7.3 FL (7.4-10.4); MONOCYTES # (AUTO) 1.4 X10'3 (0-0.9); MONOCYTES % (AUTO) 8.9 % (2-12); NEUTROPHILS # (AUTO) 11.8 X10'3 (1.8-7.7); NEUTROPHILS % (AUTO) 76.2 % (42-75); PLATELET COUNT 501 X10'3 (140-440); RED BLOOD COUNT 3.39 X10'6 (4.70-6.10); RED CELL DISTRIBUTION WIDTH 15.5 % (11.5-14.5); WHITE BLOOD COUNT 15.5 X10'3 (4.5-11.0)
[2021-07-24 07:20] LABS: ALANINE AMINOTRANSFERASE 24 U/L (12-78); ALBUMIN 1.9 G/DL (3.4-5.0); ALBUMIN/GLOBULIN RATIO 0.4 (1.1-1.5); ALKALINE PHOSPHATASE 131 IU/L (46-116); ANION GAP 3 (8-16); ASPARTATE AMINO TRANSFERASE 30 U/L (10-37); BILIRUBIN,TOTAL 0.3 MG/DL (0.1-1.0); BLOOD UREA NITROGEN 33 MG/DL (7-18); BUN/CREATININE RATIO 19.6 (5.4-32.0); CALCIUM 8.6 MG/DL (8.5-10.1); CHLORIDE 102 MMOL/L (99-107); CREATININE 1.68 MG/DL (0.60-1.10); GLUCOSE 102 MG/DL (70-104); POTASSIUM 4.2 MMOL/L (3.5-5.1); SODIUM 137 MMOL/L (135-145); TOTAL CARBON DIOXIDE 31.7 MMOL/L (24-32); TOTAL PROTEIN 6.8 G/DL (6.4-8.2); eGFR 42 ML/MIN
[2021-07-24] MEDS: K and/or MAG REPLACEMENT MC SCH ×2 (08:00→20:00)
[2021-07-24] MEDS: sotalol 80mg tablet PO SCH ×2 (08:24→20:34)
[2021-07-24] MEDS: potassium Cl 20 mEq SR tablet PO SCH (08:25)
[2021-07-24] MEDS: gabapentin 300mg capsule PO SCH (08:26)
[2021-07-24] MEDS: lactobacillus rhamnosus 10,000 MMU CELLS/CAPSULE PO SCH ×2 (08:31→20:34)
[2021-07-24] MEDS: docusate sod 100mg capsule PO SCH ×2 (08:40→20:34)
[2021-07-24] MEDS: insulin Lispro (HumaLOG) vial - multi-dose SQ SCH (08:59)
[2021-07-24 11:00] VITALS: BP 124/67
[2021-07-24 15:00] VITALS: BP 138/82
[2021-07-24] MEDS: rivaroxaban 20mg tablet PO SCH (17:41)
[2021-07-24 19:00] VITALS: BP 136/68
--- NOTE | 2021-07-24 19:00 | NUR ---
NO HUMALOG GIVEN FOR BG OF 170 AT 1700, BECAUSE PT JUST FINISHED LUNCH AT 1600. PER DAY SHIFT RN.
[2021-07-24] MEDS: insulin glargine (Lantus) pen - multi-dose SQ SCH (20:44)
[2021-07-25] MEDS: ipratropium/albuterol 3ml nebule NEB SCH ×4 (03:47→21:05)
[2021-07-25 06:00] VITALS: BP 143/93
[2021-07-25 06:56] LABS: BASOPHILS # (AUTO) 0.1 X10'3 (0-0.2); BASOPHILS % (AUTO) 0.7 % (0-1); EOSINOPHILS # (AUTO) 0.5 X10'3 (0-0.9); EOSINOPHILS % (AUTO) 3.4 % (0-6); HEMATOCRIT 28.9 % (42.0-52.0); HEMOGLOBIN 9.6 g/dl (14.0-17.9); LYMPHOCYTES # (AUTO) 2.1 X10'3 (1.1-4.8); MEAN CORPUSCULAR HEMOGLOBIN 29.9 PG (27.0-31.0); MEAN CORPUSCULAR HGB CONC 33.2 g/dL (33.0-36.5); MEAN CORPUSCULAR VOLUME 90.1 FL (78-98); MEAN PLATELET VOLUME 7.2 FL (7.4-10.4); MONOCYTES # (AUTO) 1.3 X10'3 (0-0.9); MONOCYTES % (AUTO) 8.7 % (2-12); NEUTROPHILS # (AUTO) 10.9 X10'3 (1.8-7.7); NEUTROPHILS % (AUTO) 73.2 % (42-75); PLATELET COUNT 462 X10'3 (140-440); RED BLOOD COUNT 3.21 X10'6 (4.70-6.10); RED CELL DISTRIBUTION WIDTH 15.6 % (11.5-14.5); WHITE BLOOD COUNT 14.9 X10'3 (4.5-11.0)
--- NOTE | 2021-07-25 06:59 | NUR ---
Patient in room PCU 3027. I have received report from denton freitas and had the opportunity to ask questions and assume patient care.
[2021-07-25] MEDS: HYDROmorph./NS 0.2 mg/ml CADD 100 ML IV SCH ×9 (07:00→23:00)
[2021-07-25 07:01] LABS: ALANINE AMINOTRANSFERASE 24 U/L (12-78); ALBUMIN 1.9 G/DL (3.4-5.0); ALBUMIN/GLOBULIN RATIO 0.4 (1.1-1.5); ALKALINE PHOSPHATASE 113 IU/L (46-116); ANION GAP 7 (8-16); ASPARTATE AMINO TRANSFERASE 22 U/L (10-37); BILIRUBIN,TOTAL 0.4 MG/DL (0.1-1.0); BLOOD UREA NITROGEN 28 MG/DL (7-18); BUN/CREATININE RATIO 19.9 (5.4-32.0); CALCIUM 8.3 MG/DL (8.5-10.1); CHLORIDE 104 MMOL/L (99-107); CREATININE 1.41 MG/DL (0.60-1.10); GLUCOSE 121 MG/DL (70-104); POTASSIUM 4.6 MMOL/L (3.5-5.1); SODIUM 140 MMOL/L (135-145); TOTAL CARBON DIOXIDE 29.2 MMOL/L (24-32); TOTAL PROTEIN 6.7 G/DL (6.4-8.2); eGFR 51 ML/MIN
[2021-07-25] MEDS: magnesium hydroxide 30ml (MOM) UD suspension PO PRN (07:54)
[2021-07-25] MEDS: lactobacillus rhamnosus 10,000 MMU CELLS/CAPSULE PO SCH ×2 (07:54→20:00)
[2021-07-25] MEDS: docusate sod 100mg capsule PO SCH ×2 (07:55→20:00)
[2021-07-25] MEDS: potassium Cl 20 mEq SR tablet PO SCH (07:56)
[2021-07-25] MEDS: sotalol 80mg tablet PO SCH ×2 (07:59→20:00)
[2021-07-25] MEDS: K and/or MAG REPLACEMENT MC SCH ×2 (08:00→20:00)
[2021-07-25] MEDS: insulin Lispro (HumaLOG) vial - multi-dose SQ SCH ×3 (09:21→19:21)
[2021-07-25 11:00] VITALS: BP 138/83
[2021-07-25] MEDS: normal saline 1000ml 1,000 ML IV SCH (11:25)
--- NOTE | 2021-07-25 16:24 | NUR ---
PAGER ID: [phone] MESSAGE: piotr freitas [phone] re: jesus Kennedy [phone]. pts BP 188/115 after taking two steps with pt. current bp 170/91 lying down. thank you
[2021-07-25 18:00] VITALS: BP 167/109
--- NOTE | 2021-07-25 18:15 | NUR ---
Patient in room PCU 3027. I have received report from Ophelia and had the opportunity to ask questions and assume patient care.
--- NOTE | 2021-07-25 18:15 | NUR ---
Patient in room PCU 3027. I have received report from SUSIE Jacinto and had the opportunity to ask questions and assume patient care.
[2021-07-25] MEDS: rivaroxaban 20mg tablet PO SCH (18:50)
--- NOTE | 2021-07-25 19:01 | NUR ---
Pt resting comfortable with at bedside. requesting copy of insulin protocol for home use, states pt is new diabetic, does not have MD. Will place CM order and advised pt to obtain primary care provider. Pt complains of burning chest pain /10. Advised to use CAD pump frequently until resolved. Will reassess. Checked with tele aid, pt in SR.
[2021-07-25] MEDS: carVEDilol 12.5mg tablet PO SCH (20:00)
[2021-07-25 22:00] VITALS: BP 181/97
[2021-07-25 22:01] VITALS: BP 147/84
[2021-07-25] MEDS: insulin glargine (Lantus) pen - multi-dose SQ SCH (22:17)
[2021-07-26] MEDS: HYDROmorph./NS 0.2 mg/ml CADD 100 ML IV SCH ×5 (01:00→09:00)
[2021-07-26 02:22] VITALS: BP 165/72
[2021-07-26] MEDS: ipratropium/albuterol 3ml nebule NEB SCH ×2 (03:35→09:07)
[2021-07-26 06:00] VITALS: BP 171/93
--- NOTE | 2021-07-26 06:15 | NUR ---
Problems reprioritized. Patient report given, questions answered & plan of care reviewed with SUSIE Jacinto.
--- NOTE | 2021-07-26 06:20 | NUR ---
Patient in room PCU 3027. I have received report from armani freitas and had the opportunity to ask questions and assume patient care.
[2021-07-26 06:27] LABS: BASOPHILS # (AUTO) 0.1 X10'3 (0-0.2); BASOPHILS % (AUTO) 0.6 % (0-1); EOSINOPHILS # (AUTO) 0.5 X10'3 (0-0.9); EOSINOPHILS % (AUTO) 3.1 % (0-6); HEMATOCRIT 29.3 % (42.0-52.0); HEMOGLOBIN 9.7 g/dl (14.0-17.9); LYMPHOCYTES # (AUTO) 2.2 X10'3 (1.1-4.8); LYMPHOCYTES % (AUTO) 14.2 % (21-51); MEAN CORPUSCULAR HEMOGLOBIN 29.5 PG (27.0-31.0); MEAN CORPUSCULAR VOLUME 89.4 FL (78-98); MEAN PLATELET VOLUME 7.4 FL (7.4-10.4); MONOCYTES # (AUTO) 0.9 X10'3 (0-0.9); MONOCYTES % (AUTO) 5.9 % (2-12); NEUTROPHILS # (AUTO) 11.8 X10'3 (1.8-7.7); NEUTROPHILS % (AUTO) 76.2 % (42-75); PLATELET COUNT 447 X10'3 (140-440); RED BLOOD COUNT 3.28 X10'6 (4.70-6.10); RED CELL DISTRIBUTION WIDTH 14.9 % (11.5-14.5); WHITE BLOOD COUNT 15.5 X10'3 (4.5-11.0)
[2021-07-26] MEDS: docusate sod 100mg capsule PO SCH (07:36)
[2021-07-26] MEDS: carVEDilol 12.5mg tablet PO SCH (07:36)
[2021-07-26] MEDS: potassium Cl 20 mEq SR tablet PO SCH (07:36)
[2021-07-26] MEDS: lactobacillus rhamnosus 10,000 MMU CELLS/CAPSULE PO SCH (07:36)
[2021-07-26] MEDS: sotalol 80mg tablet PO SCH (07:37)
[2021-07-26] MEDS: magnesium hydroxide 30ml (MOM) UD suspension PO PRN (07:37)
[2021-07-26] MEDS: K and/or MAG REPLACEMENT MC SCH (08:00)
[2021-07-26] MEDS ORDERED: losartan 50mg tablet PO SCH (08:00)
[2021-07-26] MEDS ORDERED: OXYC-150 PO (10:00)
[2021-07-26 11:00] VITALS: BP 163/82
[2021-07-26] MEDS ORDERED: CADD PCA waste documentation MC PRN (12:00)
--- NOTE | 2021-07-26 12:30 | NUR ---
pt discharged to home with . belongings sent with pt. iv's removed no complications. all questions reviewed/answered. pt discharged in stable condition.
== END 2021-07-26 12:35 | disposition home health service (06) | DRG 856 ==
LOC: ER 10:07 → ED HOLD 12:08 → PCU 3S 15:38 → ICU 2S 07-22 20:05 → PCU 3S 07-23 17:15
PROVIDERS: ADMIT Internal Medicine; ATTEND Internal Medicine
PROC: 5A09357 Assistance with Respiratory Ventilation, Less than 24 Consecutive Hours, Continuous Positive Airway Pressure (ICD-10-PCS; 2021-07-16)
PROC: 0JBN0ZZ Excision of Right Lower Leg Subcutaneous Tissue and Fascia, Open Approach (ICD-10-PCS; 2021-07-17)
PROC: 0KBS0ZZ Excision of Right Lower Leg Muscle, Open Approach (ICD-10-PCS; principal; 2021-07-17 09:40)
PROC: 0Y6C0Z3 Detachment at Right Upper Leg, Low, Open Approach (ICD-10-PCS; 2021-07-22)
PROC: 5A12012 Performance of Cardiac Output, Single, Manual (ICD-10-PCS; 2021-07-22)
PROC: 02HV33Z Insertion of Infusion Device into Superior Vena Cava, Percutaneous Approach (ICD-10-PCS; 2021-07-22)
PROC: B548ZZA Ultrasonography of Superior Vena Cava, Guidance (ICD-10-PCS; 2021-07-22)
DX: T81.40XA Infection following a procedure, unspecified, initial encounter (principal); A41.9 Sepsis, unspecified organism; N17.0 Acute kidney failure with tubular necrosis; G93.41 Metabolic encephalopathy; I21.4 Non-ST elevation (NSTEMI) myocardial infarction; I50.23 Acute on chronic systolic (congestive) heart failure; J96.00 Acute respiratory failure, unspecified whether with hypoxia or hypercapnia; I46.9 Cardiac arrest, cause unspecified; I13.0 Hypertensive heart and chronic kidney disease with heart failure and stage 1 through stage 4 chronic kidney disease, or unspecified chronic kidney disease; L03.115 Cellulitis of right lower limb; I42.0 Dilated cardiomyopathy; I47.2 Ventricular tachycardia; E78.5 Hyperlipidemia, unspecified; E87.6 Hypokalemia; Z20.822 Contact with and (suspected) exposure to COVID-19; E11.22 Type 2 diabetes mellitus with diabetic chronic kidney disease; E11.51 Type 2 diabetes mellitus with diabetic peripheral angiopathy without gangrene; F12.90 Cannabis use, unspecified, uncomplicated; F17.210 Nicotine dependence, cigarettes, uncomplicated; G47.30 Sleep apnea, unspecified; B96.5 Pseudomonas (aeruginosa) (mallei) (pseudomallei) as the cause of diseases classified elsewhere; I25.10 Atherosclerotic heart disease of native coronary artery without angina pectoris; Y83.8 Other surgical procedures as the cause of abnormal reaction of the patient, or of later complication, without mention of misadventure at the time of the procedure; I48.91 Unspecified atrial fibrillation; J44.9 Chronic obstructive pulmonary disease, unspecified; N18.30 Chronic kidney disease, stage 3 unspecified; B95.2 Enterococcus as the cause of diseases classified elsewhere; Z79.01 Long term (current) use of anticoagulants; Z82.49 Family history of ischemic heart disease and other diseases of the circulatory system; Z86.711 Personal history of pulmonary embolism; Z86.718 Personal history of other venous thrombosis and embolism; Z95.810 Presence of automatic (implantable) cardiac defibrillator; Z79.899 Other long term (current) drug therapy; Z79.4 Long term (current) use of insulin; Y92.89 Other specified places as the place of occurrence of the external cause
CPT/HCPCS: 36415; 36600; 71045; 73700; 80048; 80053; 80061; 80202; 81001; 82803; 82948; 83605; 83735; 83880; 84145; 84484; 85007; 85018; 85025; 85379; 85610; 85730; 86140; 86885; 86900; 86901; 86920; 87040; 87070; 87075; 87077; 87081; 87088; 87102; 87186; 87635; 88300; 88304; 93005; 94002; 94640; 94760; 96361; 96365; 97110; 97116; 97161; 97530; 97535; 99291; A4215; A4618; A6223; A6253; A6446; A6449; A6454; A7000; G0378; J0690; J0735; J1100; J1170; J1815; J1940; J2001; J2250; J2270; J2370; J2405; J2543; J2710; J2795; J3010; J3370; J3480; J7030; J7040; J7050; J7060; J7120; P9045; Q9967

== ENCOUNTER 2021-07-30 13:24 | Inpatient (IN) | payer MEDICARE ==
[~2021-07-30] VITALS: Ht 177.8 cm; Wt 90.9 kg
[~2021-07-30 13:24] MED LIST changes: +OXYC-150 PO; -epiNEPHrine 0.1mg/ml 10ml syringe ONE; -sodium bicarbonate (8.4%) 1 mEq/ml syringe ONE
[2021-07-30] MEDS ORDERED: normal saline 1000ML IV soln IVB ONE (13:35)
[2021-07-30 14:15] LABS: BASOPHILS # (AUTO) 0.1 X10'3 (0-0.2); MEAN PLATELET VOLUME 7.3 FL (7.4-10.4); MONOCYTES # (AUTO) 0.8 X10'3 (0-0.9); RED BLOOD COUNT 4.53 X10'6 (4.70-6.10)
[2021-07-30 14:16] LABS: BASOPHILS % (AUTO) 0.9 % (0-1); EOSINOPHILS # (AUTO) 0.3 X10'3 (0-0.9); HEMATOCRIT 40.3 % (42.0-52.0); HEMOGLOBIN 13.2 g/dl (14.0-17.9); LYMPHOCYTES # (AUTO) 1.7 X10'3 (1.1-4.8); LYMPHOCYTES % (AUTO) 13.2 % (21-51); MEAN CORPUSCULAR HEMOGLOBIN 29.2 PG (27.0-31.0); MEAN CORPUSCULAR HGB CONC 32.8 g/dL (33.0-36.5); MONOCYTES % (AUTO) 6.3 % (2-12); NEUTROPHILS # (AUTO) 9.8 X10'3 (1.8-7.7); NEUTROPHILS % (AUTO) 77.6 % (42-75); PLATELET COUNT 612 X10'3 (140-440); RED CELL DISTRIBUTION WIDTH 15.3 % (11.5-14.5); WHITE BLOOD COUNT 12.6 X10'3 (4.5-11.0)
[2021-07-30 14:24] LABS: D-DIMER 1.91 MG/L FEU (0-0.50)
[2021-07-30 14:26] LABS: ALANINE AMINOTRANSFERASE 35 U/L (12-78); ALBUMIN 2.8 G/DL (3.4-5.0); ALBUMIN/GLOBULIN RATIO 0.5 (1.1-1.5); ALKALINE PHOSPHATASE 113 IU/L (46-116); ANION GAP 7 (8-16); ASPARTATE AMINO TRANSFERASE 27 U/L (10-37); BILIRUBIN,TOTAL 0.5 MG/DL (0.1-1.0); BLOOD UREA NITROGEN 44 MG/DL (7-18); BUN/CREATININE RATIO 21.1 (5.4-32.0); CALCIUM 9.7 MG/DL (8.5-10.1); CHLORIDE 94 MMOL/L (99-107); CREATININE 2.09 MG/DL (0.60-1.10); GLUCOSE 158 MG/DL (70-104); SODIUM 137 MMOL/L (135-145); TOTAL PROTEIN 8.4 G/DL (6.4-8.2); eGFR 32 ML/MIN
[2021-07-30] MEDS ORDERED: potassium Cl 20 mEq SR tablet PO STA (14:37)
[2021-07-30] MEDS ORDERED: HYDROcodone/acetaminophen 5mg/325mg tablet PO ONE (15:10)
[2021-07-30] MEDS ORDERED: heparin 10,000 units/1 ML INJ IV PRN ×2 (17:55→18:35)
[2021-07-30] MEDS ORDERED: heparin 10,000 units/1 ML INJ IV ONE (17:55)
[2021-07-30 18:12] LABS: PARTIAL THROMBOPLASTIN TIME 33 SECONDS (22-32)
[2021-07-30] MEDS ORDERED: ipratropium/albuterol 3ml nebule NEB PRN ×2 (18:35)
[2021-07-30] MEDS ORDERED: magnesium 2GM in 50ml NS 50 ML IV PRN (18:35)
[2021-07-30] MEDS ORDERED: potassium Cl 40MEQ/1/2NS 520ml 520 ML IV PRN ×2 (18:35)
[2021-07-30] MEDS ORDERED: acetaminophen 325mg tablet PO PRN (18:35)
[2021-07-30] MEDS ORDERED: PERFLUTREN PROTEIN-A MICROSPHR (Optison) 0.22 MG/ML 3ML VIAL IV PRN (18:35)
[2021-07-30] MEDS ORDERED: magnesium Cl slow-release 64mg tablet PO PRN (18:35)
[2021-07-30] MEDS ORDERED: ondansetron/PF 4mg/2ml inj IV PRN (18:35)
[2021-07-30] MEDS ORDERED: magnesium 4gm in 100ml NS 100 ML IV PRN (18:35)
[2021-07-30] MEDS ORDERED: heparin 25,000 UNIT/250ml bag 250 ML IV SCH (18:35)
[2021-07-30] MEDS ORDERED: potassium Cl 20 mEq SR tablet PO PRN (18:35)
[2021-07-30] MEDS ORDERED: SOTA80TA PO (18:38)
[2021-07-30] MEDS: heparin 25,000 UNIT/250ml bag 250 ML IV SCH (19:02)
[2021-07-30] MEDS: normal saline 1000ml 1,000 ML IV SCH (19:03)
[2021-07-30] MEDS: potassium Cl 20 mEq SR tablet PO PRN (19:07)
[2021-07-30] MEDS: K and/or MAG REPLACEMENT MC SCH (19:08)
[2021-07-31 01:46] LABS: BASOPHILS # (AUTO) 0.1 X10'3 (0-0.2); EOSINOPHILS # (AUTO) 0.3 X10'3 (0-0.9); EOSINOPHILS % (AUTO) 2.5 % (0-6); HEMATOCRIT 36.1 % (42.0-52.0); HEMOGLOBIN 12.3 g/dl (14.0-17.9); LYMPHOCYTES % (AUTO) 22.1 % (21-51); MEAN CORPUSCULAR HEMOGLOBIN 29.8 PG (27.0-31.0); MEAN CORPUSCULAR HGB CONC 34.1 g/dL (33.0-36.5); MEAN CORPUSCULAR VOLUME 87.2 FL (78-98); MEAN PLATELET VOLUME 7.4 FL (7.4-10.4); MONOCYTES # (AUTO) 1.1 X10'3 (0-0.9); MONOCYTES % (AUTO) 8.3 % (2-12); NEUTROPHILS # (AUTO) 9.1 X10'3 (1.8-7.7); NEUTROPHILS % (AUTO) 66.1 % (42-75); PLATELET COUNT 537 X10'3 (140-440); RED BLOOD COUNT 4.14 X10'6 (4.70-6.10); RED CELL DISTRIBUTION WIDTH 15.3 % (11.5-14.5); WHITE BLOOD COUNT 13.8 X10'3 (4.5-11.0)
[2021-07-31 02:02] LABS: ALBUMIN 2.6 G/DL (3.4-5.0); ANION GAP 6 (8-16); BLOOD UREA NITROGEN 43 MG/DL (7-18); BUN/CREATININE RATIO 27.2 (5.4-32.0); CALCIUM 9.2 MG/DL (8.5-10.1); CHLORIDE 98 MMOL/L (99-107); CREATININE 1.58 MG/DL (0.60-1.10); GLUCOSE 133 MG/DL (70-104); MAGNESIUM 2.3 MG/DL (1.5-2.4); POTASSIUM 3.3 MMOL/L (3.5-5.1); SODIUM 134 MMOL/L (135-145); TOTAL CARBON DIOXIDE 30.4 MMOL/L (24-32); eGFR 45 ML/MIN
--- NOTE | 2021-07-31 02:22 | NUR ---
heparin drip stopped due to high aptt will reschekc in 2 hours and restart if able
[2021-07-31] MEDS: K and/or MAG REPLACEMENT MC SCH ×2 (08:21→19:25)
[2021-07-31] MEDS: potassium Cl 20 mEq SR tablet PO PRN (08:24)
[2021-07-31] MEDS: HYDROcodone/acetaminophen 5mg/325mg tablet PO PRN ×4 (11:12→19:24)
[2021-07-31 13:00] VITALS: BP 131/81
[2021-07-31] MEDS: normal saline 1000ml 1,000 ML IV SCH (14:00)
[2021-07-31 15:00] VITALS: BP 129/80
[2021-07-31] MEDS: heparin 25,000 UNIT/250ml bag 250 ML IV SCH (17:31)
--- NOTE | 2021-07-31 17:43 | NUR ---
PAGER ID: [phone] MESSAGE: David Kennedy [phone] Did you want hypo/hyperglycemia on pt. with 9.6 AIC? Rianna [phone]
[2021-07-31] MEDS ORDERED: dextrose ORAL solution 15 GM/59 ML bottle PO PRN ×2 (17:50)
[2021-07-31] MEDS ORDERED: dextrose 50%-water 50ml dispensing syringe IV PRN ×2 (17:50)
[2021-07-31] MEDS ORDERED: MESSAGE TO PHARMACY PO ONE (17:50)
[2021-07-31] MEDS ORDERED: insulin Lispro (HumaLOG) vial - multi-dose SQ SCH (17:50)
[2021-07-31] MEDS ORDERED: glucagon, human recombinant 1mg kit SUBCUT PRN (17:50)
[2021-07-31 18:00] VITALS: BP 123/78
--- NOTE | 2021-07-31 18:25 | NUR ---
Gave report to Alex RICHARDS.
--- NOTE | 2021-07-31 18:43 | NUR ---
Patient in room PCU 3013. I have received report from Rianna RICHARDS and had the opportunity to ask questions and assume patient care.
[2021-07-31] MEDS ORDERED: sotalol 80mg tablet PO SCH (20:00)
[2021-07-31] MEDS ORDERED: furosemide 40mg tablet PO SCH (20:00)
[2021-07-31 20:28] VITALS: BP 120/68
[2021-07-31] MEDS ORDERED: insulin glargine (Lantus) pen - multi-dose SQ SCH ×2 (21:00)
[2021-07-31 22:00] VITALS: BP 142/88
[2021-08-01 02:22] VITALS: BP 150/86
[2021-08-01] MEDS: HYDROcodone/acetaminophen 5mg/325mg tablet PO PRN ×2 (03:21→09:21)
[2021-08-01 06:00] VITALS: BP 138/73
[2021-08-01 06:10] LABS: BASOPHILS # (AUTO) 0.1 X10'3 (0-0.2); BASOPHILS % (AUTO) 0.9 % (0-1); EOSINOPHILS # (AUTO) 0.4 X10'3 (0-0.9); EOSINOPHILS % (AUTO) 3.5 % (0-6); HEMATOCRIT 35.3 % (42.0-52.0); HEMOGLOBIN 11.9 g/dl (14.0-17.9); LYMPHOCYTES # (AUTO) 2.1 X10'3 (1.1-4.8); LYMPHOCYTES % (AUTO) 20.9 % (21-51); MEAN CORPUSCULAR HEMOGLOBIN 29.8 PG (27.0-31.0); MEAN CORPUSCULAR HGB CONC 33.7 g/dL (33.0-36.5); MEAN CORPUSCULAR VOLUME 88.4 FL (78-98); MEAN PLATELET VOLUME 7.4 FL (7.4-10.4); MONOCYTES # (AUTO) 0.8 X10'3 (0-0.9); MONOCYTES % (AUTO) 8.2 % (2-12); NEUTROPHILS # (AUTO) 6.7 X10'3 (1.8-7.7); NEUTROPHILS % (AUTO) 66.5 % (42-75); PLATELET COUNT 494 X10'3 (140-440); RED BLOOD COUNT 3.99 X10'6 (4.70-6.10); RED CELL DISTRIBUTION WIDTH 15.4 % (11.5-14.5); WHITE BLOOD COUNT 10.1 X10'3 (4.5-11.0)
[2021-08-01 06:15] LABS: ALBUMIN 2.5 G/DL (3.4-5.0); ANION GAP 5 (8-16); BLOOD UREA NITROGEN 34 MG/DL (7-18); BUN/CREATININE RATIO 23.1 (5.4-32.0); CALCIUM 8.8 MG/DL (8.5-10.1); CHLORIDE 100 MMOL/L (99-107); CREATININE 1.47 MG/DL (0.60-1.10); GLUCOSE 159 MG/DL (70-104); MAGNESIUM 2.2 MG/DL (1.5-2.4); POTASSIUM 3.4 MMOL/L (3.5-5.1); SODIUM 136 MMOL/L (135-145); TOTAL CARBON DIOXIDE 31.4 MMOL/L (24-32); eGFR 49 ML/MIN
--- NOTE | 2021-08-01 06:52 | NUR ---
Problems reprioritized. Patient report given, questions answered & plan of care reviewed with Bryson RICHARDS.
[2021-08-01 08:00] VITALS: BP 120/68
[2021-08-01] MEDS ORDERED: losartan 50mg tablet PO SCH (08:00)
[2021-08-01] MEDS ORDERED: metolazone 2.5mg tablet PO SCH (08:00)
[2021-08-01] MEDS ORDERED: potassium Cl 20 mEq SR tablet PO SCH (08:00)
[2021-08-01] MEDS ORDERED: CefTRIAXone 2gm/D5W 50ml BAG 50 ML IV SCH (08:00)
[2021-08-01] MEDS: K and/or MAG REPLACEMENT MC SCH (08:45)
[2021-08-01] MEDS: normal saline 1000ml 1,000 ML IV SCH (08:48)
[2021-08-01] MEDS ORDERED: nystatin 15 GM powder TP SCH (13:00)
[2021-08-01 13:51] VITALS: BP 164/84
[2021-08-01] MEDS ORDERED: APIX5TAB3 PO (14:30)
[2021-08-01] MEDS ORDERED: SOTA80TA PO (14:34)
[2021-08-01] MEDS ORDERED: lactobacillus rhamnosus 10,000 MMU CELLS/CAPSULE PO SCH (20:00)
[2021-08-01] MEDS ORDERED: apixaban 5mg tablet PO SCH (20:00)
== END 2021-08-01 16:30 | disposition home or self-care (01) | DRG 175 ==
LOC: ER 13:24 → ED HOLD 18:35 → PCU 3S 07-31 12:43
PROVIDERS: ADMIT Internal Medicine; ATTEND Internal Medicine
PROC: CB121ZZ Planar Nuclear Medicine Imaging of Lungs and Bronchi using Technetium 99m (Tc-99m) (ICD-10-PCS; principal; 2021-07-30)
DX: I26.99 Other pulmonary embolism without acute cor pulmonale (principal); N17.0 Acute kidney failure with tubular necrosis; I50.22 Chronic systolic (congestive) heart failure; I13.0 Hypertensive heart and chronic kidney disease with heart failure and stage 1 through stage 4 chronic kidney disease, or unspecified chronic kidney disease; E78.5 Hyperlipidemia, unspecified; I48.91 Unspecified atrial fibrillation; J44.9 Chronic obstructive pulmonary disease, unspecified; F12.90 Cannabis use, unspecified, uncomplicated; G47.30 Sleep apnea, unspecified; R55 Syncope and collapse; N18.30 Chronic kidney disease, stage 3 unspecified; E11.22 Type 2 diabetes mellitus with diabetic chronic kidney disease; T50.995A Adverse effect of other drugs, medicaments and biological substances, initial encounter; E87.6 Hypokalemia; E11.51 Type 2 diabetes mellitus with diabetic peripheral angiopathy without gangrene; Z95.0 Presence of cardiac pacemaker; Z89.611 Acquired absence of right leg above knee; Z79.4 Long term (current) use of insulin; Z86.711 Personal history of pulmonary embolism; Z86.718 Personal history of other venous thrombosis and embolism; Z86.74 Personal history of sudden cardiac arrest; Z82.49 Family history of ischemic heart disease and other diseases of the circulatory system; Z79.899 Other long term (current) drug therapy; Z79.01 Long term (current) use of anticoagulants; Y92.89 Other specified places as the place of occurrence of the external cause
CPT/HCPCS: 36415; 71045; 78582; 80048; 80053; 82948; 83735; 83880; 84132; 84145; 84484; 85025; 85379; 85730; 87081; 93005; 93308; 94760; 96360; 96361; 97110; 97161; 97530; 99291; A9539; A9540; G0378; J0696; J1644; J1815; J7030